=== PATIENT | female | born 1935 | race Hispanic/Latino ===

== ENCOUNTER 2017-09-04 19:25 | Emergency (ER) | payer MEDICARE ==
[2017-09-04 19:25] VITALS: BMI 19.8
== END 2017-09-04 20:44 | disposition left against medical advice (07) ==
LOC: ED 19:25
DX: Z02.89 Encounter for other administrative examinations (principal); R10.9 Unspecified abdominal pain

== ENCOUNTER 2017-09-09 13:15 | Inpatient (IN) | payer MEDICARE ==
[2017-09-09 15:17] LABS: BASO # 0.04 K/mm3 (0.0-2.0); BASO % 0.5 % (0.0-3.0); EOS # 0.1 (0.0-0.7); EOS % 0.8 % (1.5-5.0); GRAN # 6.33 (1.4-6.5); GRAN % 79.1 % (50.0-68.0); HEMOGLOBIN 14.1 g/dL (12.0-16.0); LYMPH # 1.1 (1.2-3.4); LYMPH % 13.8 % (22.0-35.0); MEAN CELL VOLUME 90.1 fl (80.0-105.0); MEAN CORPUSCULAR HEMOGLOBIN 30.3 pg (25.0-35.0); MEAN CORPUSCULAR HGB CONC 33.6 g/dl (31.0-37.0); MONO # 0.5 (0.1-0.6); MONO % 5.8 % (1.0-6.0); RBC 4.66 10^6/uL (3.5-6.1); RED CELL DISTRIBUTION WIDTH 13.3 % (11.5-14.5)
[2017-09-09 15:20] LABS: ALB/GLOB RATIO 1.4 (1.1-1.8); ALBUMIN 4.1 g/dL (3.0-4.8); ALT/SGPT 27 U/L (7-56); AST/SGOT 46 U/L (14-36); BLOOD UREA NITROGEN 25 mg/dL (7-21); CALCIUM 10.4 mg/dL (8.4-10.5); GFR AFRICAN-AMERICAN > 60; GFR NON-AFRICAN AMERICAN 60; MAGNESIUM 1.8 mg/dL (1.7-2.2)
[2017-09-09 15:31] LABS: TROPONIN I < 0.01 ng/mL
[2017-09-09 15:35] LABS: INR 1.07 (0.93-1.08); PARTIAL THROMBOPLASTIN TIME 30.3 Seconds (25.1-36.5); PROTHROMBIN TIME 12.2 SECONDS (9.4-12.5)
--- NOTE | 2017-09-09 15:41 | CT ---
PROCEDURE: CT HEAD WITHOUT CONTRAST. HISTORY: s/p trauma/dizziness COMPARISON: None available. TECHNIQUE: Axial computed tomography images were obtained through the head/brain without intravenous contrast. Radiation dose: Total exam DLP = 835 mGy-cm. This CT exam was performed using one or more of the following dose reduction techniques: Automated exposure control, adjustment of the mA and/or kV according to patient size, and/or use of iterative reconstruction technique. FINDINGS: HEMORRHAGE: No intracranial hemorrhage. BRAIN: No mass effect or edema. No atrophy or chronic microvascular ischemic changes. VENTRICLES: Unremarkable. No hydrocephalus. CALVARIUM: Unremarkable. PARANASAL SINUSES: Unremarkable as visualized. No significant inflammatory changes. MASTOID AIR CELLS: Unremarkable as visualized. No inflammatory changes. OTHER FINDINGS: None. IMPRESSION: No acute findings
[2017-09-09 15:47] VITALS: BMI 19.0
[2017-09-09 16:10] LABS: PH,URINE 6.5 (4.7-8.0); URINE BILIRUBIN NEGATIVE (NEGATIVE); URINE BLOOD TRACE-INTACT (NEGATIVE); URINE GLUCOSE (UA) NEGATIVE (NEGATIVE); URINE LEUKOCYTE ESTERASE SMALL Leu/uL (NEGATIVE); URINE NITRATE POSITIVE (NEGATIVE); URINE PROTEIN NEGATIVE mg/dL (<30 mg/dL); URINE UROBILINOGEN 0.2 E.U./dL (<1 E.U./dL)
--- NOTE | 2017-09-09 16:16 | ED PDOC ---
Arrival/HPI - General Chief Complaint: Trauma Time Seen by Provider: 09/09/17 14:23 Historian: Patient - History of Present Illness Narrative History of Present Illness (Text): 09/09/17 16:13 82yo female who present with complaint of dizziness and head laceration s/p the the fall. The daughter by the bedside states patient has not been feeling fine for a week. States she was nauseous, had abdominal pain with poor appetite. She states that the symptoms resolved and then she suddenly became dizzy today and fell sustaining a head laceration. States she wasn't sure if she had LOC. She otherwise denies any current somatic complaint. Denies focal weakness, dizziness , visual changes, abdominal pain, nausea, vomiting, back pain, any other complaint. Past Medical History - Provider Review Nursing Documentation Reviewed: Yes - Infectious Disease Hx of Infectious Diseases: None - Tetanus Immunization Tetanus Immunization: Unknown - Cardiac Hx Cardiac Disorders: Yes Hx Hypertension: Yes - Pulmonary Hx Respiratory Disorders: No - Neurological Hx Neurological Disorder: No - HEENT Hx HEENT Disorder: Yes Hx Cataracts: Yes Hx Deafness: Yes - Renal Hx Renal Disorder: No - Endocrine/Metabolic Hx Endocrine Disorders: Yes - Hematological/Oncological Hx Blood Disorders: No - Integumentary Hx Dermatological Disorder: No - Musculoskeletal/Rheumatological Hx Falls: No - Gastrointestinal Hx Gastrointestinal Disorders: No - Genitourinary/Gynecological Hx Genitourinary Disorders: No - Psychiatric Hx Psychophysiologic Disorder: No Hx Substance Use: No - Surgical History Hx Cataract Extraction: Yes Other/Comment: stents in legs - Anesthesia Hx Anesthesia: Yes Hx Anesthesia Reactions: No - Suicidal Assessment Feels Threatened In Home Enviroment: No Family/Social History - Physician Review Nursing Documentation Reviewed: Yes Family/Social History: Unknown Family HX Smoking Status: Former Smoker Hx Alcohol Use: No Hx Substance Use: No Hx Substance Use Treatment: No Allergies/Home Meds Allergies/Adverse Reactions: Allergies Penicillins Allergy (Mild, Verified 09/09/17 13:24) ANAPHYLAXIS Home Medications: Home Meds Medication Instructions Recorded Confirmed Alendronate [Fosamax] 10 mg PO QWK 09/09/17 09/09/17 Alprazolam [Xanax] 0.5 mg PO DAILY 09/09/17 09/09/17 Lisinopril [Zestril] 30 mg PO DAILY 09/09/17 09/09/17 Lovastatin [Lovastatin] 10 mg PO DAILY 09/09/17 09/09/17 Naproxen [EC-Naprosyn] 500 mg PO DAILY 09/09/17 09/09/17 Review of Systems - Physician Review All systems were reviewed & negative as marked: Yes - Review of Systems Constitutional: Normal Eyes: Normal ENT: Normal Respiratory: Normal Cardiovascular: Normal Gastrointestinal: Normal Genitourinary Female: Normal Musculoskeletal: Normal Skin: Laceration Neurological: Dizziness. absent: Headache, Focal Weakness, Gait Changes, Speech Changes, Facial Droop Endocrine: Normal Hemo/Lymphatic: Normal Psychiatric: Normal Physical Exam Vital Signs Reviewed: Yes Vital Signs Temp Pulse Resp BP Pulse Ox 09/09/17 15:45 97.9 F 88 18 156/83 H 98 09/09/17 13:27 98.6 F 114 H 16 132/66 99 Temperature: Afebrile Blood Pressure: Normal Pulse: Tachycardic Respiratory Rate: Normal Appearance: Positive for: Well-Appearing, Non-Toxic, Comfortable Pain Distress: None Mental Status: Positive for: Alert and Oriented X 3 - Systems Exam Head: Present: Atraumatic, Normocephalic Pupils: Present: PERRL Extroacular Muscles: Present: EOMI Conjunctiva: Present: Normal Mouth: Present: Moist Mucous Membranes Neck: Present: Normal Range of Motion Respiratory/Chest: Present: Clear to Auscultation, Good Air Exchange. No: Respiratory Distress, Accessory Muscle Use Cardiovascular: Present: Regular Rate and Rhythm, Normal S1, S2. No: Murmurs Abdomen: Present: Normal Bowel Sounds. No: Tenderness, Distention, Peritoneal Signs Back: Present: Normal Inspection Upper Extremity: Present: Normal Inspection. No: Cyanosis, Edema Lower Extremity: Present: Normal Inspection. No: Edema Neurological: Present: GCS=15, CN II-XII Intact, Speech Normal, Motor Func Grossly Intact, Normal Sensory Function, Normal Cerebellar Funct, Norm Deep Tendon Reflexes, Memory Normal, Other (No focal neurological deficit) Skin: Present: Warm, Dry, Normal Color, Laceration (2.ocm linear laceration to the occipital scalp). No: Rashes Psychiatric: Present: Alert, Oriented x 3, Normal Insight, Normal Concentration Medical Decision Making ED Course and Treatment: 09/10/17 01:59 82yo female present with complaint of dizziness and scalp laceration. She was neurologically intact in ED. AAO x3. She denied pain or any other somatic complaint in ED. Scalp laceration was irrigated with NS and approximated with 4staples. Lab was unremarkable. PT had UTI and was started on Levaquin Head CT was negative PT however was admitted secondary to complaint of dizziness, her near syncopal episode for further evaluation of possible cardiogenic or neurogenic cause. EKG NSR with Incomplete RBBB @94bpm Case was DW Dr. Gastelum and he admitted pt. - Lab Interpretations Lab Results: 09/09/17 14:24 09/09/17 14:24 Lab Results 09/09/17 14:24: Sodium 139, Potassium 4.3, Chloride 102, Carbon Dioxide 27, Anion Gap 15, BUN 25 H, Creatinine 0.9, Est GFR ( Amer) > 60, Est GFR ( Non-Af Amer) 60, Random Glucose 123 H, Calcium 10.4, Magnesium 1.8, Total Bilirubin 0.6, AST 46 H, ALT 27, Alkaline Phosphatase 59, Lactate Dehydrogenase 450, Total Creatine Kinase 82, Troponin I < 0.01, Total Protein 7.1, Albumin 4.1 , Globulin 3.0, Albumin/Globulin Ratio 1.4 09/09/17 14:24: Urine Color Yellow, Urine Appearance Sl cloudy, Urine pH 6.5, Ur Specific [place] 1.010, Urine Protein Negative, Urine Glucose (UA) Negative, Urine Ketones Negative, Urine Blood Trace-intact H, Urine Nitrate Positive H, Urine Bilirubin Negative, Urine Urobilinogen 0.2, Ur Leukocyte Esterase Small H , Urine RBC 1 - 3, Urine WBC 10 - 15, Ur Epithelial Cells 4 - 5, Urine Bacteria Large 09/09/17 14:24: PT 12.2, INR 1.07, APTT 30.3 09/09/17 14:24: WBC 8.0, RBC 4.66, Hgb 14.1, Hct 42.0, MCV 90.1, MCH 30.3, MCHC 33.6, RDW 13.3, Plt Count 234, MPV 11.0, Gran % 79.1 H, Lymph % (Auto) 13.8 L, [place] % (Auto) 5.8, Eos % (Auto) 0.8 L, Baso % (Auto) 0.5, Gran # 6.33, Lymph # 1.1 L, [place] # 0.5, Eos # 0.1, Baso # 0.04 - RAD Interpretation Radiology Orders: 09/09/17 14:24 HEAD W/O CONTRAST [CT] Stat - Medication Orders Current Medication Orders: Atorvastatin Calcium (Lipitor) 10 mg PO HS MIGNON Lisinopril (Zestril) 30 mg PO DAILY MIGNON Discontinued Medications Acetaminophen (Tylenol 325mg Tab) 650 mg PO STAT STA Stop: 09/09/17 22:31 Last Admin: 09/09/17 22:37 Dose: 650 mg [facility] Pain/Vitals Document 09/09/17 22:37 MV (Rec: 09/09/17 22:37 MV [id number]) Pain Reassessment Is This A Pain ReAssessment? No Sleep Is patient sleeping during reassessment? No Presence of Pain Presence of Pain Yes Pain Scale Used Pain Scale Used Numeric Location Pain Location Body Record Press Tender Description Throbbing Intensity 8 Pain Behavior Facial Grimacing Alleviating Factors Medication Re-Assess: [facility] Pain/Vitals Document 09/09/17 23:37 MV (Rec: 09/10/17 01:31 MV [id number]) Pain Reassessment Is This A Pain ReAssessment? Yes Sleep Is patient sleeping during reassessment? Yes Levofloxacin/Dextrose (Levaquin 500mg) 500 mg in 100 mls @ 100 mls/hr IVPB STAT STA PRN Reason: Protocol Stop: 09/09/17 17:29 Last Admin: 09/09/17 16:56 Dose: 100 mls/hr eMAR Start Stop Document 09/09/17 16:56 LA (Rec: 09/09/17 16:56 LA [id number]) Intravenous Solution Start Date 09/09/17 Start Time 16:56 End Date 09/09/17 End time 17:56 Total Infusion Time 60 Ciprofloxacin (Cipro 200mg/100ml D5w) 100 mls @ 67 mls/hr IVPB Q12 MIGNON PRN Reason: Protocol Stop: 09/09/17 23:30 Last Admin: 09/09/17 22:21 Dose: 67 mls/hr eMAR Start Stop Document 09/09/17 22:21 MV (Rec: 09/09/17 22:21 MV [id number]) Intravenous Solution Start Date 09/09/17 Start Time 22:21 End Date 09/09/17 End time 23:51 Total Infusion Time 90 Pneumococcal Polyvalent Vaccine (Pneumovax 23 Vaccine) 0.5 ml IM .ONCE ONE Stop: 09/09/17 19:57 Procedure: Wound Repair - Consent Obtained Consent obtained: Verbal - Performed by Performed by: Mid-level Provider - Indications Indication(s):: Laceration - Location Location:: Scalp Shape:: Linear Dimensions Length cm: 2.0 - Debris Debris:: None - Irrigated Irrigated with ml of normal saline: 50 - Complexity Complexity:: Intermediate (2 layer) - Wound repair method [place]:: Tissue glue (Edges approximated 4staples) - Muscle repiar layer closed with Muscle repair layer closed with:: Wound well approximated, Abx ointment applied , Tetanus ordered - Patient tolerated procedure Patient Tolerated Procedure:: Well Disposition/Present on Arrival - Present on Arrival Any Indicators Present on Arrival: No History of DVT/PE: No History of Uncontrolled Diabetes: No Urinary Catheter: No History of Decub. Ulcer: No History Surgical Site Infection Following: None - Disposition Have Diagnosis and Disposition been Completed?: Yes Diagnosis: Laceration, Near syncope, UTI (urinary tract infection) Disposition: HOSPITALIZED Disposition Time: 16:15 Patient Problems: Current Active Problems Problem Status Onset Laceration Acute Near syncope Acute UTI (urinary tract infection) Acute Condition: FAIR
[2017-09-09 16:27] LABS: URINE APPEARANCE SL CLOUDY (CLEAR); URINE COLOR YELLOW (YELLOW)
[2017-09-09] MEDS ORDERED: levoFLOXacin 500 mg in D5W 500 MG/100 ML BAG IVPB STA (16:30)
[2017-09-09 16:31] LABS: URINE BACTERIA LARGE (NEG)
[2017-09-09] MEDS ORDERED: Influenza Vaccine 60 mcg/0.5 mL SYR (4YR UP) IM ONE (19:56)
[2017-09-09] MEDS ORDERED: Pneumococcal 23-Valent Vaccine IM ONE (19:56)
[2017-09-09] MEDS ORDERED: Ciprofloxacin 200mg/100ml D5W 100 ML IVPB SCH (22:00)
--- NOTE | 2017-09-09 22:30 | CP.PCM.PN ---
Subjective - Date & Time of Evaluation Date of Evaluation: 09/09/17 Time of Evaluation: 22:30 - Subjective Subjective: Patient was seen at bedside. Complains of mild headache in frontal region. No nausea, dizziness, weakness, paraesthesia. Medical record was reviewed. This 82 year old white woman was admitted with chills , mild headache. Has PMH of HTN,dyslipidemia. Objective - Vital Signs/Intake and Output Vital Signs (last 24 hours): Temp Pulse Resp BP Pulse Ox 97.8 F 81 18 137/60 99 09/09/17 19:47 09/09/17 19:47 09/09/17 19:47 09/09/17 19:47 09/09/17 17:43 - Medications Medications: Current Medications Atorvastatin Calcium (Lipitor) 10 mg PO HS MIGNON Ciprofloxacin (Cipro 200mg/100ml D5w) 100 mls @ 67 mls/hr IVPB Q12 MIGNON PRN Reason: Protocol Stop: 09/09/17 23:30 Last Admin: 09/09/17 22:21 Dose: 67 mls/hr Lisinopril (Zestril) 30 mg PO DAILY MIGNON - Labs Labs: PT 12.2 SECONDS (9.4-12.5) 09/09/17 14:24 INR 1.07 (0.93-1.08) 09/09/17 14:24 APTT 30.3 Seconds (25.1-36.5) 09/09/17 14:24 Most Recent Lab Values WBC 8.0 10^3/ul (4.5-11.0) 09/09/17 14:24 RBC 4.66 10^6/uL (3.5-6.1) 09/09/17 14:24 Hgb 14.1 g/dL (12.0-16.0) 09/09/17 14:24 Hct 42.0 % (36.0-48.0) 09/09/17 14:24 MCV 90.1 fl (80.0-105.0) 09/09/17 14:24 MCH 30.3 pg (25.0-35.0) 09/09/17 14:24 MCHC 33.6 g/dl (31.0-37.0) 09/09/17 14:24 RDW 13.3 % (11.5-14.5) 09/09/17 14:24 Plt Count 234 10^3/uL (120.0-450.0) 09/09/17 14:24 MPV 11.0 fl (7.0-11.0) 09/09/17 14:24 Gran % 79.1 % (50.0-68.0) H 09/09/17 14:24 Lymph % (Auto) 13.8 % (22.0-35.0) L 09/09/17 14:24 [place] % (Auto) 5.8 % (1.0-6.0) 09/09/17 14:24 Eos % (Auto) 0.8 % (1.5-5.0) L 09/09/17 14:24 Baso % (Auto) 0.5 % (0.0-3.0) 09/09/17 14:24 Gran # 6.33 (1.4-6.5) 09/09/17 14:24 Lymph # 1.1 (1.2-3.4) L 09/09/17 14:24 [place] # 0.5 (0.1-0.6) 09/09/17 14:24 Eos # 0.1 (0.0-0.7) 09/09/17 14:24 Baso # 0.04 K/mm3 (0.0-2.0) 09/09/17 14:24 PT 12.2 SECONDS (9.4-12.5) 09/09/17 14:24 INR 1.07 (0.93-1.08) 09/09/17 14:24 APTT 30.3 Seconds (25.1-36.5) 09/09/17 14:24 Sodium 139 mmol/L (132-148) 09/09/17 14:24 Potassium 4.3 mmol/L (3.6-5.0) 09/09/17 14:24 Chloride 102 mmol/L (98-107) 09/09/17 14:24 Carbon Dioxide 27 mmol/L (21-33) 09/09/17 14:24 Anion Gap 15 (10-20) 09/09/17 14:24 BUN 25 mg/dL (7-21) H 09/09/17 14:24 Creatinine 0.9 mg/dl (0.7-1.2) 09/09/17 14:24 Est GFR ( Amer) > 60 09/09/17 14:24 Est GFR (Non-Af Amer) 60 09/09/17 14:24 Random Glucose 123 mg/dL (70-110) H 09/09/17 14:24 Calcium 10.4 mg/dL (8.4-10.5) 09/09/17 14:24 Magnesium 1.8 mg/dL (1.7-2.2) 09/09/17 14:24 Total Bilirubin 0.6 mg/dL (0.2-1.3) 09/09/17 14:24 AST 46 U/L (14-36) H 09/09/17 14:24 ALT 27 U/L (7-56) 09/09/17 14:24 Alkaline Phosphatase 59 U/L (38-126) 09/09/17 14:24 Lactate Dehydrogenase 450 U/L (333-699) 09/09/17 14:24 Total Creatine Kinase 82 U/L (35-230) 09/09/17 14:24 Troponin I < 0.01 ng/mL 09/09/17 14:24 Total Protein 7.1 g/dL (5.8-8.3) 09/09/17 14:24 Albumin 4.1 g/dL (3.0-4.8) 09/09/17 14:24 Globulin 3.0 gm/dL 09/09/17 14:24 Albumin/Globulin Ratio 1.4 (1.1-1.8) 09/09/17 14:24 Urine Color Yellow (YELLOW) 09/09/17 14:24 Urine Appearance Sl cloudy (CLEAR) 09/09/17 14:24 Urine pH 6.5 (4.7-8.0) 09/09/17 14:24 Ur Specific [place] 1.010 (1.005-1.035) 09/09/17 14:24 Urine Protein Negative mg/dL (<30 mg/dL) 09/09/17 14:24 Urine Glucose (UA) Negative mg/dL (NEGATIVE) 09/09/17 14:24 Urine Ketones Negative mg/dL (NEGATIVE) 09/09/17 14:24 Urine Blood Trace-intact (NEGATIVE) H 09/09/17 14:24 Urine Nitrate Positive (NEGATIVE) H 09/09/17 14:24 Urine Bilirubin Negative (NEGATIVE) 09/09/17 14:24 Urine Urobilinogen 0.2 E.U./dL (<1 E.U./dL) 09/09/17 14:24 Ur Leukocyte Esterase Small [place]/uL (NEGATIVE) H 09/09/17 14:24 Urine RBC 1 - 3 /hpf (0-2) 09/09/17 14:24 Urine WBC 10 - 15 /hpf (0-6) 09/09/17 14:24 Ur Epithelial Cells 4 - 5 /hpf (0-5) 09/09/17 14:24 Urine Bacteria Large (NEG) 09/09/17 14:24 - Constitutional Appears: Well, No Acute Distress - Head Exam Head Exam: ATRAUMATIC, NORMAL INSPECTION, NORMOCEPHALIC Additional comments: There is a bandage on scalp. - Eye Exam Eye Exam: Normal appearance - ENT Exam ENT Exam: Normal External Ear Exam - Neck Exam Neck Exam: Normal Inspection - Respiratory Exam Respiratory Exam: NORMAL BREATHING PATTERN - Cardiovascular Exam Cardiovascular Exam: absent: JVD - GI/Abdominal Exam GI & Abdominal Exam: absent: Distended - Rectal Exam Rectal Exam: Deferred - Exam Additional comments: Deferred. - Extremities Exam Extremities Exam: Normal Inspection - Back Exam Back Exam: NORMAL INSPECTION - Neurological Exam Neurological Exam: Alert, Awake, Oriented x3 - Psychiatric Exam Psychiatric exam: Normal Affect, Normal Mood - Skin Skin Exam: Normal Color Assessment and Plan - Assessment and Plan (Free Text) Assessment: Headache. HTN. Dyslipidemia. Plan: Tylenol 650 mg PO x 1. Continue present management.
[2017-09-10] MEDS ORDERED: TDAP Vaccine 0.5 mL Syr IM ONE (01:58)
[2017-09-10] MEDS ORDERED: Ciprofloxacin 200mg/100ml D5W 100 ML IVPB SCH (10:00)
--- NOTE | 2017-09-10 11:36 | HP ---
HISTORY OF PRESENT ILLNESS: The patient is an 82-year-old white female with history of mild hypertension, mild hyperlipidemia. The patient had been in her house, had been feeling nauseous during the day, loss of appetite, had bend over to pick something up. When she stood up, the patient became lightheaded and dizzy, fell back. Possible syncope, striking her head on the table causing excessive bleeding from her scalp. The patient came to the emergency room because the bleeding was not stopped. She has no memory of whether she had a syncopal episode or not. She denies any history of seizure disorder. She denies any loss of feeling or strength in the upper and lower extremities. She denies any loss of vision or of impediment to speech. She was evaluated in the emergency room. She had stitches placed in her scalp. She was found to be still lightheadedness and dizzy and nauseous. Also, was found to have a urinary tract infection on laboratory data and was admitted to the hospital. PHYSICAL EXAMINATION: GENERAL: Shows a well-developed, but thin white female, in no apparent distress. HEENT: Essentially within normal limits. HEART: Reveals sinus rhythm. No S3 or murmurs. CHEST: Clear to auscultation and percussion. Carotids are without bruits. ABDOMEN: Benign. EXTREMITIES: No cyanosis, clubbing or edema. There is no CVA tenderness. There is no tenderness over the suprapubic area. The patient does have a laceration of the occipital scalp, which has been closed with sutures and the wounds are clean and dry. NEUROLOGIC: Grossly intact. There is no focal lateralizing defects. Cranial nerves II through XII are intact. The patient's speech is fluent. She is awake and oriented to time, person and place. IMPRESSION: An 82-year-old white female presenting with a syncopal episode, laceration of the scalp, urinary tract infection and nausea and vomiting. Ulysses Gastelum MD
[2017-09-10] MEDS: Tmp-Smz 800 mg-160 mg DS Tab PO SCH ×2 (11:48→18:51)
--- NOTE | 2017-09-10 20:57 | CARD ---
APPROVED REPORT EKG Measurement Heart [id number] ID [id number] <Conclusion> Normal sinus rhythm Possible Left atrial enlargement Incomplete right bundle branch block Nonspecific T wave abnormality Prolonged QT Abnormal ECG
[2017-09-11] MEDS: Tmp-Smz 800 mg-160 mg DS Tab PO SCH ×2 (09:12→18:13)
[2017-09-11] MEDS ORDERED: Alum-Mag Hydrox-Simethicone Susp (30 mL) PO ONE (09:43)
--- NOTE | 2017-09-11 13:05 | US ---
PROCEDURE: Bilateral carotid artery duplex ultrasound HISTORY: Carotid stenosis syncope PHYSICIAN(S): Benigno Thornton MD. TECHNIQUE: Duplex sonography and color-flow Doppler were used to evaluate the carotid bifurcations and limited segments of the vertebral arteries bilaterally. FINDINGS: There is moderate irregular heterogeneous echogenic plaque noted at the carotid bifurcations bilaterally. The peak systolic velocity in the proximal right internal carotid artery is 225 cm/sec. This corresponds to a 60-79 percent proximal right ICA stenosis. Normal systolic velocities are noted in the proximal right external carotid artery. There is antegrade flow in the right vertebral artery. The peak systolic velocity in the proximal left internal carotid artery is 127 cm/sec. This corresponds to a 40-59 % proximal left ICA stenosis. Normal systolic velocities are noted in the proximal left external carotid artery. There is antegrade flow in the dominant left vertebral artery. IMPRESSION: 1. 60-79 percent proximal right ICA stenosis. 2. 40-59 percent proximal left ICA stenosis. 3. Antegrade flow in both vertebral arteries.
--- NOTE | 2017-09-11 13:10 | PN ---
DATE: 09/11/2017 SUBJECTIVE: An 82-year-old white female admitted to the hospital after a syncopal episode, hitting back of her head, lacerating her head, having to be stapled. The patient continues to have nausea, abdominal pain, lightheadedness, dizziness, and difficulty with bouts. PHYSICAL EXAMINATION: Otherwise unremarkable. Workup for syncope. The patient will get physical therapy and possible TCU evaluation and also GI evaluation. Ulysses Gastelum MD
--- NOTE | 2017-09-11 22:32 | CP.PCM.PN ---
Subjective - Date & Time of Evaluation Date of Evaluation: 09/11/17 Time of Evaluation: 22:31 - Subjective Subjective: draft gas pain maalox did not work this am request med rx, simethicone Objective - Vital Signs/Intake and Output Vital Signs (last 24 hours): Temp Pulse Resp BP Pulse Ox 97.6 F 86 20 166/75 H 95 09/11/17 16:00 09/11/17 18:00 09/11/17 16:00 09/11/17 16:00 09/11/17 16:00 - Medications Medications: Current Medications Acetaminophen (Tylenol 325mg Tab) 650 mg PO Q6H PRN PRN Reason: Headache Last Admin: 09/10/17 18:51 Dose: 650 mg Atorvastatin Calcium (Lipitor) 10 mg PO HS MIGNON Last Admin: 09/11/17 21:39 Dose: 10 mg Lisinopril (Zestril) 30 mg PO DAILY MIGNON Last Admin: 09/11/17 09:13 Dose: 30 mg Ondansetron HCl (Zofran Tab) 4 mg PO Q8H PRN PRN Reason: Nausea/Vomiting Pantoprazole Sodium (Protonix Ec Tab) 40 mg PO 0600 MIGNON Trimethoprim/Sulfamethoxazole (Bactrim Ds Tab) 1 tab PO BID MIGNON PRN Reason: Protocol Last Admin: 09/11/17 18:13 Dose: 1 tab - Labs Labs: PT 12.2 SECONDS (9.4-12.5) 09/09/17 14:24 INR 1.07 (0.93-1.08) 09/09/17 14:24 APTT 30.3 Seconds (25.1-36.5) 09/09/17 14:24
[2017-09-11] MEDS ORDERED: Simethicone 80 mg Chewtab PO STA (22:33)
--- NOTE | 2017-09-11 22:38 | CON ---
DATE: 09/11/2017 REQUESTING PHYSICIAN: Dr. Gastelum. REASON FOR CONSULT: I have been asked to see this 82-year-old female who was experiencing dizziness for several days, fell at home and sustained a scalp laceration, requiring suturing in the emergency room. I have been asked to see this patient for nausea and vague abdominal discomfort. These symptoms improved when she felt dizzy and fell at home. She denies any weight loss, rectal bleeding, melena, hematemesis, fevers, or chills. PAST MEDICAL HISTORY: Notable for hypertension, peripheral vascular disease. PAST SURGICAL HISTORY: Notable for cataract surgery. SOCIAL HISTORY: She denies alcohol use. She quit cigarette smoking many years ago. MEDICATIONS AT HOME: Include alendronate, alprazolam, lisinopril, lovastatin, and naproxen. PHYSICAL EXAMINATION: GENERAL: Elderly female, lying in bed, in no acute distress. VITAL SIGNS: Reveal temperature of 98, blood pressure 156/77, heart rate of 81. HEENT: Reveals a laceration in her left posterior scalp in the occipital region with multiple trevor. It appears there appears to be 3. Conjunctivae pink. Sclerae white. NECL: Supple. CHEST: Reveals lungs to be clear. HEART: Reveals regular rate and rhythm. ABDOMEN: Soft, nontender. EXTREMITIES: Show no edema. LABORATORY DATA: Reveals white blood cell count of 8, hemoglobin 14, platelet count 234,000. Chemistries reveal BUN 25, creatinine 0.9. IMPRESSION: An 82-year-old female with status post fall at home, sustaining a left posterior scalp laceration. The patient has been having symptoms of nausea, mild abdominal discomfort with some reflux, and loss of appetite for several days prior to the fall. The patient may have some component of dehydration leading to her fall. The patient has never had an endoscopy or colonoscopy. RECOMMENDATIONS: 1. Continue Protonix 40 mg once a day. 2. Encourage oral intake and fluids. 3. I will range the patient to have an endoscopy as an outpatient. Gustavo Khan MD
[2017-09-12] MEDS: Pantoprazole 40 mg EC Tab PO SCH (06:22)
[2017-09-12] MEDS: Tmp-Smz 800 mg-160 mg DS Tab PO SCH ×2 (09:03→17:51)
--- NOTE | 2017-09-12 11:22 | CARD ---
APPROVED REPORT EXAM: Two-dimensional and M-mode echocardiogram with Doppler and color Doppler. Other Information Quality : FairRhythm : INDICATION Syncope 2D DIMENSIONS Left Atrium (2D)3.6 (1.6-4.0cm)IVSd0.8 (0.7-1.1cm) LVDd3.9 (3.9-5.9cm)PWd0.9 (0.7-1.1cm) LVDs2.7 (2.5-4.0cm)FS (%) 32.0 % LVEF (%)60.0 (>50%) M-Mode DIMENSIONS Aortic Root2.90 (2.2-3.7cm)Aortic Cusp Exc.1.50 (1.5-2.0cm) Aortic Valve AoV Peak Pflscsdy654.0cm/s Mitral Valve MV E Ijqdivit63.8cm/sMV A Qotbasuf41.2cm/sE/A ratio0.8 TDI Lateral E' Peak V10.90cm/sMedial E' Peak V7.51cm/sE/Lateral E'4.9 E/Medial E'7.2 Pulmonary Valve PV Peak Ewzoxohx00.6cm/sPV Peak Grad.2mmHg Tricuspid Valve TR Peak [id number]/sRAP [id number] Peak Gr.31mmHg [id number] LEFT VENTRICLE The left ventricle is normal size. There is normal left ventricular wall thickness. The left ventricular function is normal. The left ventricular ejection fraction is within the normal range. There is normal LV segmental wall motion. RIGHT VENTRICLE The right ventricle is normal size. ATRIA The left atrium size is normal. The right atrium size is normal. The interatrial septum is intact with no evidence for an atrial septal defect. AORTIC VALVE The aortic valve is mildly calcified. MITRAL VALVE The mitral valve is normal in structure. Mitral regurgitation is mild. TRICUSPID VALVE The tricuspid valve is normal in structure. There is mild tricuspid regurgitation. PULMONIC VALVE The pulmonic valve is not well visualized. GREAT VESSELS The aortic root is normal in size. PERICARDIAL EFFUSION There is no pericardial effusion. <Conclusion> The left ventricle is normal size. There is normal left ventricular wall thickness. The left ventricular function is normal. The aortic valve is mildly calcified. Aortic sclerosis. Mitral regurgitation is mild. There is mild tricuspid regurgitation.
--- NOTE | 2017-09-12 19:19 | PN ---
DATE: SUBJECTIVE: An 82-year-old white female with history of mild hypertension who had a syncopal episode falling back striking the back of her head with lacerations requiring stapling of the back of her occipital scalp. Patient also had several days of severe nausea and vomiting, which has resolved. Today, she is tolerating her diet better. She is having workup of her syncope and confusion. Her wounds are clean and dry. PHYSICAL EXAMINATION: CHEST: Clear to auscultation and percussion. HEART: S1, S2, regular sinus rhythm. ABDOMEN: Benign. PLAN: Awaiting GI evaluation and continue workup for her syncope. Awaiting a Holter monitor. Ulysses Gastelum MD
--- NOTE | 2017-09-12 21:35 | PN ---
DATE: 09/12/2017 SUBJECTIVE: The patient had an episode of gassy abdominal pain. She was given simethicone with prompt relief. She denies any abdominal pain currently. She denies any nausea, vomiting. She denies any dizziness. She is tolerating solid foods. PHYSICAL EXAMINATION VITAL SIGNS: Reveal temperature of 97.7, blood pressure 150/78, heart rate of 84. HEENT: Reveals a scalp laceration on her left occiput. There is no bleeding in this area. Sclerae white. Conjunctivae pink. NECK: Supple. CHEST: Lungs are clear. HEART: Exam reveals a regular rate and rhythm. ABDOMEN: Soft, nontender. EXTREMITY: Show no edema. LABORATORY DATA: No new laboratory data are available. IMPRESSION: 1. Status post fall with left occipital scalp laceration. 2. Abdominal pain associated with nausea which has improved. The patient is tolerating a diet. RECOMMENDATIONS: 1. Continue Protonix. 2. Outpatient endoscopy. 3. The patient is being evaluated for TCU for subacute rehabilitation. Gustavo Khan MD
[2017-09-13] MEDS: Pantoprazole 40 mg EC Tab PO SCH (06:01)
[2017-09-13] MEDS ORDERED: Iodixanol 320 MG/ML 100 ML BOTTLE IV ONE (07:51)
--- NOTE | 2017-09-13 08:36 | CARD ---
APPROVED REPORT Reason for Test: SYNCOPE Hookup date: 2017-09-11 Scan date: 2017-09-12 Recording time: 23 HR 59 MIN Heart Rate Data Total Beats: [id number] Min HR: 69 BPM at 4:53AM Avg HR: 86 BPM Max HR: 129 BPM at 11:25AM Ventricular Ectopy Total VE Beats: 108 (0.1%) Single/Interp PVC: 107/0 Single/Late VE's: 1/0 Supraventricular Ectopy Total VE Beats: 1042 (0.8%) Atrial Pairs: 1 Events Longest R-R: 1.1 sec at 4:50 AM Single PAC's: 1040 Conclusion SINUS RHYTHM / SINUS TACHYCARDIA MINIMUM HR 69 BPM MAXIMUM HR 129 BPM VERY RARE APC'S, ISOLATED PAIRED ISOLATED VPC'S THERE WERE NO DIARY ENTRIES.
[2017-09-13 09:10] VITALS: BP 114/64; RESP 18; TEMP 97.9; O2SAT 96
--- NOTE | 2017-09-13 09:16 | CT ---
PROCEDURE: CT Angiography of the neck with contrast HISTORY: doppler/syncope COMPARISON: None available. TECHNIQUE: Contiguous axial images of the neck were obtained from the level of the skull-base to the superior mediastinum in the arteriographic phase of enhancement. Coronal and sagittal reformats or also generated. IV contrast dose: 100 cc of Visipaque 320 Radiation Dose - DLP: 283 mGy-cm This CT exam was performed using one or more of the following dose reduction techniques: Automated exposure control, adjustment of the mA and/or kV according to patient size, and/or use of iterative reconstruction technique. FINDINGS: RIGHT CAROTID ARTERIES: Common Carotid Artery: Normal. Carotid Bifurcation: Calcified plaque is seen in the carotid bifurcation. There is a moderate degree of stenosis that is difficult to quantify due to the calcified plaque. On ultrasound the stenosis was measured at 60 to 70 9 percent. Internal Carotid Artery:Normal. External Carotid Artery (proximal branches): Normal. LEFT CAROTID ARTERIES: Common Carotid Artery: Normal. Carotid Bifurcation: Calcified plaque is also seen in the left carotid bifurcation with a more mild stenosis. On ultrasound the stenosis was measured at 40 to 59 percent Internal Carotid Artery:Normal. External Carotid Artery (proximal branches): Normal. VERTEBRAL ARTERIES: Right Vertebral Artery: Normal. Left Vertebral Artery: Normal. OTHER FINDINGS: None. IMPRESSION: Calcified plaque in both carotid bifurcations with moderate stenosis on the right and mild on the left.
[2017-09-13] MEDS: Tmp-Smz 800 mg-160 mg DS Tab PO SCH (10:12)
--- NOTE | 2017-09-13 11:12 | PN ---
DATE: SUBJECTIVE: This 82-year-old white female admitted to the hospital with syncopal episode and laceration of the scalp. The patient was found on carotid Doppler to have critical stenosis and coronary artery disease. She is now having a CTA of the carotid today. Rest of the laboratory data were unremarkable. PHYSICAL EXAMINATION: VITAL SIGNS: Stable. The patient's wound is clean and dry. Physical examination is unchanged. ABDOMEN: Soft. Nausea and vomiting has subsided. Ulysses Gastelum MD
[2017-09-13 12:31] VITALS: PULSE 82
--- NOTE | 2017-09-13 13:36 | PN ---
DATE: 09/13/2017 SUBJECTIVE: The patient is sitting up in a chair. She denies any further abdominal pain. The patient is constipated. She has not had a bowel movement in 4 days. She denies any nausea, vomiting. She denies any headaches, blurring of vision. She does admit to unsteady gait. PHYSICAL EXAMINATION: VITAL SIGNS: Reveal temperature of 97.9, blood pressure 114/64, heart rate of 76. HEENT: Reveal sclerae to be white. Conjunctivae pink. NECK: Supple. CHEST: Reveal lungs to be clear. HEART: Reveals regular rate and rhythm. ABDOMEN: Soft, nontender. EXTREMITIES: Show no edema. DIAGNOSTIC DATA: CT angiography reveals bilateral stenosis at the bifurcation of the carotid artery with moderate stenosis on the right and mild stenosis on the left. IMPRESSION: 1. Abdominal pain. 2. Moderate right carotid artery stenosis at the bifurcation. 3. Constipation. RECOMMENDATIONS: 1. Will start the patient on MiraLax 17 g three times a day. 2. I will start the patient on a baby aspirin. Gustavo Khan MD
[2017-09-13] MEDS ORDERED: POLYETHYLENE GLYCOL 3350 17 GM/Dose PACKET PO SCH (14:00)
== END 2017-09-13 17:10 | disposition home or self-care (01) | DRG 580 ==
LOC: ED 13:15 → ERH 16:21 → 3RNO 17:52 → OBSVTOIN 09-11 12:42
PROVIDERS: ADMIT Internal Medicine; ATTEND Internal Medicine
PROC: 0KQ03ZZ Repair Head Muscle, Percutaneous Approach (ICD-10-PCS; principal; 2017-09-09)
DX: S01.01XA Laceration without foreign body of scalp, initial encounter (principal); N39.0 Urinary tract infection, site not specified; I65.21 Occlusion and stenosis of right carotid artery; E86.0 Dehydration; I10 Essential (primary) hypertension; K59.00 Constipation, unspecified; R11.2 Nausea with vomiting, unspecified; E78.5 Hyperlipidemia, unspecified; Y93.89 Activity, other specified; W18.39XA Other fall on same level, initial encounter; Y92.099 Unspecified place in other non-institutional residence as the place of occurrence of the external cause; Z88.0 Allergy status to penicillin

== ENCOUNTER 2018-02-23 12:53 | Inpatient (IN) | payer MEDICARE ==
[2018-02-23] MEDS ORDERED: Morphine 4 mg/ml ISec IVP STA (13:24)
[2018-02-23] MEDS ORDERED: Sodium Chloride 0.9% 1,000 ML IV STA (13:24)
[2018-02-23] MEDS ORDERED: TDAP Vaccine 0.5 mL Syr IM ONE (13:29)
[2018-02-23] MEDS ORDERED: Sodium Chloride 0.9% 500 ML IV STA ×2 (13:31→16:44)
--- NOTE | 2018-02-23 13:32 | ED PDOC ---
Arrival/HPI - General Chief Complaint: Weakness/Neurological Deficit Time Seen by Provider: 02/23/18 13:23 Historian: Patient, Family (daughter at bedside) - History of Present Illness Narrative History of Present Illness (Text): 02/23/18 13:29 pt p/w + fall x 2 unwitnessed ~ 3 days ago; pt lives primarily by herself with her daughter living upstairs, pt's daughter found pt laying on the floor of her bathroom with copious diarrhea surrounding the patient 3 days ago; Pt did not know what had happened, pt likely passed out, pt states the diarrhea was profuse and lasted ~ 1-2 days; pt did not want to go to the hospital at that time as stated by daughter, pt was cleaned and helped to her bed and was then later on the same day found to be on the floor at the end of the bed, again unwitnessed; pt's daughter thought patient had fallen off again; pt did not remember the event; pt continued to refused medical care/evaluation; through out this time, daughter noted pt to have persistent weakness, appetite decr/ changes, increasing fatigue and lethargy, pt is sleeping often and pt appears to be more bed-bound; daughter decided to bring pt to the Emergency department today for further eval due to AMS/fatigue/lethargy; pt states left facial pain/ left headache/left neck pain, + left elbow pain, pt also noted b/l groin pain; pt denied fever/chills/sweats, no cp/sob/palpitations, no abd pain, no n/v, no numbness/tingling, no urinary changes, no gross bleeding; daughter denied any slurr speech, facial changes; pt is here for further eval; pt's without other complaints. PCP: DR Gastelum pt lives alone on the bottom floor, daughter lives upstairs pt is right hand dominate unknown tetanus date Time/Duration: < week (3 days ago) Symptom Onset: Gradual Symptom Course: Worsening Quality: Stabbing, Cramping Severity Level: Severe Activities at Onset: Rest Context: Home Past Medical History - Provider Review Nursing Documentation Reviewed: Yes - Travel History Have you recently traveled outside [place] w/in the past 3 mons?: No - Past History Past History: Non-Contributing - Infectious Disease Hx of Infectious Diseases: None - Tetanus Immunization Tetanus Immunization: Unknown - Reproductive Menopause: Yes Currently : No - Cardiac Hx Cardiac Disorders: Yes Hx Hypertension: Yes - Pulmonary Hx Respiratory Disorders: No - Neurological Hx Neurological Disorder: No - HEENT Hx HEENT Disorder: Yes Hx Cataracts: Yes Hx Deafness: Yes - Renal Hx Renal Disorder: No - Endocrine/Metabolic Hx Endocrine Disorders: Yes - Hematological/Oncological Hx Blood Disorders: No - Integumentary Hx Dermatological Disorder: No - Musculoskeletal/Rheumatological Hx Falls: No - Gastrointestinal Hx Gastrointestinal Disorders: No - Genitourinary/Gynecological Hx Genitourinary Disorders: No - Psychiatric Hx Psychophysiologic Disorder: No Hx Substance Use: No - Surgical History Hx Cataract Extraction: Yes Other/Comment: stents in legs - Anesthesia Hx Anesthesia: Yes Hx Anesthesia Reactions: No - Suicidal Assessment Feels Threatened In Home Enviroment: No Family/Social History - Physician Review Nursing Documentation Reviewed: Yes Family/Social History: No Known Family HX Smoking Status: Former Smoker Hx Alcohol Use: No Hx Substance Use: No Hx Substance Use Treatment: No Allergies/Home Meds Allergies/Adverse Reactions: Allergies Penicillins Allergy (Mild, Verified 09/09/17 13:24) ANAPHYLAXIS Home Medications: Home Meds Medication Instructions Recorded Confirmed Alendronate [Fosamax] 10 mg PO QWK 09/09/17 09/09/17 Alprazolam [Xanax] 0.5 mg PO DAILY 09/09/17 09/09/17 Lisinopril [Zestril] 30 mg PO DAILY 09/09/17 09/09/17 Lovastatin 10 mg PO DAILY 09/09/17 09/09/17 Naproxen [EC-Naprosyn] 500 mg PO DAILY 09/09/17 09/09/17 Review of Systems - Review of Systems Constitutional: Fatigue Eyes: Normal ENT: Normal Respiratory: Normal Cardiovascular: Normal Gastrointestinal: Diarrhea, Nausea. absent: Abdominal Pain, Vomiting Genitourinary Female: Normal Musculoskeletal: Other (hip pain; neck pain, face pain) Skin: Other (ecchymosis) Neurological: Headache, Other (weakness/fatigue). absent: Dizziness Endocrine: Normal Hemo/Lymphatic: Normal Psychiatric: Normal Physical Exam - Physical Exam Narrative Physical Exam (Text): 02/23/18 13:32 General: alert/awake, GCS = 15, oriented x 2 (not to date/time), resting in bed , uncomfortable, cooperative, interactive; NAD; slow to respond Head: NC, faint ecchymosis noted to left temporal region, NON-tender, no gross deformities, no depressions/open wounds noted EYE: PERRLA, EOMI, sclera anicteric, no nystagmus, no photophobia; visual field intact b/l Facial: left periorbital faint ecchymosis, mild left zygomatic region ecchymosis , NO focal tenderness noted on exam, no fluctuance/induration/open sores noted on exam Oral: uvula/tongue are midline, no exudate/lesions, no drooling/stridor, no dysphonia; poor dentitions; mild dry oral mucosa NECK: intact ROM, no midline tenderness, no nuchal rigidity, no meningeal signs ; no step off; mild left mid-lower paracervical tenderness, no gross deformities Chest: CTA b/l, no w/r/r; no tachypenia, no accessory muscle use noted Chest Wall: no focal tenderness, no gross deformities, no crepitus, no lesions/ rashes noted Cardiac: +S1, +S2, no m/r/r, no tachycardia Abdominal: +BS, soft/nd/nt, well nourished patient; no masses/rebound/guarding/ rigidity; no steele's sign, no mcburney's point tenderness Extremities: decr ROM to right shoulder (chronic, due to pain); decr ROM to left arm (weakness) and decr ROM to b/l lower ext, strength 4+/5 grossly intact in all limbs, neurovasc intact b/l; NOT ambulatory; reflex +1/2; no gross pitting edema/swelling noted b/l lower ext BACK: no step off, no midline tenderness, NO crepitus, no gross deformities noted; Intact ROM SKIN: cap refill ~ 1 sec, no ulcerations, no petechiae, no rashes; no gross pallor NEURO: CNII-XII WNL, no facial asymmetries, no slurr speech, oriented x 2 (not to date/time) Psych: normal insight, flat affect; follows command Vital Signs Reviewed: Yes Vital Signs Temp Pulse Resp BP Pulse Ox 02/23/18 17:17 98 H 16 129/57 L 96 02/23/18 15:00 88 16 107/58 L 97 02/23/18 13:00 97.6 F 89 17 113/53 L 98 Temperature: Afebrile Blood Pressure: Hypotensive Pulse: Regular Respiratory Rate: Normal Appearance: Positive for: Well-Appearing, Non-Toxic, Uncomfortable. No: Comfortable, Ill-Appearing Pain Distress: None Mental Status: Positive for: other (alert/awake, oriented x 2 (not to date/time) ) - Systems Exam Head: Present: Normocephalic, Ecchymosis Pupils: Present: PERRL Medical Decision Making ED Course and Treatment: 02/23/18 13:25 Impression: fall, AMS, fatigue/slowing; left face/neck pain i have consider all the differential diagnosis regarding pt's chief medical complaints/clinical findings, including but are not limited to: fall, AMS, fatigue/weakness, facial trauma/injury A/P: fall, AMS, fatigue, left face/neck pain - labs - iv - xray - ct - supportive care - observe/reevaluation 02/23/18 15:20 pt is currently comfortable pt is not in any distress pt is awaiting CT/xray results, lab results daughter has left pt to do errands 02/23/18 16:[address] Gastelum, pt's PCP, made aware of pt's medical complaints, Emergency department mgt/txt/dx, agrees with admission; will continue to monitor patient in the hospital 1645 pt/family are made aware of pt's medical results agrees with admission pt is appearing more comfortable, and more responsive Re-evaluation Time: 15:21 - Critical Care Critical Care Minutes: 30 minutes Critical Care Time: Excluding Proc Time Narrative Critical Care (Text): 02/23/18 16:38 critical care time: 30min, excluding procedure time, excluding time teaching residents/students/mid-level providers; including initial eval/diagnosis, diagnostic interpretation, re-eval, consultations, final disposition - Lab Interpretations Lab Results: 02/23/18 14:00 02/23/18 14:00 Lab Results 02/23/18 14:30: Urine Color Yellow, Urine Appearance Clear, Urine pH 6.0, Ur Specific [place] 1.025, Urine Protein 100 H, Urine Glucose (UA) Negative, Urine Ketones Negative, Urine Blood Moderate H, Urine Nitrate Negative, Urine Bilirubin Negative, Urine Urobilinogen 0.2, Ur Leukocyte Esterase Moderate H, Urine RBC 20 - 25, Urine WBC 25 - 30, Ur Epithelial Cells 4 - 5, Amorphous Sediment Few, Urine Bacteria Large, Urine Other Uyeast 02/23/18 14:00: Sodium 133, Potassium 4.8, Chloride 98, Carbon Dioxide 19 L, Anion Gap 21 H, BUN 94 H, Creatinine 2.8 H, Est GFR ( Amer) 20, Est GFR ( Non-Af Amer) 16, Random Glucose 84, Calcium 9.1, Total Bilirubin 1.5 H, AST 76 H D, ALT 21, Alkaline Phosphatase 104, Total Creatine Kinase 837 H, CK-MB (CK-2 ) 27.8 H, CK-MB (CK-2) % 3.3 H, Troponin I 0.02 D, Total Protein 6.5, Albumin 3.5, Globulin 3.0, Albumin/Globulin Ratio 1.2 02/23/18 14:00: PT 12.1, INR 1.06, APTT 26.7 02/23/18 14:00: WBC 9.9 D, RBC 3.74, Hgb 10.7 L D, Hct 31.2 L, MCV 83.4 D, MCH 28.6, MCHC 34.3, RDW 15.5 H, Plt Count 273, MPV 10.0, Gran % 84.8 H, Lymph % (Auto) 8.2 L, [place] % (Auto) 6.3 H, Eos % (Auto) 0.4 L, Baso % (Auto) 0.3, Gran # 8.42 H, Lymph # (Auto) 0.8 L, [place] # (Auto) 0.6, Eos # (Auto) 0.0, Baso # (Auto) 0.03 I have reviewed the lab results: Yes Interpretation: Abnormal lab values (elevated BUN/creat, elevated CK, ABNL UA) - RAD Interpretation Narrative RAD Interpretations (Text): 02/23/18 15:21 CT HEAD WITHOUT CONTRAST. HISTORY: Status post fall twice 2 days ago, now pain/headche COMPARISON: Comparison made with CT scan brain 09/09/2017. FINDINGS: HEMORRHAGE: No acute parenchymal, subarachnoid or extra-axial hemorrhage. BRAIN: Mild chronic periventricular white matter ischemic changes again noted. Additionally, there may also be a few tiny chronic appearing bilateral basal nuclei lacunar type infarcts. No evidence of large acute infarct. Mild generalized volume loss. Mild vascular calcifications both carotid siphons and vertebral arteries. VENTRICLES: No obstructive hydrocephalus. CALVARIUM: Visualized calvarium appears intact however note that the superior most aspect of the parietal calvarium has been excluded from the film. Clinical correlation recommended to determine whether additional imaging necessary. PARANASAL SINUSES: Unremarkable as visualized. No significant inflammatory changes. MASTOID AIR CELLS: Unremarkable as visualized. No inflammatory changes. OTHER FINDINGS: Changes of bilateral cataract surgery again noted. IMPRESSION: No acute intracranial hemorrhage. Mild chronic white matter ischemic changes. Mild generalized volume loss. Note that the superior most aspect of the parietal calvarium at the vertex has been excluded from this study. The these images at the vertex could be repeated if clinically indicated. No fracture is seen throughout the remaining calvarium. Findings discussed with Dr. Diaz at approximately 3:15 p.m. with written down and read back verification. 02/23/18 15:55 CT Maxillofacial: Creator : Elmer Faust MD FINDINGS: NASAL BONES: Nasal bones appear intact. . There is a left-sided nasal septal bone spur. ORBITS: Bony orbits appear intact. . Bilateral ocular prostheses. PARANASAL SINUSES/ MASTOIDS: Minor focal mucosal thickening right and left chambers of the sphenoid sinus. Additionally, there appear to be aerosolized diffuse mucosal inflammatory changes left chamber sphenoid sinus. . Minimal mucosal thickening also noted in the left maxillary antrum. . . MAXILLA: No obvious maxillary fracture seen. MANDIBLE/ TEMPOROMANDIBULAR JOINTS: Mandible appears intact. Mandibular condyles appropriately located. SKULL BASE: Unremarkable. TEMPORAL BONES: Middle ears and mastoid grossly unremarkable. OTHER FINDINGS: There may be some mild left premaxillary soft tissue swelling extends over the zygoma and zygomatic arch. IMPRESSION: No evidence of acute maxillofacial skeletal fracture. There does appear to be some minimal left facial soft tissue swelling. 02/23/18 16:05 Humerus x-ray: Creator : Elmer Faust MD FINDINGS: BONES: No evidence of acute displaced fracture nor dislocation. . Significant degenerative osteoarthritis right glenohumeral joint. Minor degenerative osteoarthritis right acromioclavicular joint. SOFT TISSUES: Normal. OTHER FINDINGS: None. IMPRESSION: No evidence of acute displaced fracture nor dislocation. Significant degenerative osteoarthritis right glenohumeral joint with minor degenerative osteoarthritis right acromioclavicular joint. CT Cervical Spine without contrast FINDINGS: VERTEBRAE: No acute compression fractures no retropulsed fragments. Vertebral bodies exhibit normal stature. Vertebral bodies and facets normally aligned. Note made of what appears to represent fusion changes of the right and near complete fusion of the left posterior elements of C3 and C4 vertebral body segments. DISCS/SPINAL CANAL/NEURAL FORAMINA: Multilevel degenerative spondylosis of the cervical spine. At the C2-C3 level, there is minor posterior disc space narrowing. Small osteophytic ridge disc complex on contiguous with slightly hypertrophic uncovertebral joints. Left facet joint is quite hypertrophic. Central canal exit foramina appear adequate. At the C3-C4 level, there is disc space narrowing with intradiscal calcification. Small central disc ridge complex minimally indents the ventral surface of the thecal sac. The overall central canal appears adequate. Facets are overgrown not withstanding the aforementioned effusion. Right exit foramen marginal to minimally narrowed. Left exit foramen is marginal to adequate. At the C4-C5 level, there is disc space narrowing with a subchondral sclerosis and cystic endplate changes. Small asymmetric ridge disc complex larger on the right than left and contiguous with hypertrophic uncovertebral joints right greater than left. Facets are hypertrophic. The changes result in mild canal narrowing with bilateral foraminal stenosis right greater than left. At the C5- C6 level, there is disc space narrowing with subchondral eburnation and cystic changes. Small broad-based ridge disc complex also contiguous with hypertrophic uncovertebral joints. Facets are hypertrophic. Central canal is mildly narrowed with mild flattening of the ventral surface spinal cord. The. Exit foramina stenotic. Disc space narrowing with subchondral cystic changes and small ridge disc complex also contiguous with hypertrophic uncovertebral joints. The changes result in mild canal narrowing and suspected minor flattening the ventral surface cord. Exit foramina stenotic bilaterally. PARASPINAL SOFT TISSUES: Unremarkable. OTHER FINDINGS: Note made of centrilobular emphysematous changes both lung apices. Biapical pleural thickening. IMPRESSION: No acute fractures. Multilevel degenerative spondylosis as detailed above. prelim: LEFT Elbow: NAD, no fx/dislocation noted b/l hip/pelvis xray: DJD/osteopenic, NO acute fx/dislocation noted 02/23/18 17:10 Left elbow x-ray: Creator : Elmer Faust MD FINDINGS: BONES: No evidence of acute displaced fracture nor dislocation. The osseous structures appear intact. JOINTS: Normal. No osteoarthritis. SOFT TISSUES: Normal. JOINT EFFUSION: None. OTHER FINDINGS: None IMPRESSION: No evidence acute displaced fracture 02/23/18 17:15 Hip/Pelvis x-ray: Creator : Elmer Faust MD FINDINGS: No evidence of acute displaced fracture nor dislocation. The osseous structures appear intact. Significant degenerative osteoarthritis left hip. Mild degenerative changes right hip. Minor sclerosis both SI joints. Note made of endovascular stents within the right and left iliac arteries. IMPRESSION: No acute fractures. Moderate to significant degenerative osteoarthritis left hip. . Mild degenerative osteoarthritis right hip Radiology Orders: 02/23/18 13:24 HEAD W/O CONTRAST [CT] Stat 02/23/18 13:25 CERVICAL SPINE W/O CONTRAST [CT] Stat 02/23/18 13:26 Hip Bilateral [HIP MIN 5V W/ PELVIS CALDERON] [RAD] Stat 02/23/18 13:27 ELBOW LEFT 3 VIEWS ROUTINE [RAD] Stat HUMERUS RIGHT [RAD] Stat 02/23/18 13:28 MAXILLOFACIAL W/O CONTRAST [CT] Stat It Admin: Radiologist - EKG Interpretation EKG Interpretation (Text): 02/23/18 15:22 NSR at 95 bpm, normal axis, no ectopy, inverted T in leads V1-2, no st changes, RBBB, ABNL EKG; unchanged compare with old ekg 08/2017 Interpreted by ED Physician: Yes Type: 12 lead EKG Comparison: Similar to previous EKG - Medication Orders Current Medication Orders: Sodium Chloride (Sodium Chloride 0.9%) 1,000 mls @ 100 mls/hr IV .Q10H STA Stop: 02/23/18 23:23 Last Admin: 02/23/18 15:57 Dose: 100 mls/hr eMAR Start Stop Document 02/23/18 15:57 JOSE (Rec: 02/23/18 15:58 [facility] [id number][facility] Intravenous Solution Start Date 02/23/18 Start Time 15:58 Discontinued Medications Aspirin (Aspirin) 325 mg PO STAT STA Stop: 02/23/18 16:44 Last Admin: 02/23/18 16:56 Dose: 325 mg Sodium Chloride (Sodium Chloride 0.9%) 500 mls @ 999 mls/hr IV .Q31M STA Stop: 02/23/18 14:01 Last Admin: 02/23/18 14:00 Dose: 999 mls/hr eMAR Start Stop Document 02/23/18 14:00 JOSE (Rec: 02/23/18 14:01 [facility] [id number]) Intravenous Solution Start Date 02/23/18 Start Time 14:00 End Date 02/23/18 End time 14:30 Total Infusion Time 30 Levofloxacin/Dextrose (Levaquin 500mg) 500 mg in 100 mls @ 100 mls/hr IVPB STAT STA PRN Reason: Protocol Stop: 02/23/18 16:15 Last Admin: 02/23/18 15:58 Dose: 100 mls/hr eMAR Start Stop Document 02/23/18 15:58 JOSE (Rec: 02/23/18 15:59 [facility] [id number]) Intravenous Solution Start Date 02/23/18 Start Time 15:59 End Date 02/23/18 End time 16:59 Total Infusion Time 60 Sodium Chloride (Sodium Chloride 0.9%) 500 mls @ 999 mls/hr IV .Q31M STA Stop: 02/23/18 17:14 Last Admin: 02/23/18 16:57 Dose: 999 mls/hr eMAR Start Stop Document 02/23/18 16:57 JOSE (Rec: 02/23/18 16:57 [id number] Intravenous Solution Start Date 02/23/18 Start Time 16:57 End Date 02/23/18 End time 17:30 Total Infusion Time 33 Morphine Sulfate (Morphine) 4 mg IVP STAT STA Stop: 02/23/18 13:25 Last Admin: 02/23/18 14:01 Dose: 4 mg MAR Pain Assessment Document 02/23/18 14:01 JOSE (Rec: 02/23/18 14:01 [facility] [id number]) Pain Reassessment Is this a pain reassessment? Yes Presence of Pain Presence of Pain Yes Pain Scale Used Pain Scale Used Numeric Location Pain Location Body Wares Sorter Description Description Constant Intensity of Pain at present 4 IVP Administration Document 02/23/18 14:01 JOSE (Rec: 02/23/18 14:01 [facility] [id number]) Charges for Administration # of IVP Administrations 1 Re-Assess: MAR Pain Assessment Document 02/23/18 15:01 MMA (Rec: 02/23/18 18:12 MMA [id number]) Pain Reassessment Is this a pain reassessment? Yes Sleep Is patient sleeping during reassessment? No Presence of Pain Presence of Pain Yes Pain Scale Used Pain Scale Used Numeric Location Left, Right or Bilateral Right Upper or Lower Upper Pain Location Body Site Abdomen Description Description Constant Intensity of Pain at present 8 Tetanus/Reduced Diphtheria/Acell Pertussis (Boostrix Vaccine Inj) 0.5 ml IM .ONCE ONE Stop: 02/23/18 13:30 Last Admin: 02/23/18 14:01 Dose: 0.5 ml Immunization Registry Document 02/23/18 14:01 JOSE (Rec: 02/23/18 14:01 [facility] [id number]) Immunization Registry Consent Date 09/09/17 Disposition/Present on Arrival - Present on Arrival Any Indicators Present on Arrival: No History of DVT/PE: No History of Uncontrolled Diabetes: No Urinary Catheter: No History of Decub. Ulcer: No History Surgical Site Infection Following: None - Disposition Have Diagnosis and Disposition been Completed?: Yes Diagnosis: Syncope and collapse, Fall, Headache, Facial contusion, Closed head injury, Musculoskeletal pain, Diarrhea, Dehydration, Altered mental status, unspecified , Acute renal insufficiency, UTI (urinary tract infection) Disposition: HOSPITALIZED Disposition Time: 16:30 Patient Plan: Admission, Telemetry Patient Problems: Current Active Problems Problem Status Onset Syncope and collapse Acute Fall Acute Headache Acute Facial contusion Acute Closed head injury Acute Musculoskeletal pain Acute Diarrhea Acute Dehydration Acute Altered mental status, unspecified Acute Acute renal insufficiency Acute Condition: STABLE
[2018-02-23 14:26] LABS: BASO # 0.03 K/mm3 (0.0-2.0); BASO % 0.3 % (0.0-3.0); EOS % 0.4 % (1.5-5.0); GRAN # 8.42 (1.4-6.5); GRAN % 84.8 % (50.0-68.0); HEMOGLOBIN 10.7 g/dL (12.0-16.0); LYMPH # 0.8 (1.2-3.4); LYMPH % 8.2 % (22.0-35.0); MEAN CELL VOLUME 83.4 fl (80.0-105.0); MEAN CORPUSCULAR HEMOGLOBIN 28.6 pg (25.0-35.0); MEAN CORPUSCULAR HGB CONC 34.3 g/dl (31.0-37.0); MONO # 0.6 (0.1-0.6); MONO % 6.3 % (1.0-6.0); RBC 3.74 10^6/uL (3.5-6.1); RED CELL DISTRIBUTION WIDTH 15.5 % (11.5-14.5); WHITE BLOOD COUNT 9.9 10^3/ul (4.5-11.0)
[2018-02-23 14:36] LABS: INR 1.06 (0.93-1.08); PARTIAL THROMBOPLASTIN TIME 26.7 Seconds (25.1-36.5); PROTHROMBIN TIME 12.1 SECONDS (9.4-12.5)
[2018-02-23 15:07] LABS: URINE BILIRUBIN NEGATIVE (NEGATIVE); URINE BLOOD MODERATE (NEGATIVE); URINE GLUCOSE (UA) NEGATIVE (NEGATIVE); URINE LEUKOCYTE ESTERASE MODERATE Leu/uL (NEGATIVE); URINE PROTEIN 100 mg/dL (<30 mg/dL); URINE UROBILINOGEN 0.2 E.U./dL (<1 E.U./dL)
[2018-02-23 15:08] LABS: URINE APPEARANCE CLEAR (CLEAR); URINE COLOR YELLOW (YELLOW)
[2018-02-23] MEDS ORDERED: levoFLOXacin 500 mg in D5W 500 MG/100 ML BAG IVPB STA (15:16)
--- NOTE | 2018-02-23 15:18 | CT ---
PROCEDURE: CT HEAD WITHOUT CONTRAST. HISTORY: Status post fall twice 2 days ago, now pain/headche COMPARISON: Comparison made with CT scan brain 09/09/2017. TECHNIQUE: Axial computed tomography images were obtained through the head/brain without intravenous contrast. Radiation dose: Total exam DLP = 782.47 mGy-cm. This CT exam was performed using one or more of the following dose reduction techniques: Automated exposure control, adjustment of the mA and/or kV according to patient size, and/or use of iterative reconstruction technique. . FINDINGS: HEMORRHAGE: No acute parenchymal, subarachnoid or extra-axial hemorrhage. BRAIN: Mild chronic periventricular white matter ischemic changes again noted. Additionally, there may also be a few tiny chronic appearing bilateral basal nuclei lacunar type infarcts. No evidence of large acute infarct. . Mild generalized volume loss. Mild vascular calcifications both carotid siphons and vertebral arteries. VENTRICLES: No obstructive hydrocephalus. CALVARIUM: Visualized calvarium appears intact however note that the superior most aspect of the parietal calvarium has been excluded from the film. Clinical correlation recommended to determine whether additional imaging necessary. PARANASAL SINUSES: Unremarkable as visualized. No significant inflammatory changes. MASTOID AIR CELLS: Unremarkable as visualized. No inflammatory changes. OTHER FINDINGS: Changes of bilateral cataract surgery again noted. IMPRESSION: No acute intracranial hemorrhage. Mild chronic white matter ischemic changes. . Mild generalized volume loss. Note that the superior most aspect of the parietal calvarium at the vertex has been excluded from this study. The these images at the vertex could be repeated if clinically indicated. No fracture is seen throughout the remaining calvarium. Findings discussed with Dr. Diaz at approximately 3:15 p.m. with written down and read back verification.
[2018-02-23 15:29] LABS: URINE RBC 20 - 25 /hpf (0-2); URINE WBC 25 - 30 /hpf (0-6)
[2018-02-23 15:30] LABS: URINE AMORPHOUS SEDIMENT FEW; URINE BACTERIA LARGE (NEG)
[2018-02-23 15:44] LABS: ALB/GLOB RATIO 1.2 (1.1-1.8); ALBUMIN 3.5 g/dL (3.0-4.8); CALCIUM 9.1 mg/dL (8.4-10.5)
[2018-02-23 15:45] LABS: TROPONIN I 0.02 ng/mL
[2018-02-23 15:46] LABS: CK MB% 3.3 % (2.5-3.0); CK-MB 27.8 ng/mL (0.0-3.6)
--- NOTE | 2018-02-23 15:52 | CT ---
PROCEDURE: CT MAXILLOFACIAL BONES WITHOUT CONTRAST HISTORY: Left facial pain following trauma COMPARISON: Comparison made with concurrent CT scan brain. TECHNIQUE: Contiguous axial CT images of the maxillofacial bones were obtained. Coronal and sagittal reformats were generated. Radiation dose: Total exam DLP = mGy-cm. This CT exam was performed using one or more of the following dose reduction techniques: Automated exposure control, adjustment of the mA and/or kV according to patient size, and/or use of iterative reconstruction technique. FINDINGS: NASAL BONES: Nasal bones appear intact. . There is a left-sided nasal septal bone spur. ORBITS: Bony orbits appear intact. . Bilateral ocular prostheses. PARANASAL SINUSES/ MASTOIDS: Minor focal mucosal thickening right and left chambers of the sphenoid sinus. Additionally, there appear to be aerosolized diffuse mucosal inflammatory changes left chamber sphenoid sinus. . Minimal mucosal thickening also noted in the left maxillary antrum. . . MAXILLA: No obvious maxillary fracture seen. MANDIBLE/ TEMPOROMANDIBULAR JOINTS: Mandible appears intact. Mandibular condyles appropriately located. SKULL BASE: Unremarkable. TEMPORAL BONES: Middle ears and mastoid grossly unremarkable. OTHER FINDINGS: There may be some mild left premaxillary soft tissue swelling extends over the zygoma and zygomatic arch. IMPRESSION: No evidence of acute maxillofacial skeletal fracture. There does appear to be some minimal left facial soft tissue swelling.
--- NOTE | 2018-02-23 16:04 | RAD ---
PROCEDURE: Radiographs of the right humerus. HISTORY: right arm pain COMPARISON: None. FINDINGS: BONES: No evidence of acute displaced fracture nor dislocation. . Significant degenerative osteoarthritis right glenohumeral joint. Minor degenerative osteoarthritis right acromioclavicular joint. SOFT TISSUES: Normal. OTHER FINDINGS: None. IMPRESSION: No evidence of acute displaced fracture nor dislocation. Significant degenerative osteoarthritis right glenohumeral joint with minor degenerative osteoarthritis right acromioclavicular joint.
--- NOTE | 2018-02-23 16:32 | CT ---
PROCEDURE: CT Cervical Spine without contrast HISTORY: Status post fall left neck pain COMPARISON: No prior study available comparison TECHNIQUE: Axial computed tomography images were obtained of the cervical spine without the use of intravenous contrast. Coronal and sagittal reformatted images were created and reviewed. Radiation dose: Total exam DLP = 264.41 mGy-cm. This CT exam was performed using one or more of the following dose reduction techniques: Automated exposure control, adjustment of the mA and/or kV according to patient size, and/or use of iterative reconstruction technique. FINDINGS: VERTEBRAE: No acute compression fractures no retropulsed fragments. Vertebral bodies exhibit normal stature. Vertebral bodies and facets normally aligned. Note made of what appears to represent fusion changes of the right and near complete fusion of the left posterior elements of C3 and C4 vertebral body segments. DISCS/SPINAL CANAL/NEURAL FORAMINA: Multilevel degenerative spondylosis of the cervical spine. At the C2-C3 level, there is minor posterior disc space narrowing. Small osteophytic ridge disc complex on contiguous with slightly hypertrophic uncovertebral joints. Left facet joint is quite hypertrophic. Central canal exit foramina appear adequate. At the C3-C4 level, there is disc space narrowing with intradiscal calcification. Small central disc ridge complex minimally indents the ventral surface of the thecal sac. The overall central canal appears adequate. Facets are overgrown not withstanding the aforementioned effusion. Right exit foramen marginal to minimally narrowed. Left exit foramen is marginal to adequate. At the C4-C5 level, there is disc space narrowing with a subchondral sclerosis and cystic endplate changes. Small asymmetric ridge disc complex larger on the right than left and contiguous with hypertrophic uncovertebral joints right greater than left. Facets are hypertrophic. The changes result in mild canal narrowing with bilateral foraminal stenosis right greater than left. At the C5-C6 level, there is disc space narrowing with subchondral eburnation and cystic changes. Small broad-based ridge disc complex also contiguous with hypertrophic uncovertebral joints. Facets are hypertrophic. Central canal is mildly narrowed with mild flattening of the ventral surface spinal cord. The. Exit foramina stenotic. Disc space narrowing with subchondral cystic changes and small ridge disc complex also contiguous with hypertrophic uncovertebral joints. The changes result in mild canal narrowing and suspected minor flattening the ventral surface cord. Exit foramina stenotic bilaterally. PARASPINAL SOFT TISSUES: Unremarkable. OTHER FINDINGS: Note made of centrilobular emphysematous changes both lung apices. Biapical pleural thickening. IMPRESSION: No acute fractures. Multilevel degenerative spondylosis as detailed above.
--- NOTE | 2018-02-23 16:55 | RAD ---
PROCEDURE: Pelvis and both hips. HISTORY: Status post fall with bilateral hip pain. Rule out fracture. COMPARISON: Comparison made with prior radiographs of the pelvis and left hip dated 03/03/2017 TECHNIQUE: AP view of the pelvis and AP/ frogleg lateral views of the right and left hips performed FINDINGS: No evidence of acute displaced fracture nor dislocation. The osseous structures appear intact. Significant degenerative osteoarthritis left hip. Mild degenerative changes right hip. Minor sclerosis both SI joints. Note made of endovascular stents within the right and left iliac arteries. IMPRESSION: No acute fractures. Moderate to significant degenerative osteoarthritis left hip. . Mild degenerative osteoarthritis right hip
--- NOTE | 2018-02-23 17:11 | RAD ---
PROCEDURE: Left elbow dated 02/23/2018. HISTORY: COMPARISON: No prior. FINDINGS: BONES: No evidence of acute displaced fracture nor dislocation. The osseous structures appear intact. JOINTS: Normal. No osteoarthritis. SOFT TISSUES: Normal. JOINT EFFUSION: None. OTHER FINDINGS: None IMPRESSION: No evidence acute displaced fracture
--- NOTE | 2018-02-23 18:53 | CARD ---
APPROVED REPORT EKG Measurement Heart [id number] <Conclusion> Normal sinus rhythm Right bundle branch block Abnormal ECG
[2018-02-23] MEDS ORDERED: Oxycodone/Acetaminophen 5/325 mg Tab PO STA (19:08)
[2018-02-23 20:59] VITALS: BMI 20.1
[2018-02-23] MEDS ORDERED: Pneumococcal 23-Valent Vaccine IM ONE (20:59)
[2018-02-24 09:31] LABS: ALBUMIN 2.9 g/dL (3.0-4.8); CALCIUM 8.2 mg/dL (8.4-10.5)
[2018-02-24 09:38] LABS: CK MB% 2.4 % (2.5-3.0); CK-MB 17.2 ng/mL (0.0-3.6)
--- NOTE | 2018-02-24 10:19 | HP ---
HISTORY OF PRESENT ILLNESS: An 82-year-old white female status post multiple falls at home, was found lying on the floor for multiple hours, came to the hospital, had x-rays done which were negative. The patient was found to be in acute renal failure with rhabdomyolysis with elevated CPK, BUN and creatinine of 94 and 2.8, potassium of 4.8. Hemoglobin 10.7. She is afebrile. Vital signs are stable. Physical examination shows a well-developed but thin white female, awake and alert but upset about multiple falls, not being able to stop herself from falling. The patient has a large ecchymosis on the left side of her face. She also has a large ecchymosis on the right upper extremity. She has difficulty moving her right upper extremity, but her strength is normal but she has severe pain. There are no focal lateralizing deficits. She has strength in both lower extremities and upper extremities. There is no facial asymmetry. Babinski's are downgoing bilaterally. Chest is clear to auscultation and percussion. Heart examination, regular sinus rhythm. Carotids are without bruits. IMPRESSION: 1. Acute renal failure. 2. Acute rhabdomyolysis. 3. Multiple falls. 4. Head trauma. 5. Right upper extremity trauma. 6. Unexplained falls without syncope. Ulysses Gastelum MD
[2018-02-24] MEDS: levoFLOXacin 500 mg in D5W 500 MG/100 ML BAG IVPB SCH (10:37)
[2018-02-24] MEDS: Sodium Chloride 0.9% 100 ML IV SCH (10:40)
--- NOTE | 2018-02-24 11:45 | US ---
PROCEDURE: Ultrasound of the Kidneys HISTORY: Acute renal failure. COMPARISON: 01/15/2014 renal ultrasound. TECHNIQUE: Sonogram of the kidneys. FINDINGS: RIGHT KIDNEY: Measures: 5.1 x 11.4 cm. Normal in size, contour and echogenicity. No stone, solid mass lesion or hydronephrosis visualized. LEFT KIDNEY: Measures: 4.7 x 10.6 cm. Normal in size, contour and echogenicity. No stone, solid mass lesion or hydronephrosis visualized. Simple cyst lower pole 2.4 x 2.6 cm. OTHER FINDINGS: None. IMPRESSION: No significant or acute findings to account for/ related to the clinical presentation. No significant interval change compared to the prior examination(s).
[2018-02-24] MEDS: Oxycodone/Acetaminophen 5/325 mg Tab PO PRN ×2 (15:21→23:41)
--- NOTE | 2018-02-24 19:39 | CON ---
DATE: 02/24/2018 REASON FOR CONSULTATION: Acute kidney injury, dehydration, and hyponatremia. HISTORY OF PRESENT ILLNESS: An 82-year-old lady previously unknown to me, was admitted yesterday after a fall at home. The patient is lethargic. She is a poor historian. At this time, she reports that she fell at home. She also admits to having diarrhea for three days prior to presentation. She complains of some pain. She denies any chest tightness. As per the PMD's history, the patient was found at home, lying on the floor. She was on the floor for multiple hours. At the time of presentation, she was found to be confused, lethargic. Initial evaluation in the emergency room was she was supposed to have acute rhabdomyolysis, elevated CPK, acute kidney injury, BUN of 94 and a creatinine of 2.8. Currently, she is sitting in bed. She appears comfortable. She does not appear to be in any kind of distress. She has ecchymosis around her left eye. PAST MEDICAL AND SURGICAL HISTORY: Hypertension, heart disease, history of cataracts, history of deafness, hypothyroidism. FAMILY HISTORY: Noncontributory. SOCIAL HISTORY: Lives alone, but daughter lives upstairs. No history of smoking, alcohol use, no IV drug abuse. ALLERGIES: PENICILLIN. MEDICATIONS AT HOME: List reviewed. REVIEW OF SYSTEMS: Incomplete because the patient is unable to cooperate fully with systems review. PHYSICAL EXAMINATION GENERAL: Elderly lady lying in bed. VITAL SIGNS: Blood pressure 128/68, heart rate 84, respiratory rate 20, temperature 98.3. HEENT: Normocephalic, atraumatic, positive pallor. NECK: Supple, no JVD. LUNGS: Bilateral equal air entry, bilateral equal expansion, no rales, no rhonchi. CARDIAC: S1 and S2, regular rate and rhythm, no murmur, no rub. ABDOMEN: Soft, nondistended, nontender, bowel sounds present. EXTREMITIES: No lower extremity edema. INTAKE AND OUTPUT: Not charted. LABORATORY DATA: WBC 9.9, hemoglobin 10.7, hematocrit 31, platelets 273. Sodium 136, potassium 4.2, chloride 106, CO2 of 18, BUN 74, creatinine 1.7, glucose 81, calcium 8.2, total bilirubin 2.1, AST 90, ALT 41, albumin 2.9, corrected calcium is 8.9. Urinalysis; yellow, clear, pH 6, specific gravity 1.025, protein 100, glucose negative, moderate blood, moderate leukocyte esterase, rbc's 20-25, wbc's 20-25. CPK is 727, it was 837 yesterday. Urine culture, gram-negative elzbieta. CURRENT MEDICATIONS: Levaquin 500, oxycodone, normal saline at 125. ASSESSMENT: 1. Acute kidney injury, baseline creatinine of 0.9 in August of this year. 2. Acute rhabdomyolysis. 3. Status post multiple falls at home. 4. History of hypertension. 5. Mild hypocalcemia. 6. Hyperbilirubinemia. 7. Anemia. PLAN: 1. Continue IV fluids, continue normal saline. 2. Monitor urine output. 3. Monitor CPK. 4. Monitor H and H. 5. Check iron stores. 6. Continue antibiotics for UTI. 7. Avoid nephrotoxins. Thank you for the courtesy of this consultation. We will follow this patient with you. Rachelle Gutiérrez MD
--- NOTE | 2018-02-25 09:01 | PN ---
DATE: 02/25/2017 SUBJECTIVE: An 82-year-old white female, status post syncopal episode, rhabdomyolysis, acute renal failure. The patient is recovering. BUN and creatinine are dropping. She still has severe pain in the right upper extremity and the left face, temporomaxillary area. The patient is awake, alert and oriented x3. She physical therapy and occupational therapy. Plan is continue to hydrate and follow her kidney function. Kidney and renal ultrasound was negative. Plan is to ambulate, evaluate for syncope and continue to follow the kidney function. Ulysses Gastelum MD
[2018-02-25] MEDS: Sodium Chloride 0.9% 100 ML IV SCH ×2 (09:55→10:48)
[2018-02-25] MEDS: levoFLOXacin 500 mg in D5W 500 MG/100 ML BAG IVPB SCH (09:59)
[2018-02-25] MEDS: Sodium Chloride 0.9% 1,000 ML IV SCH ×2 (14:29→22:33)
[2018-02-25] MEDS: Oxycodone/Acetaminophen 5/325 mg Tab PO PRN ×2 (16:48→22:32)
[2018-02-26 03:10] VITALS: RESP 20
[2018-02-26] MEDS: Sodium Chloride 0.9% 1,000 ML IV SCH ×3 (08:00→13:53)
[2018-02-26 08:11] VITALS: O2SAT 93
[2018-02-26] MEDS ORDERED: levoFLOXacin 500 mg in D5W 500 MG/100 ML BAG IVPB STA (08:55)
--- NOTE | 2018-02-26 12:21 | PN ---
DATE: 02/26/2018 An 82-year-old white female, status post multiple falls, rhabdomyolysis, acute renal failure. Patient's BUN and creatinine down to 74 and 1.7. She is being hydrated. She is still extremely weak and fatigued. She has had an ecchymosis on the left face and right upper extremity. She will start on physical therapy and occupational therapy. Plan is to continue hydration and follow up of her renal function. Abdomen is soft. Chest is clear to auscultation and percussion. We are awaiting a Holter monitor back because of the recent fall. Ulysses Gastelum MD
[2018-02-26 12:22] LABS: BASO # 0.01 K/mm3 (0.0-2.0); BASO % 0.1 % (0.0-3.0); EOS # 0.2 (0.0-0.7); GRAN # 6.39 (1.4-6.5); GRAN % 73.4 % (50.0-68.0); HEMOGLOBIN 9.5 g/dL (12.0-16.0); LYMPH # 1.2 (1.2-3.4); LYMPH % 13.5 % (22.0-35.0); MEAN CELL VOLUME 82.2 fl (80.0-105.0); MEAN CORPUSCULAR HEMOGLOBIN 27.8 pg (25.0-35.0); MEAN CORPUSCULAR HGB CONC 33.8 g/dl (31.0-37.0); MEAN PLATELET VOLUME 9.3 fl (7.0-11.0); RBC 3.42 10^6/uL (3.5-6.1); RED CELL DISTRIBUTION WIDTH 15.9 % (11.5-14.5); WHITE BLOOD COUNT 8.7 10^3/ul (4.5-11.0)
[2018-02-26 12:36] LABS: BLOOD UREA NITROGEN 22 mg/dL (7-21); CALCIUM 7.8 mg/dL (8.4-10.5); GFR AFRICAN-AMERICAN > 60; GFR NON-AFRICAN AMERICAN > 60
[2018-02-26] MEDS ORDERED: POLYETHYLENE GLYCOL 3350 17 GM/Dose PACKET PO SCH (14:45)
[2018-02-26] MEDS ORDERED: Magnesium Sulfate 1 gm in D5W 1 GM/100 ML BAG IVPB ONE (15:09)
[2018-02-26 16:52] LABS: IRON 22 ug/dL (45-180)
[2018-02-26 17:01] LABS: % IRON SATURATION 10 % (20-55); TOTAL IRON BINDING CAPACITY 219 ug/dL (265-497)
[2018-02-26 17:33] VITALS: BP 153/71; PULSE 89; TEMP 98.3
[2018-02-26] MEDS: Oxycodone/Acetaminophen 5/325 mg Tab PO PRN (17:51)
[2018-02-26] MEDS ORDERED: Potassium & Sodium Phosphate PO SCH (18:00)
--- NOTE | 2018-02-26 19:19 | PN ---
DATE: 02/26/2018 SUBJECTIVE: The patient is seen lying in bed. The patient is awake. She is alert. She is comfortable. She is oriented to time and place and person. She denies any chest tightness, shortness of breath. She complains of being constipated. PHYSICAL EXAMINATION GENERAL: Elderly lady lying in bed. VITAL SIGNS: Blood pressure 150/76, heart rate 89, respiratory rate 20, temperature 97.7. HEENT: Normocephalic, atraumatic, positive pallor. NECK: Supple, no JVD. LUNGS: Bilateral equal air entry, no rales, no rhonchi. CARDIAC: S1 and S2. Regular rate and rhythm. No murmur, no rub. ABDOMEN: Distended, soft, nontender, bowel sounds present. EXTREMITIES: No lower extremity edema. INTAKE AND OUTPUT: 3850/850. LABORATORY DATA: WBC 8.7, hemoglobin 9.5, hematocrit 28, platelets 300. Sodium 138, potassium 3.7, chloride 111, CO2 of 19, BUN 22, creatinine 0.8, glucose 109, calcium 7.8, phosphorus 1.9, magnesium 1.5, total bilirubin 2.1, CPK 727 on 02/24. Urinalysis; pH was 6, specific gravity 1.025 on 02/23. CURRENT MEDICATIONS: Levaquin 250 IV piggyback daily, MiraLax, Percocet and normal saline at 125. ASSESSMENT: 1. Acute kidney injury, resolved, largely prerenal azotemia. 2. Status post fall/syncope. 3. Escherichia coli urinary tract infection. 4. Hypophosphatemia. 5. Hypomagnesemia. 6. Elevated bilirubin. 7. Acute rhabdomyolysis, resolving. PLAN: 1. Check CPK. 2. Replace phosphorus. 3. Discontinue IV fluids. 4. Replace magnesium IV. 5. MiraLax 17 g today and daily p.r.n. for constipation. 6. Physical therapy. 7. Check iron stores. 8. Check stool occults. Rachelle Gutiérrez MD
[2018-02-27] MEDS ORDERED: levoFLOXacin 250 mg in D5W 250 MG/50 ML BAG IVPB SCH (10:00)
--- NOTE | 2018-02-28 08:44 | DS ---
Patient was discharged on 02/26/2018 to TCU at [facility]. Patient was admitted as 82-year-old .white female after an episode of falling, lying on the floor for multiple hours, found to have rhabdomyolysis and acute renal failure, contusion of the left face, and contusion of the right upper extremity. Patient did well and was seen in consultation by Dr. Gutiérrez, was also seen in consultation by Neurology because of the falling. Patient had no further syncope. She started physical therapy occupational therapy with hydration and kidney function started to resolve and returned to normal. FINAL DISCHARGE DIAGNOSES: Syncopal episode, rhabdomyolysis, acute renal failure and coronary artery disease. Ulysses Gastelum MD
== END 2018-02-26 18:42 | DRG 683 ==
LOC: ED 12:53 → ERH 16:31 → 2RNO 18:11
PROVIDERS: ADMIT Internal Medicine; ATTEND Internal Medicine
DX: N17.9 Acute kidney failure, unspecified (principal); M62.82 Rhabdomyolysis; E87.1 Hypo-osmolality and hyponatremia; N39.0 Urinary tract infection, site not specified; R17 Unspecified jaundice; I25.10 Atherosclerotic heart disease of native coronary artery without angina pectoris; S40.021A Contusion of right upper arm, initial encounter; S00.83XA Contusion of other part of head, initial encounter; S00.12XA Contusion of left eyelid and periocular area, initial encounter; E86.0 Dehydration; E03.9 Hypothyroidism, unspecified; E83.42 Hypomagnesemia; I10 Essential (primary) hypertension; M16.11 Unilateral primary osteoarthritis, right hip; M19.011 Primary osteoarthritis, right shoulder; M16.12 Unilateral primary osteoarthritis, left hip; B96.20 Unspecified Escherichia coli [E. coli] as the cause of diseases classified elsewhere; R55 Syncope and collapse; D64.9 Anemia, unspecified; E83.39 Other disorders of phosphorus metabolism; E83.51 Hypocalcemia; H91.90 Unspecified hearing loss, unspecified ear; K59.00 Constipation, unspecified; W19.XXXA Unspecified fall, initial encounter; M47.9 Spondylosis, unspecified; Y92.009 Unspecified place in unspecified non-institutional (private) residence as the place of occurrence of the external cause; Z79.83 Long term (current) use of bisphosphonates

== ENCOUNTER 2018-02-26 18:46 | Inpatient (IN) | payer OTHER, MEDICARE ==
[2018-02-26 18:51] VITALS: BMI 26.3
[2018-02-26] MEDS ORDERED: Oxycodone/Acetaminophen 5/325 mg Tab PO PRN (18:51)
[2018-02-27] MEDS ORDERED: levoFLOXacin 250 mg in D5W 250 MG/50 ML BAG IVPB SCH (06:00)
[2018-02-27 09:29] LABS: BASO # 0.02 K/mm3 (0.0-2.0); BASO % 0.2 % (0.0-3.0); EOS # 0.2 (0.0-0.7); EOS % 1.7 % (1.5-5.0); GRAN # 7.43 (1.4-6.5); GRAN % 74.6 % (50.0-68.0); HEMOGLOBIN 10.3 g/dL (12.0-16.0); LYMPH # 1.4 (1.2-3.4); LYMPH % 13.6 % (22.0-35.0); MEAN CELL VOLUME 81.7 fl (80.0-105.0); MEAN CORPUSCULAR HEMOGLOBIN 27.8 pg (25.0-35.0); MEAN PLATELET VOLUME 9.4 fl (7.0-11.0); MONO % 9.9 % (1.0-6.0); RBC 3.71 10^6/uL (3.5-6.1)
[2018-02-27 09:49] LABS: ALB/GLOB RATIO 0.9 (1.1-1.8); ALBUMIN 2.6 g/dL (3.0-4.8); ALT/SGPT 36 U/L (7-56); AST/SGOT 69 U/L (14-36); BLOOD UREA NITROGEN 16 mg/dL (7-21); GFR AFRICAN-AMERICAN > 60; GFR NON-AFRICAN AMERICAN > 60
[2018-02-27] MEDS: Potassium & Sodium Phosphate PO SCH ×2 (10:07→18:44)
[2018-02-27] MEDS: POLYETHYLENE GLYCOL 3350 17 GM/Dose PACKET PO SCH (10:07)
[2018-02-27] MEDS ORDERED: Potassium Chloride 20 mEq/15 ml LIQ UD PO SCH (18:00)
[2018-02-27] MEDS: Magnesium Oxide 400 mg Tab UD PO SCH (18:48)
--- NOTE | 2018-02-27 19:09 | PN ---
DATE: 02/27/2018 SUBJECTIVE: Patient was transferred to the TCU. She appears to be comfortable sitting in bed. She has had no further falling episodes. MEDICATIONS: Medication list reviewed. Patient is on MiraLax, Neutra-Phos, and Percocet p.r.n. OBJECTIVE: VITAL SIGNS: Blood pressure presently 148/74, temperature 98, respiratory rate 20 with a pulse of 86. HEENT: Exam shows her to be normocephalic, atraumatic. Conjunctivae are pink. Sclerae are muddy. NECK: Supple. No neck vein distention. CHEST: Clear to auscultation and percussion. No rales, rhonchi, or wheezing. CARDIOVASCULAR: Shows regular rate and rhythm without audible murmurs, rubs, or gallops. ABDOMEN: Soft. Bowel sounds normal. No rebound, guarding, or masses. EXTREMITIES: Show no lower extremity cyanosis, clubbing, or edema. LABORATORY DATA AND IMAGING STUDIES: CBC: White blood cell count today 10, hemoglobin 10.3 with a platelet count of 369,000. Chemistries: Sodium 139, potassium is low today at 3.2, chloride is 107, BUN is 16 with a creatinine of 0.7 down from a high of 94 BUN with a creatinine of 2.8. Calcium level is 8 with an albumin level of 2.6, corrects to normal. Last phosphorus level was low at 1.9. Magnesium level was low 1.5. Iron saturations are 10%. Liver enzymes are mildly elevated with a bilirubin of 2.4. Urine showed 2+ protein. Positive red blood cells, positive white blood cells, positive bacteria. Microbiology: Urine cultures were positive for E. coli. ASSESSMENT: Acute renal failure, resolved. Patient's BUN and creatinine are back to baseline levels. E. coli urinary tract infection. Patient was treated with a short course of Levaquin. Mild hypokalemia, hypomagnesemia, and hypophosphatemia. Patient will continue receiving supplements to correct her electrolyte-related issues. Status post multiple falls with an episode of mild acute rhabdomyolysis. This has resolved. Anemia with low iron saturations. Patient will be started on oral iron and IV Venofer therapy. Mild elevation of her liver enzymes with an elevated bilirubin level. Perhaps, GI evaluation and further workup as per Dr. Gastelum. PLAN: 1. Supplement potassium, magnesium, and phosphorus. 2. Oral iron and IV Venofer therapy for her low iron saturation and anemia. 3. Check stool guaiacs. This was ordered on acute care, but not done. 4. Continue to monitor labs until her electrolytes correct. 5. Continue rehabilitation in the TCU. Gilberto Xavier MD
[2018-02-28 06:55] LABS: HEMOGLOBIN 9.1 g/dL (12.0-16.0); MEAN CELL VOLUME 81.7 fl (80.0-105.0); MEAN CORPUSCULAR HEMOGLOBIN 28.2 pg (25.0-35.0); MEAN CORPUSCULAR HGB CONC 34.5 g/dl (31.0-37.0); RBC 3.23 10^6/uL (3.5-6.1); RED CELL DISTRIBUTION WIDTH 16.3 % (11.5-14.5); WHITE BLOOD COUNT 8.2 10^3/ul (4.5-11.0)
[2018-02-28 07:12] LABS: ALB/GLOB RATIO 0.8 (1.1-1.8); ALBUMIN 2.2 g/dL (3.0-4.8); ALT/SGPT 33 U/L (7-56); AST/SGOT 61 U/L (14-36); BLOOD UREA NITROGEN 13 mg/dL (7-21); CALCIUM 7.5 mg/dL (8.4-10.5); GFR AFRICAN-AMERICAN > 60; GFR NON-AFRICAN AMERICAN > 60
[2018-02-28] MEDS ORDERED: Potassium Chloride 20 mEq ER Tab PO ONE (10:00)
--- NOTE | 2018-02-28 11:13 | CP.PCM.HP ---
<Suresh Mosquera - Last Filed: 02/28/18 11:14> History of Present Illness - History of Present Illness History of Present Illness: Medicine note for Dr. Solomon (covering for Dr. Gastelum) - Laith Mosquera PGY3 HPI: Patient is a 82yo female with history of hypertension and dyslipidemia that originally presented to [facility] with report of fall at home. She was noted to have acute kidney injury secondary to rhabdomyolysis. She was treated with IVF hydration and subsequently transferred to the transitional care unit for physical therapy. H&P from original admission was reviewed as well as hospital course. Imaging and labs reviewed. She denied chest pain, palpitations, SOB, abdominal pain, nausea, vomiting, fever, chills. 12point ROS as per above otherwise negative PMH: as stated above Allergies: Penicillin Social Hx: denies tobacco, alcohol and illicit drugs; former smoker Family Hx; Noncontributory Present on Admission - Present on Admission Any Indicators Present on Admission: No Past Patient History - Infectious Disease Hx of Infectious Diseases: None - Tetanus Immunizations Tetanus Immunization: Unknown - Past Social History Smoking Status: Former Smoker - CARDIAC Hx Hypertension: Yes - PULMONARY Hx Respiratory Disorders: No - NEUROLOGICAL Hx Neurological Disorder: Yes Hx Dizziness: Yes - HEENT Hx HEENT Problems: Yes Hx Cataracts: Yes Hx Deafness: Yes (uses b/l hearing aids which are home) Hx Glaucoma: Yes Other/Comment: pt had sx for cataracts and glaucoma and does not need eyeglasses or eye drops as per daughter bhakti - RENAL Hx Chronic Kidney Disease: No - ENDOCRINE/METABOLIC Hx Endocrine Disorders: Yes - HEMATOLOGICAL/ONCOLOGICAL Hx Blood Disorders: No - INTEGUMENTARY Hx Dermatological Problems: Yes Other/Comment: laceration, facial contusion bruising noted left side of face, bruising - MUSCULOSKELETAL/RHEUMATOLOGICAL Hx Falls: Yes - GASTROINTESTINAL Hx Gastrointestinal Disorders: Yes - GENITOURINARY/GYNECOLOGICAL Hx Genitourinary Disorders: No Hx Reproductive Disorders: No - PSYCHIATRIC Hx Substance Use: No - SURGICAL HISTORY Hx Surgeries: Yes Other/Comment: stents in legs - ANESTHESIA Hx Anesthesia: Yes Hx Anesthesia Reactions: No Meds Allergies/Adverse Reactions: Allergies Allergy/AdvReac Type Severity Reaction Status Date / Time Penicillins Allergy Mild ANAPHYLAXIS Verified 02/26/18 21:12 Physical Exam - Constitutional Appears: No Acute Distress - Head Exam Head Exam: ATRAUMATIC, NORMOCEPHALIC - Eye Exam Eye Exam: EOMI Pupil Exam: PERRL - ENT Exam ENT Exam: Mucous Membranes Moist - Neck Exam Neck exam: Positive for: Normal Inspection - Respiratory Exam Respiratory Exam: Clear to Auscultation Bilateral. absent: Rales, Rhonchi, Wheezes - Cardiovascular Exam Cardiovascular Exam: RRR, +S1, +S2. absent: Gallop, JVD, Rubs - GI/Abdominal Exam GI & Abdominal Exam: Normal Bowel Sounds, Soft. absent: Distended, Firm, Guarding, Rebound, Tenderness - Extremities Exam Extremities exam: Positive for: normal inspection. Negative for: pedal edema - Neurological Exam Neurological exam: Alert, CN II-XII Intact, Oriented x3 - Psychiatric Exam Psychiatric exam: Normal Affect, Normal Mood - Skin Skin Exam: Dry, Intact, Normal Color, Warm Results - Vital Signs Recent Vital Signs: Last Vital Signs Temp 98.1 F 02/28/18 06:00 Pulse 83 02/28/18 06:00 Resp 18 02/28/18 06:00 BP 141/62 02/28/18 06:00 Pulse Ox 97 02/28/18 06:00 - Labs Result Diagrams: 02/28/18 06:00 02/28/18 06:00 Labs: Laboratory Results - last 24 hr 02/28/18 02/28/18 06:00 06:00 WBC 8.2 RBC 3.23 L Hgb 9.1 L Hct 26.4 L MCV 81.7 MCH 28.2 MCHC 34.5 RDW 16.3 H Plt Count 347 MPV 9.0 Sodium 136 Potassium 3.3 L Chloride 104 Carbon Dioxide 24 Anion Gap 10 BUN 13 Creatinine 0.7 Est GFR ( Amer) > 60 Est GFR (Non-Af Amer) > 60 Random Glucose 94 Calcium 7.5 L Phosphorus 2.4 L Magnesium 1.4 L Total Bilirubin 1.4 H AST 61 H ALT 33 Alkaline Phosphatase 142 H Total Protein 4.8 L Albumin 2.2 L Globulin 2.6 Albumin/Globulin Ratio 0.8 L Assessment & Plan - Assessment and Plan (Free Text) Plan: 82yo female with history of hypertension and dyslipidemia presents s/p fall at home complicated by acute kidney injury secondary to rhabdo. Presently in the TCU undergoing physical therapy for deconditioning. 1. Deconditioning 2. Hx of Acute kidney injury secondary to rhabdo, resolved 3. Hypertension 4. Dyslipidemia 6. Hypomagnesemia 7. Hypophosphatemia 8. Hypokalemia 9. Iron deficiency anemia -She is presently undergoing physical therapy in the TCU for deconditioning -Her ALEENA secondary to rhabo is presently resolved -Patient is on neutra-phos, potassium chloride and magnesium oxide for correction of electrolyte abnormalities -She is on venofer for anemia per nephrology recommendations -She is on lisinopril for hypertension -She is tolerated her diet without issue -Will continue to monitor her progress in the TCU Patient seen and case discussed/reviewed with attending, Dr. Solomon <Ian Solomon S - Last Filed: 02/28/18 12:07> Results - Vital Signs Recent Vital Signs: Last Vital Signs Temp 98.1 F 02/28/18 06:00 Pulse 83 02/28/18 06:00 Resp 18 02/28/18 06:00 BP 141/62 02/28/18 06:00 Pulse Ox 97 02/28/18 06:00 - Labs Result Diagrams: 02/28/18 06:00 02/28/18 06:00 Labs: Laboratory Results - last 24 hr 02/28/18 02/28/18 06:00 06:00 WBC 8.2 RBC 3.23 L Hgb 9.1 L Hct 26.4 L MCV 81.7 MCH 28.2 MCHC 34.5 RDW 16.3 H Plt Count 347 MPV 9.0 Sodium 136 Potassium 3.3 L Chloride 104 Carbon Dioxide 24 Anion Gap 10 BUN 13 Creatinine 0.7 Est GFR ( Amer) > 60 Est GFR (Non-Af Amer) > 60 Random Glucose 94 Calcium 7.5 L Phosphorus 2.4 L Magnesium 1.4 L Total Bilirubin 1.4 H AST 61 H ALT 33 Alkaline Phosphatase 142 H Total Protein 4.8 L Albumin 2.2 L Globulin 2.6 Albumin/Globulin Ratio 0.8 L Assessment & Plan - Assessment and Plan (Free Text) Plan: Pt seen and examined by me. The labs and medications have been reviewed. I reviewed the note of the medical educator and I agree with it.Pt for rehab.On electrolyte replacement. Continue with PT. On veofer for iron def anemia.
[2018-02-28] MEDS: Potassium Chloride 20 mEq ER Tab PO SCH ×2 (11:41→17:55)
[2018-02-28] MEDS: Magnesium Oxide 400 mg Tab UD PO SCH ×2 (11:41→17:55)
[2018-02-28] MEDS: Potassium & Sodium Phosphate PO SCH ×2 (11:42→17:56)
[2018-02-28] MEDS: POLYETHYLENE GLYCOL 3350 17 GM/Dose PACKET PO SCH (11:42)
--- NOTE | 2018-03-01 00:12 | PN ---
DATE: 02/28/2018 SUBJECTIVE: The patient is seen sitting in chair. She is awake. She is alert. Daughter is at bedside. She denies any pain. She denies any shortness of breath. She reports she had a large bowel movement today. PHYSICAL EXAMINATION: GENERAL: Elderly lady, sitting in bed. VITAL SIGNS: Blood pressure 155/73, heart rate 86, respiratory rate 18, temperature 98.7. HEENT: Normocephalic, atraumatic. NECK: Supple, no JVD. LUNGS: Bilateral equal air entry, bilateral equal expansion. CARDIAC: S1 and S2, regular rate and rhythm, no murmur, no rub. ABDOMEN: Soft, nondistended, nontender, bowel sounds present. EXTREMITIES: No lower extremity edema. INTAKE AND OUTPUT: Not charted. LABORATORY DATA: WBC 8.2, hemoglobin 9.1, hematocrit 26, platelets 347. Sodium 136, potassium 3.3, chloride 104, CO2 of 24, BUN 13, creatinine 0.7, glucose 94, calcium 7.5, phosphorus 2.4, magnesium 1.4, albumin 2.2, corrected calcium is 8.8. CURRENT MEDICATIONS: Iron sucrose 200 mg daily x5, potassium chloride 20 mEq b.i.d., mag oxide 400, MiraLax 17 g, potassium phosphate b.i.d., oxycodone, lisinopril 30. ASSESSMENT: 1. Acute kidney injury, resolved, largely prerenal azotemia. 2. Escherichia coli urinary tract infection. 3. Diarrhea, resolved. 4. Hypokalemia. 5. Hypomagnesemia. 6. Hypophosphatemia. 7. Multiple falls at home, acute rhabdomyolysis, resolved. 8. Anemia with low iron stores. 9. Elevated liver function tests. PLAN: 1. Continue potassium supplementation, continue magnesium and phosphorus supplementation. 2. Continue oral and IV iron. 3. Follow up stool occults. 4. Push p.o. intake. 5. Continue antibiotics for UTI. Rachelle Gutiérrez MD
[2018-03-01 07:06] LABS: HEMOGLOBIN 8.6 g/dL (12.0-16.0); MEAN CELL VOLUME 82.6 fl (80.0-105.0); MEAN CORPUSCULAR HEMOGLOBIN 27.7 pg (25.0-35.0); MEAN CORPUSCULAR HGB CONC 33.6 g/dl (31.0-37.0); MEAN PLATELET VOLUME 8.9 fl (7.0-11.0); RBC 3.1 10^6/uL (3.5-6.1); RED CELL DISTRIBUTION WIDTH 16.8 % (11.5-14.5); WHITE BLOOD COUNT 7.8 10^3/ul (4.5-11.0)
[2018-03-01 07:20] LABS: ALB/GLOB RATIO 0.8 (1.1-1.8); ALBUMIN 2.2 g/dL (3.0-4.8); ALT/SGPT 41 U/L (7-56); AST/SGOT 58 U/L (14-36); BLOOD UREA NITROGEN 15 mg/dL (7-21); CALCIUM 7.5 mg/dL (8.4-10.5); GFR AFRICAN-AMERICAN > 60; GFR NON-AFRICAN AMERICAN > 60
--- NOTE | 2018-03-01 08:41 | PN ---
DATE: 02/27/2018 SUBJECTIVE: An 82-year-old white female status post rhabdomyolysis. The patient had fallen at home and was admitted to the hospital with acute renal failure. She was rehydrated. Her BUN and creatinine have now returned to normal at 16 and 0.7. Her renal ultrasound was negative. The patient is doing physical therapy, outpatient therapy. She had a contusion of the left face and the right upper extremity after her fall and her rhabdo has resolved. She is afebrile. Vital signs are stable. The patient is able to do balance training and physical therapy to avoid further falls in the future. Ulysses Gastelum MD
[2018-03-01] MEDS: Potassium Chloride 20 mEq ER Tab PO SCH ×2 (09:37→17:35)
[2018-03-01] MEDS: Magnesium Oxide 400 mg Tab UD PO SCH ×2 (09:37→17:35)
[2018-03-01] MEDS: POLYETHYLENE GLYCOL 3350 17 GM/Dose PACKET PO SCH (09:37)
[2018-03-01] MEDS: Potassium & Sodium Phosphate PO SCH ×2 (09:37→17:35)
--- NOTE | 2018-03-01 19:10 | PN ---
DATE: 03/01/2018 SUBJECTIVE: Patient is seen sitting in chair. She is awake, she is alert, she is comfortable. She denies any pain. She denies any shortness of breath. PHYSICAL EXAMINATION: GENERAL: Elderly lady sitting in chair. VITAL SIGNS: Blood pressure 154/74, heart rate 91, respiratory rate 18, temperature 98. HEENT: Normocephalic, atraumatic. NECK: Supple, no JVD. LUNGS: Bilateral equal entry, bilateral equal expansion. EXTREMITIES: No lower no lower extremity edema. LABORATORY DATA: Hemoglobin 8.6, hematocrit 25.6. Sodium 138, potassium 3.7, chloride 107, CO2 of 25, BUN 15, creatinine 0.6, glucose 86, calcium 7.5, phosphorus 2.5, magnesium 1.4. AST 58, ALT 41, albumin 2.2. Corrected calcium is 8.8. CURRENT MEDICATIONS: Venofer 200 mg IV piggyback x5 doses, K-Dur 20 mEq b.i.d., mag oxide 400 b.i.d., MiraLax, Neutra-Phos one packet b.i.d., oxycodone, lisinopril 30. ASSESSMENT: 1. Acute kidney injury, prerenal azotemia, resolved. 2. Status post syncope. 3. Diarrhea, resolved. 4. Hypokalemia. 5. Hypomagnesemia. 6. Hypophosphatemia. 7. Severe anemia, worsening hemoglobin and hematocrit. PLAN: 1. Continue potassium supplementation. 2. Continue magnesium supplementation. 3. Continue phosphate supplementation. 4. Continue IV Venofer. 5. Check stool occults. 6. Continue to monitor H&H closely. 7. Continue Zestril for hypertension. Rachelle Gutiérrez MD
[2018-03-02] MEDS: Simethicone 80 mg Chewtab PO PRN ×2 (02:32→21:28)
[2018-03-02 07:13] LABS: HEMOGLOBIN 8.9 g/dL (12.0-16.0); MEAN CELL VOLUME 84.1 fl (80.0-105.0); MEAN CORPUSCULAR HEMOGLOBIN 27.8 pg (25.0-35.0); MEAN CORPUSCULAR HGB CONC 33.1 g/dl (31.0-37.0); MEAN PLATELET VOLUME 8.5 fl (7.0-11.0); RBC 3.2 10^6/uL (3.5-6.1); RED CELL DISTRIBUTION WIDTH 17.1 % (11.5-14.5); WHITE BLOOD COUNT 7.4 10^3/ul (4.5-11.0)
[2018-03-02 07:29] LABS: ALB/GLOB RATIO 0.9 (1.1-1.8); ALBUMIN 2.4 g/dL (3.0-4.8); ALT/SGPT 36 U/L (7-56); AST/SGOT 61 U/L (14-36); BLOOD UREA NITROGEN 10 mg/dL (7-21); CALCIUM 7.9 mg/dL (8.4-10.5); GFR AFRICAN-AMERICAN > 60; GFR NON-AFRICAN AMERICAN > 60
[2018-03-02] MEDS: Potassium Chloride 20 mEq ER Tab PO SCH ×2 (10:06→17:32)
[2018-03-02] MEDS: Magnesium Oxide 400 mg Tab UD PO SCH ×2 (10:06→17:32)
[2018-03-02] MEDS: Potassium & Sodium Phosphate PO SCH ×2 (10:07→17:32)
--- NOTE | 2018-03-02 10:16 | CP.PCM.PN ---
<Suersh Mosquera - Last Filed: 03/02/18 10:13> Subjective - Date & Time of Evaluation Date of Evaluation: 03/02/18 Time of Evaluation: 10:13 - Subjective Subjective: Medicine progress note - Laith Mosquera PGY3 Patient seen and examined at bedside this morning. No acute overnight events or new complaints reported. Her miralax has been held due to prior complaints of diarrhea and stool cdiff is pending. She denies chest pain, palpitations, SOB. Objective - Vital Signs/Intake and Output Vital Signs (last 24 hours): Temp Pulse Resp BP Pulse Ox 98.1 F 82 16 130/57 L 95 03/02/18 06:00 03/02/18 06:00 03/02/18 06:00 03/02/18 06:00 03/02/18 06:00 - Medications Medications: Current Medications Alprazolam (Xanax) 0.5 mg PO HS PRN; Protocol PRN Reason: Insomnia Last Admin: 03/01/18 22:17 Dose: 0.5 mg Iron Sucrose 200 mg/ Sodium (Chloride) 110 mls @ 110 mls/hr IVPB QOTHERDAY [facility] Stop: 03/06/18 10:59 Last Admin: 02/28/18 11:44 Dose: 110 mls/hr Lisinopril (Zestril) 30 mg PO DAILY [facility] Last Admin: 03/01/18 09:38 Dose: 30 mg Magnesium Oxide (Mag-Ox) 400 mg PO BID [facility] Last Admin: 03/01/18 17:35 Dose: 400 mg Polyethylene Glycol (Miralax) 17 gm PO DAILY [facility] PRN Reason: Protocol Last Admin: 03/01/18 09:37 Dose: Not Given Potassium Chloride (K-Dur 20 Meq Er Tab) 20 meq PO BID [facility] Stop: 03/04/18 23:59 Last Admin: 03/01/18 17:35 Dose: 20 meq Potassium Phos/Sodium Phos (Neutra-Phos) 1 pkt PO BID [facility] PRN Reason: Protocol Last Admin: 03/01/18 17:35 Dose: 1 pkt - Labs Labs: 03/02/18 07:00 03/02/18 07:00 - Constitutional Appears: No Acute Distress - Head Exam Head Exam: ATRAUMATIC, NORMOCEPHALIC - Eye Exam Eye Exam: EOMI Pupil Exam: PERRL - ENT Exam ENT Exam: Mucous Membranes Moist - Neck Exam Neck Exam: Normal Inspection - Respiratory Exam Respiratory Exam: Clear to Ausculation Bilateral. absent: Rales, Rhonchi, Wheezes - Cardiovascular Exam Cardiovascular Exam: +S1, +S2. absent: Gallop, JVD, Rubs - GI/Abdominal Exam GI & Abdominal Exam: Soft. absent: Distended, Firm, Guarding, Rigid, Tenderness , Rebound - Extremities Exam Extremities Exam: Normal Inspection. absent: Pedal Edema - Neurological Exam Neurological Exam: Alert, Awake, CN II-XII Intact, Oriented x3 - Psychiatric Exam Psychiatric exam: Normal Affect, Normal Mood - Skin Skin Exam: Dry, Intact, Normal Color, Warm Assessment and Plan - Assessment and Plan (Free Text) Plan: 82yo female with history of hypertension and dyslipidemia presents s/p fall at home complicated by acute kidney injury secondary to rhabdo. Presently in the TCU undergoing physical therapy for deconditioning. 1. Deconditioning 2. Hx of Acute kidney injury secondary to rhabdo, resolved 3. Hypertension 4. Dyslipidemia 6. Hypomagnesemia 7. Hypophosphatemia 8. Hypokalemia 9. Iron deficiency anemia -She is presently undergoing physical therapy in the TCU for deconditioning -Her miralax has been held due to complaints of diarrhea and cdiff study is pending -Her ALEENA secondary to rhabo is presently resolved -Patient is on neutra-phos, potassium chloride and magnesium oxide for correction of electrolyte abnormalities -She is on venofer for anemia per nephrology recommendations -She is on lisinopril for hypertension -She is tolerated her diet without issue -Will continue to monitor her progress in the TCU Patient seen and case discussed/reviewed with attending, Dr. Solomon <Ian Solomon S - Last Filed: 03/03/18 10:45> Objective - Vital Signs/Intake and Output Vital Signs (last 24 hours): Temp Pulse Resp BP Pulse Ox 97.6 F 80 20 118/58 L 96 03/03/18 10:00 03/03/18 10:10 03/03/18 10:00 03/03/18 10:10 03/03/18 10:00 - Medications Medications: Current Medications Acetaminophen (Tylenol 325mg Tab) 650 mg PO Q4H PRN PRN Reason: Pain, moderate (4-7) Last Admin: 03/02/18 11:20 Dose: 650 mg Alprazolam (Xanax) 0.5 mg PO HS PRN; Protocol PRN Reason: Insomnia Last Admin: 03/02/18 21:28 Dose: 0.5 mg Iron Sucrose 200 mg/ Sodium (Chloride) 110 mls @ 110 mls/hr IVPB QOTHERDAY [facility] Stop: 03/06/18 10:59 Last Admin: 03/02/18 10:07 Dose: 110 mls/hr Lisinopril (Zestril) 30 mg PO DAILY [facility] Last Admin: 03/03/18 10:10 Dose: 30 mg Magnesium Oxide (Mag-Ox) 400 mg PO BID [facility] Last Admin: 03/03/18 10:11 Dose: 400 mg Polyethylene Glycol (Miralax) 17 gm PO DAILY [facility] PRN Reason: Protocol Last Admin: 03/01/18 09:37 Dose: Not Given Potassium Chloride (K-Dur 20 Meq Er Tab) 20 meq PO BID [facility] Stop: 03/04/18 23:59 Last Admin: 03/03/18 10:11 Dose: 20 meq Potassium Phos/Sodium Phos (Neutra-Phos) 1 pkt PO BID [facility] PRN Reason: Protocol Last Admin: 03/03/18 10:11 Dose: 1 pkt Simethicone (Mylicon Chew Tab) 80 mg PO [facility] PRN PRN Reason: GI distress Last Admin: 03/03/18 10:11 Dose: 80 mg - Labs Labs: 03/02/18 07:00 03/02/18 07:00 Assessment and Plan - Assessment and Plan (Free Text) Plan: Pt seen and examined yesterday. This is a late entry from that visit. I have reviewed the note of the medical technologist microbiology and agree with it. I have discussed the assessment and plan with the resident. I have reviewed the patient's labs and medications. She is improving with PT. She is eating. No pain.
--- NOTE | 2018-03-02 23:45 | PN ---
DATE: 03/02/2018 SUBJECTIVE: The patient is seen, sitting in chair. She is awake. She is alert. She is complaining of abdominal pain. She is complaining of diarrhea. PHYSICAL EXAMINATION: GENERAL: Elderly lady, sitting in chair. VITAL SIGNS: Blood pressure 150/62, heart rate 84, respiratory rate 18, temperature 97.9. HEENT: Normocephalic, atraumatic. NECK: Supple, no JVD. LUNGS: Bilateral equal air entry, no rales, no rhonchi. CARDIAC: S1 and S2, regular rate and rhythm, no murmur, no rub. ABDOMEN: Soft, distended, positive diffuse tenderness, bowel sounds present. EXTREMITIES: No lower extremity edema. INTAKE AND OUTPUT: Not charted. LABORATORY DATA: WBC 7.9, hemoglobin 8.9, hematocrit 27, platelets 338. Sodium 140, potassium 4.4, chloride 107, CO2 of 27, BUN 10, creatinine 0.6, glucose 82, calcium 7.9, phosphorus 2.9, magnesium 1.6, albumin 2.4, corrected calcium is 8.9. Stool occults negative. C. diff toxin negative, antigen negative. ASSESSMENT: 1. Acute kidney injury, resolved. 2. Hypokalemia, resolved. 3. Diarrhea. 4. Status post fall. 5. Status post syncope. PLAN: 1. ? Empiric antibiotics for diarrhea. 2. Continue current fluid management. 3. Continue potassium replacement, phosphorus replacement, magnesium replacement. Rachelle Gutiérrez MD
[2018-03-03] MEDS: Simethicone 80 mg Chewtab PO PRN ×3 (06:13→18:50)
[2018-03-03] MEDS: Magnesium Oxide 400 mg Tab UD PO SCH (10:11)
[2018-03-03] MEDS: Potassium & Sodium Phosphate PO SCH ×2 (10:11→17:37)
[2018-03-03] MEDS: Potassium Chloride 20 mEq ER Tab PO SCH ×2 (10:11→17:36)
--- NOTE | 2018-03-03 11:34 | PN ---
DATE: 03/03/2018 SUBJECTIVE: The patient is currently seen sitting in a chair in the TCU. She has had an uneventful TCU course. She is receiving IV iron infusions. She is doing therapy and rehabilitation in the TCU. She has had no further falling or syncopal episodes in the TCU. MEDICATIONS: Medication list reviewed. The patient is currently on IV Venofer, potassium tablets, mag oxide, Mylicon, Neutra-Phos, Tylenol p.r.n., Xanax and lisinopril. OBJECTIVE: VITAL SIGNS: Blood pressure ranging from 130-150 systolic, diastolics ranging from 57-66. Heart rate is 84, temperature 97.9, respiratory rate is 18. HEENT: Shows her to be normocephalic, atraumatic. Conjunctivae are pale. Sclerae are nonicteric. NECK: Supple. No neck vein distention. CHEST: Clear to auscultation and percussion. No rales, rhonchi or wheezing. CARDIOVASCULAR: Shows a regular rate and rhythm without audible murmurs, rubs or gallops. ABDOMEN: Soft. Bowel sounds normal. No rebound, guarding or masses. EXTREMITIES: Show no lower extremity cyanosis, clubbing or edema. LABORATORY DATA AND IMAGING: CBC from yesterday showed a 7.4 white blood cell count, hemoglobin 8.9 with a platelet count of 338,000. Chemistries are all normal. BUN is 10 with a creatinine of 0.6. Calcium is 7.9 with an albumin of 2.4, corrects to normal. Phosphorus 2.9, normal on supplements. Magnesium level 1.6, improving with supplements. Microbiology: Stool for C. diff was negative. ASSESSMENT: 1. Acute renal failure, resolved. The patient's BUN and creatinine are normal and back to baseline levels. 2. History of Escherichia coli urinary tract infection, treated with a short course of antibiotic therapy. 3. History of mild hypokalemia, hypomagnesemia, hypophosphatemia. All of her electrolytes are improved on supplements. 4. Status post multiple falls with an episode of acute rhabdomyolysis. This has resolved. 5. Anemia with low iron saturations. The patient will continue on IV iron infusion therapy during the hospitalization. 6. Mild elevation of her liver enzymes. These are improving. PLAN: 1. Continue supplements as noted above. 2. Continue blood pressure medication for hypertension. 3. Continue the full 1 g course of IV Venofer. 4. Stool guaiacs were done and are negative. No further GI workup likely at this point in time. 5. Continue rehabilitation in the TCU. 6. The patient is completely stable from a renal standpoint. Gilberto Xavier MD
--- NOTE | 2018-03-03 15:48 | RAD ---
HISTORY: Abdominal pain. COMPARISON: No prior. FINDINGS: BOWEL: . Constipation without fecal impaction or obstruction. BONES: Severe degenerative changes both hips OTHER FINDINGS: Aorto bi-iliac stent identified. IMPRESSION: No acute findings related to/accounting for the clinical presentation.
[2018-03-03] MEDS: Vancomycin 25 MG/ML PO SCH ×2 (17:36→21:10)
[2018-03-04] MEDS: Potassium Chloride 20 mEq ER Tab PO SCH ×2 (09:47→17:23)
[2018-03-04] MEDS: Potassium & Sodium Phosphate PO SCH ×2 (09:48→17:23)
[2018-03-04] MEDS: Simethicone 80 mg Chewtab PO PRN (09:49)
[2018-03-04] MEDS: Vancomycin 25 MG/ML PO SCH ×3 (09:57→17:32)
--- NOTE | 2018-03-04 19:21 | PN ---
DATE: 03/03/2018 HISTORY OF PRESENT ILLNESS: Ms. Coelho is an 82-year-old female transferred from the regular floor when she was admitted with acute renal failure due to rhabdo. She had a fall at home. She is complaining of diarrhea and abdominal pain. Abdominal pain is crampy in nature. No nausea. No vomiting. She took a course of antibiotics. After that, she developed diarrhea. C. diff sent on 03/02/2018, was negative, both antigen and toxin. She had positive UTI in January with E. coli. PAST MEDICAL HISTORY: Hypertension, hyperlipidemia, acute kidney injury, rhabdomyolysis. SOCIAL HISTORY: Former smoker. FAMILY HISTORY: Noncontributory. REVIEW OF SYSTEMS: As per HPI. Rest of 12-point review of systems reviewed negative. PHYSICAL EXAMINATION: GENERAL: Comfortable, in mild distress due to abdominal pain, cramping, holding the abdomen. VITAL SIGNS: Heart rate is 98 per minute, pulse 100 per minute, respiratory rate is 18 per minute, blood pressure 140/60. HEENT: Pallor positive. NECK: No lymphadenopathy. CHEST: Air entry present and equal bilaterally. No added sound. CARDIOVASCULAR: S1, S2 normal. No murmur. No gallop. ABDOMEN: Mildly tender. No hepatosplenomegaly. EXTREMITIES: No edema. ASSESSMENT: 1. Acute renal failure, recovered. 2. Deconditioning. 3. Iron-deficiency anemia. 4. Status post treated urinary tract infection. 5. Abdominal pain, diarrhea. PLAN: We will do the flat plate abdomen for evaluation. We will start empiric vancomycin 125 mg p.o. four times a day. She had recent course of antibiotics. C-diff negative once. hold the MiraLax, discontinue magnesium because of ongoing diarrhea. Currently, getting IV iron for iron-deficiency anemia. Kimberley Ren MD MTDD
[2018-03-05 06:53] LABS: HEMOGLOBIN 9.1 g/dL (12.0-16.0); MEAN CELL VOLUME 86.4 fl (80.0-105.0); MEAN CORPUSCULAR HEMOGLOBIN 27.6 pg (25.0-35.0); MEAN CORPUSCULAR HGB CONC 31.9 g/dl (31.0-37.0); MEAN PLATELET VOLUME 8.7 fl (7.0-11.0); RBC 3.3 10^6/uL (3.5-6.1); RED CELL DISTRIBUTION WIDTH 17.4 % (11.5-14.5); WHITE BLOOD COUNT 5.6 10^3/ul (4.5-11.0)
[2018-03-05 07:03] LABS: ALBUMIN 2.7 g/dL (3.0-4.8); ALT/SGPT 40 U/L (7-56); AST/SGOT 54 U/L (14-36); BLOOD UREA NITROGEN 12 mg/dL (7-21); CALCIUM 8.5 mg/dL (8.4-10.5); GFR AFRICAN-AMERICAN > 60; GFR NON-AFRICAN AMERICAN > 60
--- NOTE | 2018-03-05 10:02 | PN ---
DATE: 03/05/2018 SUBJECTIVE: An 82-year-old white female in TCU, status post syncopal episode, rhabdomyolysis. Kidney function has now returned to normal. The patient is complaining of some loose bowel movements. Her hemoglobin is up to 9.1. She is on iron therapy. C. diff was negative. PHYSICAL EXAMINATION: VITAL SIGNS: Stable. Afebrile. ABDOMEN: Soft. CHEST: Clear to auscultation and percussion. EXTREMITIES: Without cyanosis, clubbing or edema. ASSESSMENT AND PLAN: The patient will continue physical therapy and occupational therapy and gait training and balance training. She will be discharged home in the morning. Ulysses Gastelum MD
[2018-03-05] MEDS: Potassium & Sodium Phosphate PO SCH ×2 (10:55→18:05)
[2018-03-05] MEDS: Simethicone 80 mg Chewtab PO PRN ×2 (11:53→18:26)
--- NOTE | 2018-03-05 13:58 | PN ---
DATE: 03/05/2018 SUBJECTIVE: The patient is seen sitting in chair. She is awake. She is alert. She is comfortable. She denies any chest pain. She denies any palpitations. PHYSICAL EXAMINATION: GENERAL: Elderly lady, sitting in chair. VITAL SIGNS: Blood pressure 138/69, heart rate 72, respiratory rate 20, temperature 97.8. HEENT: Normocephalic, atraumatic, positive pallor. NECK: Supple, no JVD. LUNGS: Bilateral equal air entry, bilateral equal expansion. CARDIAC: S1 and S2, regular rate and rhythm, no murmur, no rub. ABDOMEN: Soft, nondistended, nontender, bowel sounds present. EXTREMITIES: No lower extremity edema. INTAKE AND OUTPUT: Not charted. LABORATORY DATA: Hemoglobin 9.1. Sodium 137, potassium 4.3, chloride 103, CO2 of 28, BUN 12, creatinine 0.6, glucose 89, calcium 8.5, phosphorus 3.1 magnesium 1.9, AST 54, ALT 40, albumin 2.7, corrected calcium is 9.4. MEDICATIONS: 1. Venofer 200 mg IV piggyback daily, last dose today. 2. MiraLax. 3. Mylicon. 4. Neutra-Phos. 5. Tylenol. 6. Xanax. 7. Zestril. ASSESSMENT: 1. Acute kidney injury, resolved, largely prerenal azotemia. 2. Hypokalemia, resolved. 3. Hypophosphatemia, resolved. 4. Hypomagnesemia, resolved. 5. Anemia with low iron stores. PLAN: 1. Continue current management. 2. Avoid nephrotoxins. 3. Discharge planning. Rachelle Gutiérrez MD
[2018-03-05 16:35] VITALS: RESP 18
--- NOTE | 2018-03-06 09:38 | PN ---
DATE: 03/06/2018 SUBJECTIVE: An 82-year-old white female, status post diarrhea, status post falls with rhabdomyolysis and renal failure. The patient is markedly improved. She is doing well. Her hemoglobin is up to 9.1. PHYSICAL EXAMINATION: VITAL SIGNS: Temperature is 99.1. The patient is stable. Blood pressure 123/55. ASSESSMENT AND PLAN: The patient has no diarrhea today. She is improving from her bruises on her left temporal and right upper extremity. She is doing well with physical therapy and occupational therapy. The plan is for most likely be discharged in the morning. Ulysses Gastelum MD
[2018-03-06] MEDS: Potassium & Sodium Phosphate PO SCH ×2 (10:02→17:32)
--- NOTE | 2018-03-06 15:05 | PN ---
DATE: 03/06/2018 SUBJECTIVE: The patient is currently seen sitting comfortably in her chair in the TCU. She has not had any further episodes of syncope or falling. She is continuing therapy and rehabilitation in the TCU. She expects to be discharged tomorrow. MEDICATIONS: Medication list reviewed. The patient is currently on MiraLax, on hold; Mylicon; Neutra-Phos; Tylenol; Xanax and Zestril. OBJECTIVE: VITAL SIGNS: Blood pressure 112/63 today. Temperature 99.1, respiratory rate 18 with a pulse of 72. HEENT: Exam shows her to be normocephalic, atraumatic. Conjunctivae remain pale. Sclerae are nonicteric. NECK: Supple. No neck vein distention. CHEST: Clear to auscultation and percussion with no rales, rhonchi or wheezing. CARDIOVASCULAR: Shows a regular rate and rhythm without audible murmurs, rubs or gallops. ABDOMEN: Soft. Bowel sounds normal. No rebound, guarding or masses. EXTREMITIES: Show no lower extremity cyanosis, clubbing or edema. LABORATORY DATA AND IMAGING: CBC done yesterday: White blood cell count 5.6, hemoglobin with a platelet count of 444,000. Chemistry showed normal electrolytes. BUN 12 with a creatinine of 0.6. Calcium, phosphorus, magnesium levels are all normal. ASSESSMENT: 1. Acute renal failure, resolved. The patient's BUN and creatinine are back to normal and baseline levels. 2. History of Escherichia coli urinary tract infection, treated with antibiotic therapy, resolved. 3. Mild hypokalemia, hypomagnesemia, hypophosphatemia. All electrolytes have improved with supplements. Everything was normal on 03/05/2018. 4. Status post multiple falls with an episode of mild, but acute rhabdomyolysis. This has resolved. 5. History of anemia with low iron saturations. The patient had continued to receive IV Venofer the hospital. She should be taking oral iron supplements upon discharge home. 6. Minimal elevation of her liver enzymes, these were improving. PLAN: 1. Continue medications as noted above. 2. Continue present blood pressure medication with close monitoring of blood pressure. 3. Complete a full course of IV Venofer, 1 g in total. 4. Continue rehabilitation with likely discharge for tomorrow. 5. The patient is stable from a renal standpoint. Gilberto Xavier MD
[2018-03-06] MEDS: Simethicone 80 mg Chewtab PO PRN (19:43)
[2018-03-07 06:47] VITALS: BP 111/48; PULSE 78; TEMP 98.8; O2SAT 93
--- NOTE | 2018-03-07 08:47 | DS ---
HISTORY OF PRESENT ILLNESS: An 82-year-old female who is transferred to [facility] to [facility] to do rehabilitation. The patient is status post multiple falls with rhabdomyolysis, acute renal failure, contusion of the left face and right upper extremity. The patient has done well in physical therapy and occupational therapy with . She has recovered from her acute renal failure, from rhabdomyolysis. She still has some low-grade anemia. She was treated with Venofer by Dr. Ren in the hospital. She completed her course of therapy. The patient will be discharged home in improved condition to be followed as an outpatient. FINAL DISCHARGE DIAGNOSES: On this patient will be deconditioning, multiple falls, acute renal failure, anemia of chronic disease, facial and upper extremity trauma and mild hypertension. Ulysses Gastelum MD
[2018-03-07] MEDS: Potassium & Sodium Phosphate PO SCH (09:40)
[2018-03-07] MEDS: Simethicone 80 mg Chewtab PO PRN (10:40)
--- NOTE | 2018-03-07 15:40 | PN ---
DATE: 03/07/2018 SUBJECTIVE: The patient is seen sitting in chair. She is awake. She is alert. She is comfortable. She denies any pain. She denies any shortness of breath. PHYSICAL EXAMINATION: GENERAL: Elderly lady, sitting in chair. VITAL SIGNS: Blood pressure 111/48, heart rate 78, respiratory rate 18, temperature 98.8. HEENT: Normocephalic, atraumatic. NECK: Supple, no JVD. LUNGS: Bilateral equal air entry, bilateral equal expansion. EXTREMITIES: No lower extremity edema. LABORATORY DATA: No new labs. MEDICATIONS: MiraLax, Neutra-Phos, Tylenol, Xanax, Zestril. ASSESSMENT AND PLAN: 1. Resolved acute kidney injury. 2. Resolved hypokalemia. 3. Resolved hypophosphatemia. 4. Status post fall. 5. Status post diarrhea. 6. Hypertension, well controlled. 7. No objection to discharge. Rachelle Gutiérrez MD
== END 2018-03-07 14:02 | disposition home or self-care (01) | DRG 558 ==
LOC: TRCU 18:46
PROVIDERS: ADMIT Internal Medicine; ATTEND Internal Medicine
PROC: F07Z9FZ Gait Training/Functional Ambulation Treatment using Assistive, Adaptive, Supportive or Protective Equipment (ICD-10-PCS; principal; 2018-02-28)
PROC: F07Z8FZ Transfer Training Treatment using Assistive, Adaptive, Supportive or Protective Equipment (ICD-10-PCS; 2018-02-28)
PROC: F07L6YZ Therapeutic Exercise Treatment of Musculoskeletal System - Lower Back / Lower Extremity using Other Equipment (ICD-10-PCS; 2018-02-28)
PROC: F08Z2FZ Grooming/Personal Hygiene Treatment using Assistive, Adaptive, Supportive or Protective Equipment (ICD-10-PCS; 2018-02-28)
PROC: F08Z1FZ Dressing Techniques Treatment using Assistive, Adaptive, Supportive or Protective Equipment (ICD-10-PCS; 2018-02-28)
DX: M62.82 Rhabdomyolysis (principal); N39.0 Urinary tract infection, site not specified; R29.6 Repeated falls; I10 Essential (primary) hypertension; D63.8 Anemia in other chronic diseases classified elsewhere; D50.9 Iron deficiency anemia, unspecified; E78.5 Hyperlipidemia, unspecified; H40.9 Unspecified glaucoma; B96.20 Unspecified Escherichia coli [E. coli] as the cause of diseases classified elsewhere; E83.42 Hypomagnesemia; E83.39 Other disorders of phosphorus metabolism; E87.6 Hypokalemia; R19.7 Diarrhea, unspecified; S00.83XD Contusion of other part of head, subsequent encounter; W19.XXXD Unspecified fall, subsequent encounter; Z88.0 Allergy status to penicillin; Z87.891 Personal history of nicotine dependence

== ENCOUNTER 2018-03-26 13:21 | Inpatient (IN) | payer MEDICARE ==
[2018-03-26 13:40] VITALS: BMI 18.0
[2018-03-26] MEDS ORDERED: Iohexol 240 (50 ml) ONE (14:05)
--- NOTE | 2018-03-26 14:07 | ED PDOC ---
Arrival/HPI - General Chief Complaint: Abdominal Pain Time Seen by Provider: 03/26/18 13:29 Historian: Patient - History of Present Illness Narrative History of Present Illness (Text): 03/26/18 14:05 Bibiana Coelho is an 82 year old female, with no significant past medical history, who presents to the emergency department complaining of intermittent non-bloody diarrhea and abdominal pain for the past 5 weeks, with waxing and waning "gas pockets" on right side. Patient notes episodes of diarrhea occur every 12 hours. Patient notes associated symptoms of dizziness, weakness and fatigue. Patient states she took Gasx and anti-diarrheal medication over the counter, with mild relief. Patient denies any fevers, chills, loss of consciousness, chest pain, shortness of breath, nausea, vomiting, back pain, neck pain, urinary symptoms, headache, or any other complaint. PMD: Dr. Gastelum Time/Duration: < week (onset 5 weeks ago) Symptom Onset: Sudden Symptom Course: Unchanged Quality: Gas Like (on right side) Activities at Onset: Light Past Medical History - Provider Review Nursing Documentation Reviewed: Yes - Past History Past History: Non-Contributing - Infectious Disease Hx of Infectious Diseases: None - Tetanus Immunization Tetanus Immunization: Unknown - Cardiac Hx Hypertension: Yes - Pulmonary Hx Respiratory Disorders: No - Neurological Hx Neurological Disorder: Yes Hx Dizziness: Yes - HEENT Hx HEENT Disorder: Yes Hx Cataracts: Yes Hx Deafness: Yes (uses b/l hearing aids which are home) Hx Glaucoma: Yes Other/Comment: pt had sx for cataracts and glaucoma and does not need eyeglasses or eye drops as per daughter bhakti - Renal Hx Renal Disorder: No - Endocrine/Metabolic Hx Endocrine Disorders: Yes - Hematological/Oncological Hx Blood Disorders: No - Integumentary Hx Dermatological Disorder: Yes Other/Comment: laceration, facial contusion bruising noted left side of face, bruising - Musculoskeletal/Rheumatological Hx Falls: Yes - Gastrointestinal Hx Gastrointestinal Disorders: Yes - Genitourinary/Gynecological Hx Genitourinary Disorders: No Hx Reproductive Disorders: No - Psychiatric Hx Psychophysiologic Disorder: No Hx Substance Use: No - Surgical History Other/Comment: stents in legs - Anesthesia Hx Anesthesia: Yes Hx Anesthesia Reactions: No - Suicidal Assessment Feels Threatened In Home Enviroment: No Family/Social History - Physician Review Nursing Documentation Reviewed: Yes Family/Social History: No Known Family HX Smoking Status: Former Smoker Hx Alcohol Use: No Hx Substance Use: No Hx Substance Use Treatment: No Allergies/Home Meds Allergies/Adverse Reactions: Allergies Penicillins Allergy (Mild, Verified 02/26/18 21:12) ANAPHYLAXIS Home Medications: Home Meds Medication Instructions Recorded Confirmed Alprazolam [Xanax] 0.5 mg PO DAILY 09/09/17 02/26/18 Review of Systems - Physician Review All systems were reviewed & negative as marked: Yes - Review of Systems Constitutional: Fatigue, Other (weakness). absent: Normal, Fevers Eyes: Normal. absent: Vision Changes ENT: Normal Respiratory: Normal. absent: SOB, Cough Cardiovascular: Normal. absent: Chest Pain, Palpitations Gastrointestinal: Abdominal Pain, Diarrhea. absent: Normal, Vomiting Genitourinary Female: Normal. absent: Dysuria, Urine Output Changes Musculoskeletal: Normal Skin: Normal. absent: Rash Neurological: Dizziness. absent: Normal, Headache Endocrine: Normal. absent: Diaphoresis Hemo/Lymphatic: Normal Psychiatric: Normal Physical Exam Vital Signs Reviewed: Yes Vital Signs Temp Pulse Resp BP Pulse Ox 03/26/18 13:39 98.5 F 97 H 18 106/53 L 100 Temperature: Afebrile Blood Pressure: Other (Diastolic 53) Pulse: Tachycardic Respiratory Rate: Normal Appearance: Positive for: Well-Appearing, Non-Toxic Pain Distress: Mild Mental Status: Positive for: Alert and Oriented X 3 - Systems Exam Head: Present: Atraumatic, Normocephalic Pupils: Present: PERRL Extroacular Muscles: Present: EOMI Conjunctiva: Present: Normal Mouth: Present: Moist Mucous Membranes Neck: Present: Normal Range of Motion Respiratory/Chest: Present: Clear to Auscultation, Good Air Exchange. No: Respiratory Distress, Accessory Muscle Use, Tender to Palpation Abdomen: Present: Normal Bowel Sounds. No: Tenderness, Distention, Peritoneal Signs, Rebound, Guarding Upper Extremity: Present: Normal Inspection. No: Cyanosis, Edema Lower Extremity: Present: Normal Inspection. No: Edema Neurological: Present: GCS=15, CN II-XII Intact, Speech Normal Skin: Present: Warm, Dry, Normal Color. No: Rashes Psychiatric: Present: Alert, Oriented x 3, Normal Insight, Normal Concentration Medical Decision Making ED Course and Treatment: 03/26/18 14:04 Impression: 82 year old female who presents to the emergency department for abdominal pain and diarrhea for 5 weeks. Plan: -- Labs -- CT scan of abdomen/pelvis -- EKG -- X-Ray of chest -- Blood culture -- Stool Culture -- CDIFF toxin and antigen stat -- Urine culture -- Reassess and disposition Prior Visits: Notes and results from previous visits were reviewed. Patient was last seen in the emergency department on Progress Notes: 03/26/2018 14:06 EKG: Ordered, reviewed, and independently interpreted the EKG. Rate : 93 BPM Rhythm : Sinus rhythm with premature atrial complexes. Interpretation : Right bundle branch block. Comparison : No previous EKG for comparison. - Lab Interpretations Lab Results: 03/26/18 14:50 03/26/18 14:50 Lab Results 03/26/18 17:40: Urine Color Yellow, Urine Appearance Clear, Urine pH 6.0, Ur Specific [place] 1.015, Urine Protein Negative, Urine Glucose (UA) Negative, Urine Ketones Negative, Urine Blood Trace-intact H, Urine Nitrate Positive H, Urine Bilirubin Negative, Urine Urobilinogen 0.2, Ur Leukocyte Esterase Trace H , Urine RBC 10 - 15, Urine WBC 5 - 10, Ur Epithelial Cells 10 - 12 03/26/18 16:00: Iron 26 L, TIBC 245 L, % Saturation 11 L 03/26/18 14:50: Sodium 137, Chloride 102, Potassium 4.6, Carbon Dioxide 23, Anion Gap 16, BUN 22 H, Creatinine 0.8, Est GFR ( Amer) > 60, Est GFR ( Non-Af Amer) > 60, Random Glucose 98, Calcium 9.5, Phosphorus 3.9, Magnesium 1.7 , Total Bilirubin 0.5, AST 31, ALT 25, Alkaline Phosphatase 68, Lactate Dehydrogenase 396, Total Creatine Kinase 28 L, Troponin I < 0.01 D, Total Protein 6.6, Albumin 3.5, Globulin 3.1, Albumin/Globulin Ratio 1.1, Lipase 43 03/26/18 14:50: pO2 33, VBG pH 7.30 L, VBG pCO2 50.0, VBG HCO3 24.6, VBG Total CO2 26.1, VBG O2 Sat (Calc) 63.3, VBG Base Excess -2.4 L, VBG Potassium 5.4 H, Sodium 134.0, Chloride 105.0, Glucose 99, Lactate 0.9, FiO2 21.0, Venous Blood Potassium 5.4 H 03/26/18 14:50: PT 12.4, INR 1.09 03/26/18 14:50: WBC 8.5 D, RBC 2.91 L, Hgb 10.8 L, Hct 28.0 L, MCV 96.2 D, MCH 37.1 H, MCHC 38.6 H, RDW 19.4 H, Plt Count 394, MPV 9.0, Gran % 61.2, Lymph % (Auto) 27.6, Placer % (Auto) 9.9 H, Eos % (Auto) 1.1 L, Baso % (Auto) 0.2, Gran # 5.18, Lymph # (Auto) 2.3, Placer # (Auto) 0.8 H, Eos # (Auto) 0.1, Baso # (Auto ) 0.02 - RAD Interpretation Radiology Orders: 03/26/18 13:56 CHEST PORTABLE [RAD] Stat 03/26/18 14:00 ABD PELVIS PO & IV CONTRAST [CT] Stat - EKG Interpretation Interpreted by ED Physician: Yes Type: 12 lead EKG - Medication Orders Current Medication Orders: Metronidazole (Flagyl) 500 mg in 100 mls @ 100 mls/hr IVPB STAT STA PRN Reason: Protocol Stop: 03/26/18 19:34 Discontinued Medications Levofloxacin/Dextrose (Levaquin 750mg) 750 mg IVPB STAT STA PRN Reason: Protocol Stop: 03/26/18 18:36 - Scribe Statement The provider has reviewed the documentation as recorded by the Allan Asencio All medical record entries made by the Allan were at my direction and personally dictated by me. I have reviewed the chart and agree that the record accurately reflects my personal performance of the history, physical exam, medical decision making, and the department course for this patient. I have also personally directed, reviewed, and agree with the discharge instructions and disposition. Disposition/Present on Arrival - Present on Arrival Any Indicators Present on Arrival: No History of DVT/PE: No History of Uncontrolled Diabetes: No Urinary Catheter: No History of Decub. Ulcer: No History Surgical Site Infection Following: None - Disposition Have Diagnosis and Disposition been Completed?: Yes Diagnosis: UTI (urinary tract infection), Dehydration, Diarrhea, Colitis Disposition: HOSPITALIZED Disposition Time: 18:39 Patient Plan: Admission Condition: FAIR Forms: [employer] (Khmer)
--- NOTE | 2018-03-26 14:52 | RAD ---
Date of service: 03/26/2018 HISTORY: abdominal pain COMPARISON: Chest radiograph dated 01/14/2014. FINDINGS: LUNGS: Biapical pleural-parenchymal scarring. No focal consolidation. PLEURA: No significant pleural effusion identified, no pneumothorax apparent. CARDIOVASCULAR: Atherosclerotic aortic calcifications. Cardiomediastinal silhouette unchanged. OSSEOUS STRUCTURES: Unchanged. VISUALIZED UPPER ABDOMEN: Normal. OTHER FINDINGS: None. IMPRESSION: Hyperinflated lungs. Chronic changes. No focal consolidation or pleural effusion.
[2018-03-26 15:09] LABS: VENOUS BLOOD GAS BASE EXCESS -2.4 mmol/L (0.0-2.0); VENOUS BLOOD GAS PO2 33 mm/Hg (30-55)
[2018-03-26 15:13] LABS: BASO # 0.02 K/mm3 (0.0-2.0); BASO % 0.2 % (0.0-3.0); EOS # 0.1 (0.0-0.7); EOS % 1.1 % (1.5-5.0); GRAN # 5.18 (1.4-6.5); GRAN % 61.2 % (50.0-68.0); HEMOGLOBIN 10.8 g/dL (12.0-16.0); LYMPH # 2.3 (1.2-3.4); LYMPH % 27.6 % (22.0-35.0); MEAN CELL VOLUME 96.2 fl (80.0-105.0); MEAN CORPUSCULAR HEMOGLOBIN 37.1 pg (25.0-35.0); MEAN CORPUSCULAR HGB CONC 38.6 g/dl (31.0-37.0); MONO # 0.8 (0.1-0.6); MONO % 9.9 % (1.0-6.0); RBC 2.91 10^6/uL (3.5-6.1); RED CELL DISTRIBUTION WIDTH 19.4 % (11.5-14.5); WHITE BLOOD COUNT 8.5 10^3/ul (4.5-11.0)
[2018-03-26 15:14] LABS: INR 1.09
[2018-03-26 15:31] LABS: TROPONIN I < 0.01 ng/mL
[2018-03-26 15:43] LABS: ALB/GLOB RATIO 1.1 (1.1-1.8); ALBUMIN 3.5 g/dL (3.0-4.8); ALT/SGPT 25 U/L (7-56); AST/SGOT 31 U/L (14-36); BLOOD UREA NITROGEN 22 mg/dL (7-21); CALCIUM 9.5 mg/dL (8.4-10.5); GFR AFRICAN-AMERICAN > 60; GFR NON-AFRICAN AMERICAN > 60; LIPASE 43 U/L (23-300)
[2018-03-26] MEDS ORDERED: Iohexol 350 MG/100 ML VIAL ONE (16:04)
[2018-03-26 16:54] LABS: IRON 26 ug/dL (45-180)
[2018-03-26 17:04] LABS: % IRON SATURATION 11 % (20-55); TOTAL IRON BINDING CAPACITY 245 ug/dL (265-497)
--- NOTE | 2018-03-26 17:27 | CARD ---
APPROVED REPORT Date of service: 03/26/2018 EKG Measurement Heart [id number] <Conclusion> Sinus rhythm with premature atrial complexes Right bundle branch block Abnormal ECG
[2018-03-26 18:12] LABS: URINE BILIRUBIN NEGATIVE (NEGATIVE); URINE BLOOD TRACE-INTACT (NEGATIVE); URINE GLUCOSE (UA) NEGATIVE (NEGATIVE); URINE LEUKOCYTE ESTERASE TRACE Leu/uL (NEGATIVE); URINE PROTEIN NEGATIVE mg/dL (<30 mg/dL); URINE UROBILINOGEN 0.2 E.U./dL (<1 E.U./dL)
[2018-03-26 18:22] LABS: URINE APPEARANCE CLEAR (CLEAR); URINE COLOR YELLOW (YELLOW)
--- NOTE | 2018-03-26 18:32 | CT ---
Date of service: 03/26/2018 PROCEDURE: CT Abdomen and Pelvis with contrast HISTORY: abdominal pain COMPARISON: None. TECHNIQUE: Contrast dose: 100 cc Omnipaque 350. Radiation dose: Total exam DLP = 366.63 mGy-cm. This CT exam was performed using one or more of the following dose reduction techniques: Automated exposure control, adjustment of the mA and/or kV according to patient size, and/or use of iterative reconstruction technique. FINDINGS: LOWER THORAX: Unremarkable. LIVER: Unremarkable. No gross lesion or ductal dilatation. GALLBLADDER AND BILE DUCTS: Unremarkable. PANCREAS: Unremarkable. No gross lesion or ductal dilatation. SPLEEN: Unremarkable. ADRENALS: Unremarkable. No mass. KIDNEYS AND URETERS: Unremarkable. No hydronephrosis. No solid mass. VASCULATURE: Unremarkable. No aortic aneurysm. BOWEL: Acute colitis. This involves a long segment of the descending colon and splenic flexure the right hemicolon is spared. In addition, there is considerable diverticular disease primarily affecting the left hemicolon. APPENDIX: Normal appendix. PERITONEUM: Unremarkable. No free fluid. No free air. LYMPH NODES: Unremarkable. No enlarged lymph nodes. BLADDER: Unremarkable. REPRODUCTIVE: Unremarkable. BONES: No acute fracture. OTHER FINDINGS: None. IMPRESSION: Severe and acute Left oracio colitis. Inflammatory changes extend from the distal transverse colon in an uninterrupted fashion to the sigmoid with sparing of the rectum.
[2018-03-26] MEDS ORDERED: levoFLOXacin 750 mg in D5W 150 ML BAG IVPB STA (18:35)
[2018-03-26] MEDS ORDERED: metroNIDAZOLE IV 500 mg/100 ml 500 MG/100 ML BAG IVPB STA (18:35)
[2018-03-26] MEDS: metroNIDAZOLE IV 500 mg/100 ml 500 MG/100 ML BAG IVPB SCH (21:59)
--- NOTE | 2018-03-27 00:22 | CP.PCM.CON ---
History of Present Illness - History of Present Illness History of Present Illness: Ms. Coelho is a 82 year old female who was seen in office today for iron deficiency anemia. She received one dose of IV iron last week. She complained for loose stools all night 5-6 times. Poor Po intake. No nausea, vomiting. She has diarrhea for past one month. Weight loss . failure to thrive. She had 2 episodes of UTI since Aug this year. Review of Systems - Constitutional Constitutional: Fatigue, Malaise, Weakness - EENT Eyes: absent: As Per HPI, Blind Spots, Blurred Vision, Change in Vision, Decreased Night Vision, Diplopia, Discharge, Dry Eye, Exophthalmos, Floaters, Irritation, Itchy Eyes, Loss of Peripheral Vision, Pain, Photophobia, Requires Corrective Lenses, Sees Flashes, Spots in Vision, Tunnel Vision, Other Visual Disturbances, Loss of Vision, Other Ears: absent: As Per HPI, Decreased Hearing, Ear Discharge, Ear Pain, Tinnitus, Abnormal Hearing, Disequilibrium, Dizziness, Other Nose/Mouth/Throat: absent: As Per HPI, Epistaxis, Nasal Congestion, Nasal Discharge, Nasal Obstruction, Nasal Trauma, Nose Pain, Post Nasal Drip, Sinus Pain, Sinus Pressure, Bleeding Gums, Change in Voice, Dental Pain, Dry Mouth, Dysphagia, Halitosis, Hoarsness, Lip Swelling, Mouth Lesions, Mouth Pain, Odynophagia, Sore Throat, Throat Swelling, Tongue Swelling, Facial Pain, Neck Pain, Neck Mass, Other - Breasts Breasts: absent: As Per HPI, Change in Shape, Mass, Pain, Nipple Discharge, Nipple Inversion, Skin Changes, Swelling, Other - Cardiovascular Cardiovascular: absent: As Per HPI, Acrocyanosis, Chest Pain, Chest Pain at Rest , Chest Pain with Activity, Claudication, Diaphoresis, Dyspnea, Dyspnea on Exertion, Edema, Irregular Heart Rhythm, Pain Radiating to Arm/Neck/Jaw, Leg Edema, Leg Ulcers, Lightheadedness, Orthopnea, Palpitations, Paroxysmal Nocturnal Dyspnea, Pedal Edema, Radiating Pain, Rapid Heart Rate, Slow Heart Rate, Syncope, Other - Respiratory Respiratory: absent: As Per HPI, Cough, Dyspnea, Hemoptysis, Dyspnea on Exertion , Wheezing, Snoring, Stridor, Pain on Inspiration, Chest Congestion, Excessive Mucous Production, Change in Mucous Color, Pain with Coughing, Other - Gastrointestinal Gastrointestinal: As Per HPI - Genitourinary Genitourinary: As Per HPI - Reproductive: Female Reproductive:Female: absent: As Per HPI, Amenorrhea, Amenorrhea/ Control, Currently Menstual, Cycle <21 Days, Cycle >35 Days, Cycle Variable, Menses 1-7 Days, Menses >/= 8 Days, Menses Variable, Cycle > 4 Weeks Between, No Menses for 6 Months, Heavy Menses, Light Menses, Normal Menses, Spotting Between Cycles , S/P Hysterectomy, Menopausal, Post Menopausal, Premenarche, Abnormal Vaginal Bleeding, Dysmenorrhea, Dyspareunia, Genital Lesions, Genital Pruritis, Pelvic Pain, Prolapse Symptoms, Sexual Dysfunction, Vaginal Discharge, Vaginal Dryness , Vaginal Odor, Vaginal Pruritis, Other - Menstruation Menstruation: absent: As Per HPI, Amenorrhea, Amenorrhea/ Control, Currently Menstual, Cycle <21 Days, Cycle >35 Days, Cycle Variable, Menses 1-7 Days, Menses >/= 8 Days, Menses Variable, Cycle > 4 Weeks Between, No Menses for 6 Months, Heavy Menses, Light Menses, Normal Menses, Spotting Between Cycles , S/P Hysterectomy, Menopausal, Post Menopausal, Premenarche, Abnormal Vaginal Bleeding, Dysmenorrhea, Other - Musculoskeletal Musculoskeletal: absent: As Per HPI, Abnormal Gait, Arthralgias, Atrophy, Back Pain, Deformity, Joint Swelling, Limited Range of Motion, Loss of Height, Muscle Cramps, Muscle Weakness, Myalgias, Neck Pain, Numbness, Radiating Pain into Limb, Stiffness, Tingling, Other - Integumentary Integumentary: absent: As Per HPI, Acne, Alopecia, Bleeding Lesions, Change in Hair, Change in Nails, Change in Pigmentation, Changing Lesions, Dry Skin, Erythema, Furuncle, Hirsutism, Lesions, New Lesions, Non-Healing Lesions, Photosensitivity, Pruritus, Rash, Skin Pain, Skin Ulcer, Sores, Striae, Swelling , Unusual Bruising, Wounds, Jaundice, Other - Neurological Neurological: absent: As Per HPI, Abnormal Gait, Abnormal Hearing, Abnormal Movements, Abnormal Speech, Behavioral Changes, Burning Sensations, Confusion, Convulsions, Disequilibrium, Dizziness, Numbness, Focal Weakness, Frequent Falls , Headaches, Lack of Coordination, Loss of Vision, Memory Loss, Paresthesias, Radicular Pain, Restless Legs, Sensory Deficit, Syncope, Tingling, Tremor, Vertigo, Weakness, Other Visual Disturbances, Other - Psychiatric Psychiatric: absent: As Per HPI, Abnormal Sleep Pattern, Anhedonia, Anxiety, Auditory Hallucinations, Behavioral Changes, Change in Appetite, Change in Libido, Confusion, Depression, Difficulty Concentrating, Hallucinations, Homicidal Ideation, Hopelessness, Irritability, Memory Loss, Mood Swings, Panic Attacks, Paranoia, Suicidal Ideation, Visual Hallucinations, Tactile Hallucinations, Other - Endocrine Endocrine: absent: As Per HPI, Change in Body Appearance, Change in Libido, Cold Intolorance, Deepening of Voice, Excessive Sweating, Fatigue, Flushing, Heat Intolorance, Increase in Ring/Shoe/Hat Size, Palpitations, Polydipsia, Polyphagia, Polyuria, Other - Hematologic/Lymphatic Hematologic: As Per HPI Past Patient History - Infectious Disease Hx of Infectious Diseases: None - Tetanus Immunizations Tetanus Immunization: Unknown - Past Social History Smoking Status: Former Smoker - CARDIAC Hx Hypertension: Yes - PULMONARY Hx Respiratory Disorders: No - NEUROLOGICAL Hx Neurological Disorder: Yes Hx Dizziness: Yes - HEENT Hx HEENT Problems: Yes Hx Cataracts: Yes Hx Deafness: Yes (uses b/l hearing aids which are home) Hx Glaucoma: Yes Other/Comment: pt had sx for cataracts and glaucoma and does not need eyeglasses or eye drops as per daughter bhakti - RENAL Hx Chronic Kidney Disease: No - ENDOCRINE/METABOLIC Hx Endocrine Disorders: Yes - HEMATOLOGICAL/ONCOLOGICAL Hx Blood Disorders: No - INTEGUMENTARY Hx Dermatological Problems: Yes Other/Comment: laceration, facial contusion bruising noted left side of face, bruising - MUSCULOSKELETAL/RHEUMATOLOGICAL Hx Falls: Yes - GASTROINTESTINAL Hx Gastrointestinal Disorders: Yes - GENITOURINARY/GYNECOLOGICAL Hx Genitourinary Disorders: No Hx Reproductive Disorders: No - PSYCHIATRIC Hx Psychophysiologic Disorder: No Hx Substance Use: No - SURGICAL HISTORY Other/Comment: stents in legs - ANESTHESIA Hx Anesthesia: Yes Hx Anesthesia Reactions: No Meds Allergies/Adverse Reactions: Allergies Allergy/AdvReac Type Severity Reaction Status Date / Time Penicillins Allergy Mild ANAPHYLAXIS Verified 02/26/18 21:12 - Medications Medications: Current Medications Metronidazole (Flagyl) 500 mg in 100 mls @ 100 mls/hr IVPB Q8 MIGNON PRN Reason: Protocol Last Admin: 03/26/18 21:59 Dose: Not Given Levofloxacin/Dextrose (Levaquin 500mg) 500 mg in 100 mls @ 100 mls/hr IVPB DAILY MIGNON PRN Reason: Protocol Physical Exam - Constitutional Appears: Cachectic, Chronically Ill - Head Exam Head Exam: ATRAUMATIC, NORMAL INSPECTION, NORMOCEPHALIC - Eye Exam Eye Exam: Normal appearance - ENT Exam ENT Exam: Mucous Membranes Moist - Neck Exam Neck exam: Positive for: Normal Inspection - Respiratory Exam Respiratory Exam: Clear to Auscultation Bilateral, NORMAL BREATHING PATTERN - Cardiovascular Exam Cardiovascular Exam: REGULAR RHYTHM, +S1, +S2 - GI/Abdominal Exam GI & Abdominal Exam: Normal Bowel Sounds, Soft - Back Exam Back exam: NORMAL INSPECTION - Neurological Exam Neurological exam: CN II-XII Intact, Normal Gait, Oriented x3 - Psychiatric Exam Psychiatric exam: Normal Affect - Skin Skin Exam: Pallor, Warm Results - Vital Signs Recent Vital Signs: Last Vital Signs Temp 98.4 F 03/26/18 22:15 Pulse 83 03/26/18 22:15 Resp 18 03/26/18 22:15 BP 132/52 L 03/26/18 22:15 Pulse Ox 96 03/26/18 22:15 - Labs Result Diagrams: 03/26/18 14:50 03/26/18 14:50 Assessment & Plan - Assessment and Plan (Free Text) Assessment: 1. Colitis : diarrhea for [address] abdomen, pelvis showed colitis left sided. weight loss, r/o malabsorption, r/o pancreatic malignancy . Tumor markers ordered with am labs- CEA, CA 19.9, CA 125. Consult GI, ID requested. 2. On levaquin, flagyl. 3. Iron deficiency anemia - may be due to occult GI bleed loss, iron absorption defect , malabsorption due to chronic diarrhea. Hb/Hct stable. 4. Renal : normal BUN, creatinine. Thank you Dr. Gastelum for allowing us to participate in her care.
[2018-03-27] MEDS: metroNIDAZOLE IV 500 mg/100 ml 500 MG/100 ML BAG IVPB SCH ×3 (05:45→21:49)
[2018-03-27] MEDS: Vancomycin 25 MG/ML PO SCH ×4 (09:58→22:30)
[2018-03-27] MEDS ORDERED: levoFLOXacin 500 mg in D5W 500 MG/100 ML BAG IVPB SCH (10:00)
--- NOTE | 2018-03-27 11:12 | CP.PCM.CON ---
History of Present Illness - History of Present Illness History of Present Illness: Nir Dietrich DO, PGY-2: GI Consult Note for Dr. Cade [age] year-old female with a past medical history of hypertension, recurrent UTIs, recent admission for a fall, UTI, rhabdomyolysis, acute kidney injury who presents to the ED for diarrhea and abdominal pain. She was actually seeeing her her Crop Consultant for an Iron infusion, but instead was referred immediately to the ED given how sick she appears. The patient reports having nonbloody diarrhea for the past seven weeks that is all kinds of different colors, and namely a watery consistency. She denies any precipitating factor aside from antibiotic use for UTIs. She reports that diarrhea occurs with or without eating and is associated with left-sided abdominal cramping and abdominal distention, despite not eating. She also reports some 20 pound weight loss in the interim which she attributes to her frequent diarrhea and loss of appetite. She denies ever having a colonoscopy. She denies any fever, chills, flank pain, but admits to weakness, fatigue, and episodic dark stools. She denies any bright red blood per rectum. In the emergency department, CT of the abdomen and pelvis showed severe an acute left hemicollitis. The inflammatory changes are extend from the distal transverse colon in an on interrupted fashion to the sigmoid colon with sparing of rectum. UA was grossly positive with the preliminary culture growing gram-negative rods with greater than 100,000 colony forming units per mL and a gram-positive cocci that was growing between 50,000 and 100,000 colony forming units per milliliter. She reports that her abdominal distension has come down since being hospitalized and that her abdominal pain is controlled with her current medication. GI was consulted for consulted for colitis in the setting of diarrhea and recurrent UTIs. PMH: hypertension PSH: Denies Allergies: Penicillin Social: Lives alone, daughter live one floor above her, former smoker; denies alcohol or illicit drug use. PMD: Dr. Gastelum Review of Systems - Review of Systems All systems: reviewed and no additional remarkable complaints except (as per HPI ) Past Patient History - Infectious Disease Hx of Infectious Diseases: None - Tetanus Immunizations Tetanus Immunization: Unknown - Past Social History Smoking Status: Former Smoker - CARDIAC Hx Hypertension: Yes - PULMONARY Hx Respiratory Disorders: No - NEUROLOGICAL Hx Neurological Disorder: Yes Hx Dizziness: Yes - HEENT Hx HEENT Problems: Yes Hx Cataracts: Yes Hx Deafness: Yes (uses b/l hearing aids which are home) Hx Glaucoma: Yes Other/Comment: pt had sx for cataracts and glaucoma and does not need eyeglasses or eye drops as per daughter bhakti - RENAL Hx Chronic Kidney Disease: No - ENDOCRINE/METABOLIC Hx Endocrine Disorders: Yes - HEMATOLOGICAL/ONCOLOGICAL Hx Blood Disorders: No - INTEGUMENTARY Hx Dermatological Problems: Yes Other/Comment: laceration, facial contusion bruising noted left side of face, bruising - MUSCULOSKELETAL/RHEUMATOLOGICAL Hx Falls: Yes - GASTROINTESTINAL Hx Gastrointestinal Disorders: Yes - GENITOURINARY/GYNECOLOGICAL Hx Genitourinary Disorders: No Hx Reproductive Disorders: No - PSYCHIATRIC Hx Substance Use: No - SURGICAL HISTORY Other/Comment: stents in legs - ANESTHESIA Hx Anesthesia: Yes Hx Anesthesia Reactions: No Meds Allergies/Adverse Reactions: Allergies Allergy/AdvReac Type Severity Reaction Status Date / Time Penicillins Allergy Mild ANAPHYLAXIS Verified 02/26/18 21:12 - Medications Medications: Current Medications Acetaminophen (Tylenol 325mg Tab) 650 mg PO Q4H PRN PRN Reason: Pain, moderate (4-7) Alprazolam (Xanax) 0.5 mg PO DAILY [facility] PRN Reason: Protocol Last Admin: 03/27/18 09:55 Dose: Not Given Metronidazole (Flagyl) 500 mg in 100 mls @ 100 mls/hr IVPB Q8 [facility] PRN Reason: Protocol Last Admin: 03/27/18 05:45 Dose: 100 mls/hr Meropenem (Merrem Iv 1 Gm Premix) 50 mls @ 100 mls/hr IVPB Q8 [facility] PRN Reason: Protocol Stop: 04/05/18 14:01 Lisinopril (Zestril) 30 mg PO DAILY [facility] Last Admin: 03/27/18 09:58 Dose: 30 mg Vancomycin HCl (Vancocin 25 Mg/Ml (Oral Use)) 250 mg PO QID [facility] PRN Reason: Protocol Stop: 04/05/18 10:01 Last Admin: 03/27/18 09:58 Dose: 250 mg Physical Exam - Constitutional Appears: Non-toxic, No Acute Distress - Head Exam Head Exam: ATRAUMATIC, NORMOCEPHALIC - Eye Exam Eye Exam: EOMI, Normal appearance - ENT Exam ENT Exam: Mucous Membranes Dry - Neck Exam Neck exam: Positive for: Normal Inspection - Respiratory Exam Respiratory Exam: Clear to Auscultation Bilateral, NORMAL BREATHING PATTERN. absent: Accessory Muscle Use - Cardiovascular Exam Cardiovascular Exam: RRR, +S1, +S2 - GI/Abdominal Exam GI & Abdominal Exam: Soft. absent: Distended, Guarding, Rebound - Exam Additional comments: wearing adult diaper - Extremities Exam Extremities exam: Positive for: normal inspection. Negative for: calf tenderness - Back Exam Back exam: absent: CVA tenderness (L), CVA tenderness (R) - Neurological Exam Neurological exam: Alert, CN II-XII Intact, Oriented x3 - Psychiatric Exam Psychiatric exam: Normal Affect, Normal Mood - Skin Skin Exam: Dry, Intact, Normal Color, Warm Results - Vital Signs Recent Vital Signs: Last Vital Signs Temp 98.4 F 03/27/18 08:10 Pulse 94 H 03/27/18 08:10 Resp 20 03/27/18 08:10 BP 116/45 L 03/27/18 08:10 Pulse Ox 98 03/27/18 08:10 - Labs Result Diagrams: 03/26/18 14:50 03/26/18 14:50 Labs: Laboratory Results - last 24 hr 03/27/18 06:30 Carcinoembryonic Ag 3.6 H - EKG Data EKG shows normal: Sinus rhythm - EKG Data When Compared to Previous EKG: No Significant Change Assessment & Plan - Assessment and Plan (Free Text) Assessment: 82 year old female with 7 weeks of diarrhea in the setting of frequent UTIs who was found to have a left sided colitis and UTI Plan: 1) - Date & Time Date: 03/27/18 Time: 11:47
[2018-03-27 13:11] LABS: FOLATE > 20.0 ng/mL
--- NOTE | 2018-03-27 13:29 | CON ---
Peterson Biggs MD DATE: 03/27/2018 LOCATION: The patient is in room 578, bed 1. Patient of Dr. Ulysses Gastelum. CHIEF COMPLAINT: Abdominal cramps and diarrhea x7 weeks duration. HISTORY OF PRESENT ILLNESS: This is an 82-year-old white female with history of hypertension, history of glaucoma, cataract, peripheral vascular disease. The patient also had a history of acute kidney failure in the past, rhabdomyolysis, high cholesterol. Had E. coli bacteremia in 2014. Also had E. coli urinary tract infection in the past who is admitted now with diarrhea x7 weeks duration. The patient states that she was on antibiotics as outpatient for urinary tract infection and she is not clear which antibiotic she was on and she denies any fevers, any chills. She has some abdominal cramps and there is no back pain and there is no dysuria or frequency. REVIEW OF SYSTEMS: A 12-point review of systems is performed. There is no headaches or blurred vision and no rash and no joint pain. No blood in her diarrhea and it is non-bloody. There is some abdominal cramps and this she described as pockets of gas and there is no nausea or vomiting. No upper GI symptoms. She is fatigued and weak and the diarrhea is not relieved by antidiarrheal medications, which she took [id number]. There is no chest pain, shortness of breath. There is no cough and no urinary symptoms. PAST MEDICAL HISTORY: Significant for hypertension, cataract, glaucoma, peripheral vascular disease, kidney failure in the past secondary to rhabdomyolysis, high cholesterol, E. coli bacteremia in 2014 and E. coli urinary tract infection. PAST SURGICAL HISTORY: Significant for cataract surgery and peripheral vascular stent. The patient states that she has had no recent travel and no one else has diarrhea at home. ALLERGIES: SHE IS ALLERGIC TO PENICILLIN, SHE DEVELOPS A RASH. MEDICATIONS AT HOME: Include Xanax, Protonix, lisinopril and aspirin. PHYSICAL EXAMINATION: GENERAL: She is in bed, nontoxic, answering questions appropriately. VITAL SIGNS: Temperature of 98.5, heart rate of 97, respiratory rate of 18, blood pressure is 106/53. HEENT: Unremarkable. NECK: Supple. LUNGS: Have decreased breath sounds. HEART: Normal S1, S2. ABDOMINAL: Soft, nontender. No rebound. No guarding. No masses. There is no CVA tenderness. SKIN: There is no rash on the skin. NEUROLOGICAL: She is awake and alert. Motor function is 5/5. Cranial nerves are intact. LABORATORY EXAMINATION: Reveals a white count of 8.5, hemoglobin of 10, platelets of 394. The patient has 61% granulocytosis, 27% lymphocytosis, 9% monocytosis. Coagulation is noted. The blood gases are reviewed. Chemistries reveals a BUN of 22, creatinine of 0.8. The carcinoembryonic antigen is 3.6, K is 28. Urinalysis reveals 5-10 wbc's, trace leukocyte esterase and positive nitrates. The patient's CAT scan of the abdomen is reviewed and showed severe left-sided hemicolitis. Chest x-ray is noted to be chronic changes. ASSESSMENT AND PLAN: An 82-year-old female with hypertension, cataract, glaucoma, peripheral vascular disease, history of acute kidney failure, history of rhabdomyolysis, history of urinary tract infections in the past, history of Escherichia coli bacteremia, high cholesterol, now presenting with diarrhea for 7 weeks. She had been on antibiotics as outpatient. 1. Severe left-sided hemicolitis, must rule out pseudomembranous colitis versus antibiotic-induced diarrhea such as Klebsiella. Must rule out Klebsiella oxytoca secondary to Augmentin use, but we are not sure, ischemic colitis, less likely, nonbloody and 0157. No fevers in this patient less likely. There is no hematologic disorder. As far as platelets are concerned, neurologic, she is intact and Staphylococcus aureus bacteremia giving you colitis without a fever and white count to be less likely. We will order Giardia, Norovirus, Shiga toxin producing Escherichia coli and stool cultures, stool for Clostridium difficile, urine culture, blood cultures and start the patient on IV Flagyl, p.o. vancomycin and IV meropenem, pending initial workup and Gastroenterology evaluation. We will follow closely with you. Peterson Biggs MD : 03/27/2018 8:32:28
[2018-03-27] MEDS: Meropenem IV 1 gm in NS 50 ML IVPB SCH ×2 (14:05→21:50)
--- NOTE | 2018-03-28 00:47 | CON ---
Copied To: Gustavo Khan MD Attending MD: Gustavo Khan MD DATE: 03/27/2018 REQUESTING PHYSICIAN: Ulysses Gastelum MD REASON FOR CONSULTATION: I have been asked to see this 82-year-old female who comes to the emergency room with several weeks of diarrhea, left upper quadrant abdominal cramps and intermittent dizziness. The patient has been treated for urinary tract infection as well as pyelonephritis with antibiotics over the last 6 months. Her last antibiotic use was approximately 6 weeks ago for a kidney infection. She denies any rectal bleeding, melena, nausea, vomiting, fevers or chills. She denies any dysuria, urgency or hematuria. CT scan of the abdomen and pelvis reveals colitis involving the distal transverse colon down to the sigmoid colon. There is no pericolonic inflammatory change. The patient is also know to have history of renal insufficiency. PAST MEDICAL HISTORY: Notable for hypertension, peripheral vascular disease. Fall with scalp laceration, urinary tract infection, pyelonephritis, hypertension, dizziness, glaucoma. PAST SURGICAL HISTORY: Notable for cataract surgery. She also has stents in her legs. SOCIAL HISTORY: She is a former cigarette smoker having quit years ago. She denies alcohol use. FAMILY HISTORY: Noncontributory. REVIEW OF SYSTEMS: A 14-point review of systems is notable for diarrhea, left upper quadrant abdominal cramps, weakness and dizziness. PHYSICAL EXAMINATION: GENERAL: Elderly female lying in bed, in no acute distress. She is awake and, alert. VITAL SIGNS: Reveal temperature of 98.4, blood pressure 116/45, heart rate 94. HEENT: Reveal sclerae to be white. Oral mucosa is dry. NECK: Supple. CHEST: Reveal lungs to be clear. HEART: Reveals regular rate and rhythm. ABDEOMEN: Soft, nontender. No mass. EXTREMITIES: Show no edema. LABORATORY DATA: Reveal white blood cell count of 8.5, hemoglobin of 10.8. Chemistries revealed BUN 22, creatinine 0.8. Iron saturation is 11 with a total iron of 26, total iron binding capacity of 245. CEA of 3.6. IMPRESSION: This is an 82-year-old female with diarrhea for approximately 6 weeks associated with left upper quadrant cramps and a CT scan of the abdomen and pelvis showing mural thickening of the transverse colon down to the sigmoid colon without any prior pericolonic inflammation. The patient has had antibiotics prescribed approximately 6 weeks ago for apparent pyelonephritis and also urinary tract infections in the past. The concern is that the patient is pseudomembranous colitis, clinically she is also dehydrated. RECOMMENDATIONS: 1. Continue IV fluid hydration. 2. Check stool for C. Diff toxin. Gustavo Khan MD
[2018-03-28] MEDS: metroNIDAZOLE IV 500 mg/100 ml 500 MG/100 ML BAG IVPB SCH ×3 (05:36→21:40)
[2018-03-28] MEDS: Meropenem IV 1 gm in NS 50 ML IVPB SCH ×3 (05:37→21:40)
--- NOTE | 2018-03-28 08:30 | HP ---
Copied To: Ulysses Gastelum MD Attending MD: Ulysses Gastelum MD. DATE: 03/27/2018 SUBJECTIVE: An 82-year-old white female with a 6-week history of diarrhea, history of stents in the past, recent admission for syncopal episode with rhabdomyolysis and renal failure. Patient continues to have diarrhea at home. She denies any bleeding in stool, any change in bowel habits. Denies any fever, chills, nausea, vomiting or abdominal pain. Patient has had antibiotics recently in the past, her C. diff is negative. Patient was admitted with severe diarrhea and abdominal pain. It was found on CT colitis, ischemic versus infectious colitis verus C. diff. PHYSICAL EXAMINATION: VITAL SIGNS: Patient is afebrile. Blood pressure 95/40. CHEST: Clear to auscultation and percussion. HEART: Regular sinus rhythm. ABDOMEN: Soft. There is minimal tenderness in the left lower quadrant and there is no guarding. There are no masses palpable. There is no rebound tenderness. Bowel sounds are normoactive. EXTREMITIES: Without cyanosis, clubbing or edema. NEUROLOGIC: Neurological examination is grossly intact. LABORATORY DATA: Hemoglobin is 10.8, white count is 8.5. BUN and creatinine is stable. IMPRESSION: Colitis, rule out ischemic versus infectious colitis. Ulysses Gastelum MD
--- NOTE | 2018-03-28 09:57 | PN ---
DATE: 03/28/2018 SUBJECTIVE: An 82-year-old white female admitted to the hospital with colitis, chronic diarrhea. Patient is on IV antibiotics. She was seen in consultation by Dr. Biggs and Dr. Khan. Patient is afebrile. Patient did have an episode of diarrhea after two days. We are waiting for the rest of her results. Continue with IV antibiotics. Physical therapy started. Patient was evaluated. Bowel sounds are stable. We will increase her diet and we will follow her laboratory data. Hemoglobin is 10.8. Her INR was low. B12 was over 1000. CEA is 3.6. Patient is on meropenem, vancomycin and Flagyl. Ulysses Gastelum MD
[2018-03-28] MEDS: Vancomycin 25 MG/ML PO SCH ×4 (10:25→22:50)
--- NOTE | 2018-03-28 12:09 | PN ---
Copied To: Gustavo Khan MD Attending MD: Gustavo Khan MD DATE: 03/28/2018 SUBJECTIVE: The patient remains weak. She had two watery bowel movements this morning. There is no rectal bleeding. A stool for C. diff toxin was finally sent this morning. She admits to mild lower abdominal cramps. PHYSICAL EXAMINATION: VITAL SIGNS: Reveal temperature of 97.7, blood pressure 108/50, heart rate 73. HEENT: Reveals sclerae to be white. Oral mucosa is dry. NECK: Supple. CHEST: Reveal lungs to be clear. HEART: Reveals regular rate and rhythm. ABDOMEN: Soft. Mild lower abdominal tenderness. No rebound or guarding. EXTREMITIES: Show no edema. LABORATORY DATA: Reveal hemoglobin 10.8 from 03/26/2018, white blood cell count 8.5 from 03/26/2018. No new chemistries are available. IMPRESSION: An 82-year-old female with 6 weeks of diarrhea, admitted with weakness, dehydration, abdominal cramps with a CT scan of the abdomen and pelvis showing mural thickening of the distal transverse colon down to the sigmoid colon. I suspect that the patient has pseudomembranous colitis. The patient was started on vancomycin 250 mg four times a day by Infectious Disease. RECOMMENDATIONS: 1. Await stool for C. diff. 2. We will start the patient on Lactobacillus 1 tablet p.o. t.i.d. Gustavo Khan MD
[2018-03-28 14:25] LABS: PROTHROMBIN TIME 12.4 SECONDS (9.4-12.5)
--- NOTE | 2018-03-28 15:00 | PN ---
Copied To: Peterson Biggs MD Attending MD: Peterson Biggs MD DATE: 03/28/2018 SUBJECTIVE: The patient is seen earlier this morning. No fevers, no chills. No nausea. PHYSICAL EXAMINATION: VITAL SIGNS: Temperature is 98, blood pressure is 108/50, respiratory rate of 16. HEENT: Unremarkable. NECK: Supple. LUNGS: Have decreased breath sounds. HEART: Normal S1, S2. ABDOMEN: Soft. DATA: Laboratory examination is noted. The patient's white count is 8.5. Chemistry reveals a BUN of 22, creatinine of 0.8. Microbiology reveals gram-negative elzbieta and a gram positive cocci in the urine, her blood cultures are negative. The review of orders reveals the patient is on p.o. vancomycin and IV Flagyl and urinalysis reveals 5 to [address] Gastelum's note from today is reviewed. ASSESSMENT AND PLAN: This is an 82-year-old female with hypertension, history of glaucoma and cataracts, peripheral vascular disease, history of acute kidney failure, rhabdomyolysis, high cholesterol, Escherichia coli bacteremia in 2013, Escherichia coli urinary tract infection, now admitted with severe left-sided hemicolitis, must rule out pseudomembranous colitis versus an antibiotic-induced diarrhea such as Klebsiella oxytoca, may be secondary to Augmentin versus ischemic colitis and 0157 also is in the differential, currently on IV Flagyl, p.o. vancomycin. We will make further recommendations upon availability of initial results. Peterson Biggs MD
[2018-03-28] MEDS: Lactobacillus Acidophilus 500 MU Cap PO SCH ×2 (15:51→18:32)
[2018-03-29] MEDS: metroNIDAZOLE IV 500 mg/100 ml 500 MG/100 ML BAG IVPB SCH (06:28)
[2018-03-29 07:57] VITALS: BP 119/58
[2018-03-29] MEDS: Lactobacillus Acidophilus 500 MU Cap PO SCH ×2 (10:19→14:30)
[2018-03-29] MEDS: Meropenem IV 1 gm in NS 50 ML IVPB SCH (10:19)
[2018-03-29] MEDS: Vancomycin 25 MG/ML PO SCH (10:22)
--- NOTE | 2018-03-29 12:50 | PN ---
Copied To: Gustavo Khan MD Attending MD: Gustavo Khan MD DATE: 03/29/2018 SUBJECTIVE: The patient is seen lying in bed, taking solid foods for breakfast. She denies any further diarrhea or abdominal cramps. PHYSICAL EXAMINATION: VITAL SIGNS: Reveal temperature of 98.1, blood pressure 119/58, heart rate of 86. HEENT: Reveals sclerae to be white. Conjunctivae pink. Oral mucosa is moist. NECK: Supple. CHEST: Lungs are clear. HEART: Reveals a regular rate and rhythm. ABDOMEN: Soft, nontender. No mass. EXTREMITIES: Show no edema. LABORATORY DATA: No new laboratory data are available. Her stool for C. diff toxin is negative. IMPRESSION: Probable acute self-limited colitis with CT scan of the abdomen and pelvis showing mural thickening from the distal transverse colon down to the sigmoid colon. Her diarrhea appears to have improved. Stool for C. diff is negative. RECOMMENDATIONS: 1. Continue supportive treatment. 2. The patient is stable from a GI standpoint. I have advised the patient to follow up with me in the office after discharge to arrange for an elective outpatient colonoscopy. Gustavo Khan MD
--- NOTE | 2018-03-29 13:58 | PN ---
Copied To: Ulysses Gastelum MD Attending MD: Ulysses Gastelum MD DATE: 03/29/2018 The patient is tolerating her diet well. She was admitted with colitis. She is afebrile today. Vital signs are stable. She still has some diarrhea, had no diarrhea yesterday, but did have diarrhea this morning. She is on IV antibiotics for colitis. Her stool for clostridium difficile is pending. The patient is afebrile. She did some physical therapy. She will be transferred to [facility]. Ulysses Gastelum MD
--- NOTE | 2018-03-29 14:01 | PN ---
Copied To: Peterson Biggs MD Attending MD: Peterson Biggs MD DATE: 03/29/2018 SUBJECTIVE: The patient is in bed in no acute distress, nontoxic. PHYSICAL EXAMINATION: VITAL SIGNS: Temperature is 98, blood pressure is 120/70, respiratory rate 16. HEENT: Unremarkable. NECK: Supple. LUNGS: Have decreased breath sounds. HEART: Normal S1, S2. ABDOMINAL: Soft, nontender. LABORATORY EXAMINATION: Reveals the patient's white count of 8.5 and hemoglobin of 10, platelets of 394. BUN of 22, creatinine of 0.8. The patient's urinalysis is noted and stool for rotavirus antigen is negative. Microbiology reveals the blood cultures have no growth. The urine cultures are Gram-negative elzbieta and a Gram-positive cocci. The stool C. diff antigen and toxin are both negative and lactose grain buyer is noted. The stool culture and review of orders reveals the patient to be on IV Flagyl, p.o. vancomycin and the patient is also on meropenem. ASSESSMENT AND PLAN: An 82-year-old female seen earlier today in 578, bed 1, doing much better however, and with a history of glaucoma and cataracts, peripheral vascular disease with acute kidney failure, rhabdomyolysis, high cholesterol, Escherichia coli bacteremia in 2014, Escherichia coli urinary tract infections, admitted with a severe left-sided hemicolitis with a negative Clostridium difficile antigen and toxin rules out pseudomembranous colitis. We will discontinue the IV Flagyl and discontinue the p.o. vancomycin, currently on meropenem. Awaiting for stool cultures. Peterson Biggs MD : 03/29/2018 10:20:14
[2018-03-29 14:51] VITALS: PULSE 81; RESP 18; TEMP 97.8; O2SAT 100
--- NOTE | 2018-03-30 15:13 | DS ---
Copied To: Ulysses Gastelum MD Attending MD: Ulysses Gastelum MD HISTORY OF PRESENT ILLNESS: The patient is an 82-year-old white female, admitted to the hospital with abdominal pain, was found to have colitis on CT, was seen in consultation by Dr. Khan and also by Dr. Biggs. The patient was placed on IV antibiotics. The patient improved slowly. She had chronic history of diarrhea for approximately 6 weeks. She started to tolerate her diet. She was able to be switched to a diarrhea control diet. She became afebrile and vital signs were stable. She was able to be discharged to TCU. FINAL DISCHARGE DIAGNOSES: Acute colitis, chronic diarrhea, history of rhabdomyolysis and high fall risk. Ulysses Gastelum MD
== END 2018-03-29 15:06 | DRG 386 ==
LOC: ED 13:21 → ERH 18:37 → 5RSO 21:23
PROVIDERS: ADMIT Internal Medicine; ATTEND Internal Medicine
DX: K51.50 Left sided colitis without complications (principal); R64 Cachexia; Z68.1 Body mass index [BMI] 19.9 or less, adult; D50.9 Iron deficiency anemia, unspecified; R62.7 Adult failure to thrive; E86.0 Dehydration; I73.9 Peripheral vascular disease, unspecified; I10 Essential (primary) hypertension; E78.00 Pure hypercholesterolemia, unspecified; H40.9 Unspecified glaucoma; H91.93 Unspecified hearing loss, bilateral; H26.9 Unspecified cataract; Z87.440 Personal history of urinary (tract) infections; Z87.891 Personal history of nicotine dependence

== ENCOUNTER 2018-03-29 15:13 | Inpatient (IN) | payer OTHER, MEDICARE ==
[2018-03-29] MEDS: Lactobacillus Acidophilus 500 MU Cap PO SCH (17:07)
[2018-03-29] MEDS ORDERED: Pneumococcal 23-Valent Vaccine IM ONE (17:42)
[2018-03-29] MEDS ORDERED: Meropenem IV 1 gm in NS 50 ML IVPB SCH (22:00)
[2018-03-30] MEDS: Meropenem IV 1 gm in NS 50 ML IVPB SCH ×2 (05:37→17:09)
--- NOTE | 2018-03-30 09:22 | PN ---
Copied To: Gustavo Khan MD Attending MD: Gustavo Khan MD DATE: 03/30/2018 SUBJECTIVE: The patient is sitting up in bed. She is comfortable. She is tolerating solid foods. She denies any further diarrhea or abdominal pain. She denies any nausea or vomiting. PHYSICAL EXAMINATION VITAL SIGNS: Reveal a temperature of 98.1, blood pressure 147/81, heart rate of 81. HEENT: Reveals sclerae to be white. Oral mucosa is moist. Conjunctivae pink. NECK: Supple. CHEST: Reveal lungs to be clear. HEART: Reveals a regular rate and rhythm. ABDOMEN: Soft, nontender. EXTREMITIES: Show no edema. IMPRESSION: An 82-year-old female with several weeks of diarrhea with CT scan of the abdomen and pelvis showing mural thickening of the distal transverse colon all the way down to the sigmoid colon. Her stool for Clostridium difficile toxin was negative. I suspect that this is an acute self limited colitis. Stool culture was positive for a lactose last trimmer in sub Selenite broth. Final identification is pending. RECOMMENDATIONS: 1. Continue probiotics. 2. Continue observation. 3. Continue physical therapy for deconditioning. Gustavo Khan MD
[2018-03-30] MEDS: Lactobacillus Acidophilus 500 MU Cap PO SCH ×3 (09:27→17:20)
--- NOTE | 2018-03-30 12:31 | PN ---
Copied To: Ulysses Gastelum MD Attending MD: Ulysses Gastelum MD DATE OF EXAM: HISTORY OF PRESENT ILLNESS: An 82-year-old white female admitted to TCU from [facility] with colitis. The patient is better today. She is improved, less diarrhea. PHYSICAL EXAMINATION: VITAL SIGNS: She is afebrile. Vital signs are stable. PLAN: She remains on IV antibiotics. She was seen presently by Dr. Khan. I have plans to continue IV antibiotics and slowly advance her diet. Ulysses Gastelum MD
--- NOTE | 2018-03-30 14:58 | CP.PCM.CON ---
History of Present Illness - History of Present Illness History of Present Illness: 82 year old female with PMH of HTN, dyslipidemia, history of E. coli bacteremia in 2014, glaucoma, cataracts, peripheral vascular disease came in because of loose bowel movements 5-[address] A/P revealed left sided hemicolitis. She has been on antibiotics for this and has been getting better. She is now transferred to [facility] for continued medical therapy and physical therapy. Infectious diseases consult is requested to continue her antibiotic therapy. She has no fever or chills, no nausea or vomiting, no diarrhea, no abdominal pain, no headache or dizziness, no chest pain, no SOB, no cough. Review of Systems - Review of Systems All systems: reviewed and no additional remarkable complaints except (as per HPI ) Past Patient History - Infectious Disease Hx of Infectious Diseases: None - Tetanus Immunizations Tetanus Immunization: Unknown - Past Social History Smoking Status: Former Smoker - CARDIAC Hx Hypertension: Yes - PULMONARY Hx Respiratory Disorders: No - NEUROLOGICAL Hx Neurological Disorder: Yes Hx Dizziness: Yes - HEENT Hx HEENT Problems: Yes Hx Cataracts: Yes Hx Deafness: Yes (uses b/l hearing aids which are home) Hx Glaucoma: Yes Other/Comment: pt had sx for cataracts and glaucoma and does not need eyeglasses or eye drops as per daughter bhakti - RENAL Hx Chronic Kidney Disease: No - ENDOCRINE/METABOLIC Hx Endocrine Disorders: Yes - HEMATOLOGICAL/ONCOLOGICAL Hx Blood Disorders: No - INTEGUMENTARY Hx Dermatological Problems: Yes Other/Comment: laceration, facial contusion bruising noted left side of face, bruising - MUSCULOSKELETAL/RHEUMATOLOGICAL Hx Falls: Yes (past) - GASTROINTESTINAL Hx Gastrointestinal Disorders: Yes (colitis) - GENITOURINARY/GYNECOLOGICAL Hx Genitourinary Disorders: No Hx Reproductive Disorders: No - PSYCHIATRIC Hx Psychophysiologic Disorder: No - SURGICAL HISTORY Other/Comment: stents in legs - ANESTHESIA Hx Anesthesia: Yes Hx Anesthesia Reactions: No Meds Allergies/Adverse Reactions: Allergies Allergy/AdvReac Type Severity Reaction Status Date / Time Penicillins Allergy Mild ANAPHYLAXIS Verified 03/29/18 15:58 - Medications Medications: Current Medications Acetaminophen (Tylenol 325mg Tab) 650 mg PO Q4H PRN; Protocol PRN Reason: Pain, moderate (4-7) Alprazolam (Xanax) 0.5 mg PO HS MIGNON PRN Reason: Protocol Last Admin: 03/29/18 21:40 Dose: 0.5 mg Meropenem (Merrem Iv 1 Gm Premix) 50 mls @ 100 mls/hr IVPB 0600,1800 MIGNON PRN Reason: Protocol Last Admin: 03/30/18 05:37 Dose: 100 mls/hr Lactobacillus Acidophilus (Bacid Acidophilus) 1 cap PO TID MIGNON PRN Reason: Protocol Last Admin: 03/29/18 17:07 Dose: 1 cap Lisinopril (Zestril) 30 mg PO DAILY MIGNON PRN Reason: Protocol Physical Exam - Constitutional Appears: Chronically Ill - Head Exam Head Exam: NORMAL INSPECTION - Respiratory Exam Respiratory Exam: Decreased Breath Sounds - Cardiovascular Exam Cardiovascular Exam: +S1, +S2 - GI/Abdominal Exam GI & Abdominal Exam: Soft. absent: Tenderness Results - Vital Signs Recent Vital Signs: Last Vital Signs Temp 98.6 F 03/29/18 17:31 Pulse 74 03/29/18 17:31 Resp 16 03/29/18 17:31 BP 99/45 L 03/29/18 17:31 Pulse Ox Assessment & Plan - Assessment and Plan (Free Text) Plan: Assessment Left sided hemicolitis HTN dyslipidemia history of E. coli bacteremia in 2013 glaucoma cataracts peripheral vascular disease Plan Continue Merrem and will monitor clinically
[2018-03-31] MEDS: Meropenem IV 1 gm in NS 50 ML IVPB SCH ×2 (05:39→17:48)
--- NOTE | 2018-03-31 09:31 | PN ---
Copied To: Peterson Biggs MD Attending MD: Peterson Biggs MD DATE: 03/31/2018 SUBJECTIVE: The patient is in bed in no acute distress, nontoxic. PHYSICAL EXAMINATION: VITAL SIGNS: Temperature is 98, blood pressure is 103/50, respiratory rate of 16. HEENT: Examination of HEENT is unremarkable. NECK: Supple. LUNGS: Have decreased breath sounds. HEART: Normal S1 and S2. ABDOMEN: Soft. LABORATORY DATA: Reviewed. ASSESSMENT/PLAN: This is an 82-year-old female in room 319 and who is admitted with left-sided hemicolitis and hypertension, dyslipidemia, history of Escherichia colitis bacteremia, glaucoma, cataracts, peripheral vascular disease on meropenem. The patient is improving. We discussed with gastrointestinal and today is day #5 of meropenem. The patient did have Citrobacter and Streptococcus in the urine. The stool Clostridium difficile antigen and toxin are negative and the stool cultures, no Salmonella, Shigella or Campylobacter. Dr. Gastelum's note is reviewed. We will most likely discontinue the meropenem in the next 24-48 hours. The patient did not have any fevers in the acute care, did not have any leukocytosis and the stool cultures are negative. Peterson Biggs MD
[2018-03-31] MEDS: Lactobacillus Acidophilus 500 MU Cap PO SCH ×3 (10:17→17:47)
--- NOTE | 2018-03-31 11:47 | PN ---
Copied To: Ulysses Gastelum MD Attending MD: Ulysses Gastelum MD DATE: 03/31/2018 SUBJECTIVE: She is an 82-year-old white female admitted to the hospital with colitis. She is doing well. She is afebrile. Tolerating her diet. Less diarrhea. PHYSICAL EXAMINATION: ABDOMEN: Soft. CHEST: Clear to auscultation and percussion. PLAN: Is to continue IV antibiotics and physical therapy. Ulysses Gastelum MD
[2018-03-31] MEDS ORDERED: Sodium Chloride 0.9% 1,000 ML IV ONE (14:06)
[2018-03-31] MEDS: Sodium Chloride 0.9% 1,000 ML IV SCH (14:20)
[2018-04-01] MEDS: Meropenem IV 1 gm in NS 50 ML IVPB SCH ×2 (05:21→17:06)
[2018-04-01] MEDS: Sodium Chloride 0.9% 1,000 ML IV SCH ×2 (06:28→14:42)
[2018-04-01 06:51] LABS: HEMOGLOBIN 9.2 g/dL (12.0-16.0); MEAN CORPUSCULAR HEMOGLOBIN 28.8 pg (25.0-35.0); MEAN CORPUSCULAR HGB CONC 32.1 g/dl (31.0-37.0); MEAN PLATELET VOLUME 8.5 fl (7.0-11.0); RBC 3.19 10^6/uL (3.5-6.1); RED CELL DISTRIBUTION WIDTH 17.2 % (11.5-14.5); WHITE BLOOD COUNT 5.3 10^3/ul (4.5-11.0)
[2018-04-01 07:44] LABS: BLOOD UREA NITROGEN 11 mg/dL (7-21); CALCIUM 8.1 mg/dL (8.4-10.5); GFR AFRICAN-AMERICAN > 60; GFR NON-AFRICAN AMERICAN > 60
[2018-04-01] MEDS: Lactobacillus Acidophilus 500 MU Cap PO SCH ×3 (09:48→17:06)
--- NOTE | 2018-04-01 12:52 | PN ---
Copied To: Peterson Biggs MD Attending MD: Peterson Biggs MD DATE: 04/01/2018 SUBJECTIVE: The patient is in bed, in no acute distress, nontoxic. PHYSICAL EXAMINATION: VITAL SIGNS: Temperature is 97, blood pressure is 120/70, respiratory rate of 20. HEENT: Unremarkable. NECK: Supple. LUNGS: Have decreased breath sounds. HEART: Normal S1, S2. ABDOMINAL: Soft, nontender. LABORATORY EXAMINATION: Reveals a white count of 5.3, hemoglobin of 9, platelets of 339. Chemistries are noted and microbiology is reviewed. ASSESSMENT AND PLAN: An 82-year-old female who was seen earlier today and was admitted with left-sided hemicolitis, hypertension, dyslipidemia, history of Escherichia coli bacteremia, history of glaucoma, cataracts, peripheral vascular disease and the patient is on day #6 of meropenem. The patient is doing well. The patient did have Citrobacter and strep in the urine. The stool Clostridium difficile antigen and toxin are negative. The stool cultures are negative. We will discontinue the meropenem within the next 24 hours. Peterson Biggs MD : 04/01/2018 10:54:22
--- NOTE | 2018-04-01 13:55 | PN ---
Copied To: Ulysses Gastelum MD Attending MD: Ulysses Gastelum MD DATE: 04/01/2018 SUBJECTIVE: This is an 82-year-old white female admitted to the hospital with colitis. She is much improved in TCU, doing well with IV antibiotics and physical therapy. OBJECTIVE: VITAL SIGNS: The patient is afebrile. CHEST: Clear to auscultation. HEART: Regular sinus rhythm . ABDOMEN: Soft. There is no diarrhea. Ulysses Gastelum MD
--- NOTE | 2018-04-01 21:54 | CP.PCM.CON ---
History of Present Illness - History of Present Illness History of Present Illness: She was admitted with descending colon colitis for more than 6 weeks. She had diarrhea for past few weeks, abdominal pain. CT abdomen showed colon thickening consistent with colitis. She also has severe iron deficiency anemia, s/p several doses of IV iron. Colitis has improved. Her BP has been low today- 100/58. She had 1-2 loose stools today. Abdominal pain has improved. Complaining of fatigue. Review of Systems - Constitutional Constitutional: Anorexia, Fatigue, Malaise, Weakness - EENT Eyes: absent: As Per HPI, Blind Spots, Blurred Vision, Change in Vision, Decreased Night Vision, Diplopia, Discharge, Dry Eye, Exophthalmos, Floaters, Irritation, Itchy Eyes, Loss of Peripheral Vision, Pain, Photophobia, Requires Corrective Lenses, Sees Flashes, Spots in Vision, Tunnel Vision, Other Visual Disturbances, Loss of Vision, Other Ears: absent: As Per HPI, Decreased Hearing, Ear Discharge, Ear Pain, Tinnitus, Abnormal Hearing, Disequilibrium, Dizziness, Other Nose/Mouth/Throat: absent: As Per HPI, Epistaxis, Nasal Congestion, Nasal Discharge, Nasal Obstruction, Nasal Trauma, Nose Pain, Post Nasal Drip, Sinus Pain, Sinus Pressure, Bleeding Gums, Change in Voice, Dental Pain, Dry Mouth, Dysphagia, Halitosis, Hoarsness, Lip Swelling, Mouth Lesions, Mouth Pain, Odynophagia, Sore Throat, Throat Swelling, Tongue Swelling, Facial Pain, Neck Pain, Neck Mass, Other - Breasts Breasts: absent: As Per HPI, Change in Shape, Mass, Pain, Nipple Discharge, Nipple Inversion, Skin Changes, Swelling, Other - Cardiovascular Cardiovascular: absent: As Per HPI, Acrocyanosis, Chest Pain, Chest Pain at Rest , Chest Pain with Activity, Claudication, Diaphoresis, Dyspnea, Dyspnea on Exertion, Edema, Irregular Heart Rhythm, Pain Radiating to Arm/Neck/Jaw, Leg Edema, Leg Ulcers, Lightheadedness, Orthopnea, Palpitations, Paroxysmal Nocturnal Dyspnea, Pedal Edema, Radiating Pain, Rapid Heart Rate, Slow Heart Rate, Syncope, Other - Respiratory Respiratory: absent: As Per HPI, Cough, Dyspnea, Hemoptysis, Dyspnea on Exertion , Wheezing, Snoring, Stridor, Pain on Inspiration, Chest Congestion, Excessive Mucous Production, Change in Mucous Color, Pain with Coughing, Other - Gastrointestinal Gastrointestinal: As Per HPI - Genitourinary Genitourinary: absent: As Per HPI, Change in Urinary Stream, Difficulty Urinating, Dysuria, Flank Pain, Hematuria, Pyuria, Nocturia, Urinary Incontinence, Urinary Frequency, Urinary Hesitance, Urinary Urgency, Voiding Freq/Small Amts, Freq UTI, Hx Renal/Bladder Calculi, Hx /Renal Surgery, Bladder Distension, Other - Reproductive: Female Reproductive:Female: absent: As Per HPI, Amenorrhea, Amenorrhea/ Control, Currently Menstual, Cycle <21 Days, Cycle >35 Days, Cycle Variable, Menses 1-7 Days, Menses >/= 8 Days, Menses Variable, Cycle > 4 Weeks Between, No Menses for 6 Months, Heavy Menses, Light Menses, Normal Menses, Spotting Between Cycles , S/P Hysterectomy, Menopausal, Post Menopausal, Premenarche, Abnormal Vaginal Bleeding, Dysmenorrhea, Dyspareunia, Genital Lesions, Genital Pruritis, Pelvic Pain, Prolapse Symptoms, Sexual Dysfunction, Vaginal Discharge, Vaginal Dryness , Vaginal Odor, Vaginal Pruritis, Other - Menstruation Menstruation: absent: As Per HPI, Amenorrhea, Amenorrhea/ Control, Currently Menstual, Cycle <21 Days, Cycle >35 Days, Cycle Variable, Menses 1-7 Days, Menses >/= 8 Days, Menses Variable, Cycle > 4 Weeks Between, No Menses for 6 Months, Heavy Menses, Light Menses, Normal Menses, Spotting Between Cycles , S/P Hysterectomy, Menopausal, Post Menopausal, Premenarche, Abnormal Vaginal Bleeding, Dysmenorrhea, Other - Musculoskeletal Musculoskeletal: As Per HPI - Integumentary Integumentary: absent: As Per HPI, Acne, Alopecia, Bleeding Lesions, Change in Hair, Change in Nails, Change in Pigmentation, Changing Lesions, Dry Skin, Erythema, Furuncle, Hirsutism, Lesions, New Lesions, Non-Healing Lesions, Photosensitivity, Pruritus, Rash, Skin Pain, Skin Ulcer, Sores, Striae, Swelling , Unusual Bruising, Wounds, Jaundice, Other - Neurological Neurological: absent: As Per HPI, Abnormal Gait, Abnormal Hearing, Abnormal Movements, Abnormal Speech, Behavioral Changes, Burning Sensations, Confusion, Convulsions, Disequilibrium, Dizziness, Numbness, Focal Weakness, Frequent Falls , Headaches, Lack of Coordination, Loss of Vision, Memory Loss, Paresthesias, Radicular Pain, Restless Legs, Sensory Deficit, Syncope, Tingling, Tremor, Vertigo, Weakness, Other Visual Disturbances, Other - Psychiatric Psychiatric: absent: As Per HPI, Abnormal Sleep Pattern, Anhedonia, Anxiety, Auditory Hallucinations, Behavioral Changes, Change in Appetite, Change in Libido, Confusion, Depression, Difficulty Concentrating, Hallucinations, Homicidal Ideation, Hopelessness, Irritability, Memory Loss, Mood Swings, Panic Attacks, Paranoia, Suicidal Ideation, Visual Hallucinations, Tactile Hallucinations, Other - Endocrine Endocrine: absent: As Per HPI, Change in Body Appearance, Change in Libido, Cold Intolorance, Deepening of Voice, Excessive Sweating, Fatigue, Flushing, Heat Intolorance, Increase in Ring/Shoe/Hat Size, Palpitations, Polydipsia, Polyphagia, Polyuria, Other - Hematologic/Lymphatic Hematologic: As Per HPI Past Patient History - Infectious Disease Hx of Infectious Diseases: None - Tetanus Immunizations Tetanus Immunization: Unknown - Past Social History Smoking Status: Former Smoker - CARDIAC Hx Hypertension: Yes - PULMONARY Hx Respiratory Disorders: No - NEUROLOGICAL Hx Neurological Disorder: Yes Hx Dizziness: Yes - HEENT Hx HEENT Problems: Yes Hx Cataracts: Yes Hx Deafness: Yes (uses b/l hearing aids which are home) Hx Glaucoma: Yes Other/Comment: pt had sx for cataracts and glaucoma and does not need eyeglasses or eye drops as per daughter bhakti - RENAL Hx Chronic Kidney Disease: No - ENDOCRINE/METABOLIC Hx Endocrine Disorders: Yes - HEMATOLOGICAL/ONCOLOGICAL Hx Blood Disorders: No - INTEGUMENTARY Hx Dermatological Problems: Yes Other/Comment: laceration, facial contusion bruising noted left side of face, bruising - MUSCULOSKELETAL/RHEUMATOLOGICAL Hx Falls: Yes (past) - GASTROINTESTINAL Hx Gastrointestinal Disorders: Yes (colitis) - GENITOURINARY/GYNECOLOGICAL Hx Genitourinary Disorders: No Hx Reproductive Disorders: No - PSYCHIATRIC Hx Psychophysiologic Disorder: No - SURGICAL HISTORY Other/Comment: stents in legs - ANESTHESIA Hx Anesthesia: Yes Hx Anesthesia Reactions: No Meds Allergies/Adverse Reactions: Allergies Allergy/AdvReac Type Severity Reaction Status Date / Time Penicillins Allergy Mild ANAPHYLAXIS Verified 03/29/18 15:58 - Medications Medications: Current Medications Acetaminophen (Tylenol 325mg Tab) 650 mg PO Q4H PRN; Protocol PRN Reason: Pain, moderate (4-7) Alprazolam (Xanax) 0.5 mg PO HS MIGNON PRN Reason: Protocol Last Admin: 04/01/18 21:18 Dose: 0.5 mg Meropenem (Merrem Iv 1 Gm Premix) 50 mls @ 100 mls/hr IVPB 0600,1800 MIGNON PRN Reason: Protocol Last Admin: 04/01/18 17:06 Dose: 100 mls/hr Sodium Chloride (Sodium Chloride 0.9%) 1,000 mls @ 80 mls/hr IV .[id number] [facility] Last Admin: 04/01/18 14:42 Dose: Not Given Lactobacillus Acidophilus (Bacid Acidophilus) 1 cap PO TID MIGNON PRN Reason: Protocol Last Admin: 04/01/18 17:06 Dose: 1 cap Lisinopril (Zestril) 30 mg PO DAILY MIGNON PRN Reason: Protocol Last Admin: 04/01/18 09:49 Dose: 30 mg Loperamide HCl (Imodium) 2 mg PO Q8H PRN PRN Reason: Diarrhea Last Admin: 03/31/18 14:18 Dose: 2 mg Physical Exam - Constitutional Appears: Chronically Ill - Head Exam Head Exam: ATRAUMATIC, NORMAL INSPECTION, NORMOCEPHALIC - Eye Exam Eye Exam: absent: Conjunctival injection, EOMI, Normal appearance, Nystagmus, Periorbital swelling, Periorbital tenderness, PERRL, Scleral icterus Pupil Exam: absent: Fixed, Irregular, Miosis, Mydriatic, NORMAL ACCOMODATION, PERRL, Unequal - ENT Exam ENT Exam: absent: Mucous Membranes Dry, Mucous Membranes Moist, Normal Exam, Normal External Ear Exam, Normal Oropharynx, TM's Normal Bilaterally - Neck Exam Neck exam: Negative for: Full Rom, Lymphadenopathy, Meningismus, Normal Inspection, Tenderness, Thyromegaly - Respiratory Exam Respiratory Exam: Clear to Auscultation Bilateral, NORMAL BREATHING PATTERN - Cardiovascular Exam Cardiovascular Exam: REGULAR RHYTHM, +S1, +S2 - GI/Abdominal Exam GI & Abdominal Exam: Normal Bowel Sounds, Soft - Extremities Exam Extremities exam: Positive for: normal capillary refill, normal inspection - Back Exam Back exam: NORMAL INSPECTION - Psychiatric Exam Psychiatric exam: Normal Affect - Skin Skin Exam: Intact, Pallor, Warm Results - Vital Signs Recent Vital Signs: Last Vital Signs Temp 98.1 F 04/01/18 17:00 Pulse 77 04/01/18 17:00 Resp 16 04/01/18 17:00 BP 135/55 L 04/01/18 17:00 Pulse Ox 98 04/01/18 17:00 - Labs Result Diagrams: 04/01/18 06:00 04/01/18 06:00 Labs: Laboratory Results - last 24 hr 04/01/18 04/01/18 06:00 06:00 WBC 5.3 D RBC 3.19 L Hgb 9.2 L Hct 28.7 L MCV 90.0 D MCH 28.8 MCHC 32.1 RDW 17.2 H Plt Count 339 MPV 8.5 Sodium 138 Potassium 4.2 Chloride 108 H Carbon Dioxide 27 Anion Gap 7 L BUN 11 Creatinine 0.5 L Est GFR ( Amer) > 60 Est GFR (Non-Af Amer) > 60 Random Glucose 77 Calcium 8.1 L Assessment & Plan - Assessment and Plan (Free Text) Assessment: 1. Chronic colitis : on IV antibiotics as per ID. recovering. C-diff negative. 2. Anemia : iron deficiency . No obvious bleeding. one dose of IV iron 200 mg today. Will continue IV iron upon discharge from hospital. 3. HTN : hypotension today. Mild dehydration . IVF NS 80cc/hr for 1 litre. 4. labs ordered for tomorrow. 5. PT to continue. Thank you Dr. Gastelum for allowing us to participate in her care. - Date & Time Date: 03/31/18 Time: 11:00
[2018-04-02] MEDS: Meropenem IV 1 gm in NS 50 ML IVPB SCH ×2 (05:13→17:07)
[2018-04-02] MEDS: Sodium Chloride 0.9% 1,000 ML IV SCH (06:50)
[2018-04-02] MEDS: Lactobacillus Acidophilus 500 MU Cap PO SCH ×3 (09:49→17:07)
--- NOTE | 2018-04-02 11:19 | PN ---
Copied To: Ulysses Gastelum MD Attending MD: Ulysses Gastelum MD DATE: 04/02/2018 SUBJECTIVE: An 82-year-old white female in TCU. Doing physical therapy, occupational therapy. Finishing course of antibiotics for colitis. The patient is afebrile. Vital signs are stable. She has no further diarrhea. Her abdomen is soft. Her C. diff is negative. Plan is to finish course of antibiotics and continuation of physical therapy. Ulysses Gastelum MD
--- NOTE | 2018-04-02 14:17 | CP.PCM.PN ---
Subjective - Date & Time of Evaluation Date of Evaluation: 04/02/18 Time of Evaluation: 12:25 - Subjective Subjective: No fevers, not in distress, comfortable on a chair, improved abdominal pain. Objective - Vital Signs/Intake and Output Vital Signs (last 24 hours): Temp Pulse Resp BP Pulse Ox 98.1 F 77 16 135/55 L 98 04/01/18 17:00 04/01/18 17:00 04/01/18 17:00 04/01/18 17:00 04/01/18 17:00 - Medications Medications: Current Medications Acetaminophen (Tylenol 325mg Tab) 650 mg PO Q4H PRN; Protocol PRN Reason: Pain, moderate (4-7) Alprazolam (Xanax) 0.5 mg PO HS MIGNON PRN Reason: Protocol Last Admin: 03/31/18 21:17 Dose: 0.5 mg Meropenem (Merrem Iv 1 Gm Premix) 50 mls @ 100 mls/hr IVPB 0600,1800 MIGNON PRN Reason: Protocol Last Admin: 04/01/18 17:06 Dose: 100 mls/hr Sodium Chloride (Sodium Chloride 0.9%) 1,000 mls @ 80 mls/hr IV .[id number] MIGNON Last Admin: 04/01/18 14:42 Dose: Not Given Lactobacillus Acidophilus (Bacid Acidophilus) 1 cap PO TID MIGNON PRN Reason: Protocol Last Admin: 04/01/18 17:06 Dose: 1 cap Lisinopril (Zestril) 30 mg PO DAILY MIGNON PRN Reason: Protocol Last Admin: 04/01/18 09:49 Dose: 30 mg Loperamide HCl (Imodium) 2 mg PO Q8H PRN PRN Reason: Diarrhea Last Admin: 03/31/18 14:18 Dose: 2 mg - Labs Labs: 04/01/18 06:00 04/01/18 06:00 - Constitutional Appears: Chronically Ill - Head Exam Head Exam: NORMAL INSPECTION - Respiratory Exam Respiratory Exam: Decreased Breath Sounds - Cardiovascular Exam Cardiovascular Exam: +S1, +S2 - GI/Abdominal Exam GI & Abdominal Exam: Soft. absent: Tenderness Assessment and Plan - Assessment and Plan (Free Text) Plan: Assessment Left sided hemicolitis HTN dyslipidemia history of E. coli bacteremia in 2013 glaucoma cataracts peripheral vascular disease Plan Continue Merrem and will continue to monitor clinically
[2018-04-03] MEDS: Meropenem IV 1 gm in NS 50 ML IVPB SCH ×2 (06:00→17:35)
[2018-04-03] MEDS: Lactobacillus Acidophilus 500 MU Cap PO SCH ×3 (10:04→17:34)
--- NOTE | 2018-04-03 11:48 | PN ---
DATE: 04/03/2018 An 82-year-old white female admitted to the hospital with colitis, on IV antibiotics. Afebrile. Vital signs are stable. The patient is tolerating her diet. She is doing physical therapy and occupational therapy. She is continuing her course of antibiotics. Ulysses Gastelum MD
--- NOTE | 2018-04-03 19:17 | CP.PCM.PN ---
Subjective - Date & Time of Evaluation Date of Evaluation: 04/03/18 Time of Evaluation: 10:50 - Subjective Subjective: Abdominal pain is better, no fevers, diarrhea is also improving. Objective - Vital Signs/Intake and Output Vital Signs (last 24 hours): Temp Pulse Resp BP Pulse Ox 98.3 F 84 18 132/65 97 04/02/18 16:53 04/02/18 16:53 04/02/18 16:53 04/02/18 16:53 04/02/18 16:53 Intake and Output: 04/03/18 04/03/18 06:59 18:59 Intake Total 360 Balance 360 - Medications Medications: Current Medications Acetaminophen (Tylenol 325mg Tab) 650 mg PO Q4H PRN; Protocol PRN Reason: Pain, moderate (4-7) Alprazolam (Xanax) 0.5 mg PO HS MIGNON PRN Reason: Protocol Last Admin: 04/02/18 21:16 Dose: 0.5 mg Meropenem (Merrem Iv 1 Gm Premix) 50 mls @ 100 mls/hr IVPB 0600,1800 MIGNON PRN Reason: Protocol Last Admin: 04/03/18 06:00 Dose: 100 mls/hr Lactobacillus Acidophilus (Bacid Acidophilus) 1 cap PO TID MIGNON PRN Reason: Protocol Last Admin: 04/02/18 17:07 Dose: 1 cap Lisinopril (Zestril) 30 mg PO DAILY MIGNON PRN Reason: Protocol Last Admin: 04/02/18 09:49 Dose: 30 mg Loperamide HCl (Imodium) 2 mg PO Q8H PRN PRN Reason: Diarrhea Last Admin: 04/02/18 13:03 Dose: 2 mg - Labs Labs: 04/01/18 06:00 04/01/18 06:00 - Constitutional Appears: Chronically Ill - Head Exam Head Exam: NORMAL INSPECTION - Neck Exam Neck Exam: absent: Meningismus - Respiratory Exam Respiratory Exam: Decreased Breath Sounds - Cardiovascular Exam Cardiovascular Exam: +S1, +S2 - GI/Abdominal Exam GI & Abdominal Exam: Soft. absent: Tenderness Assessment and Plan - Assessment and Plan (Free Text) Plan: Assessment Left sided hemicolitis HTN dyslipidemia history of E. coli bacteremia in 2014 glaucoma cataracts peripheral vascular disease Plan Continue Merrem day 8 and may be able to d/c antibiotics in the next 24 hours will continue to monitor clinically
[2018-04-04] MEDS: Meropenem IV 1 gm in NS 50 ML IVPB SCH (05:42)
[2018-04-04] MEDS: Lactobacillus Acidophilus 500 MU Cap PO SCH ×3 (10:30→17:45)
--- NOTE | 2018-04-04 11:33 | PN ---
Copied To: Ulysses Gastelum MD Attending MD: Ulysses Gastelum MD DATE: 04/04/2018 SUBJECTIVE: This is an 82-year-old white female doing well, finished her antibiotics. Abdomen is soft. No diarrhea. The patient is doing well in physical therapy and occupational. Plan is to discharge home after completion of physical therapy. Ulysses Gastelum MD
--- NOTE | 2018-04-04 13:20 | HP ---
Copied To: Ulysses Gastelum MD Attending MD: Ulysses Gastelum MD HISTORY OF PRESENT ILLNESS: The patient is admitted to TCU from [facility] after she was admitted at [facility] for infectious colitis. The patient is admitted for physical therapy, occupational therapy and continuation of IV antibiotics. PHYSICAL EXAMINATION: CHEST: Clear to auscultation. ABDOMEN: Slightly distended but bowel sounds are normoactive and nontender. EXTREMITIES: Without cyanosis, clubbing or edema. NEUROLOGIC: Grossly intact. IMPRESSION: An 82-year-old female with infectious colitis and being admitted for continuation of deconditioning for physical therapy and occupational therapy and also for continuation of IV antibiotics. Ulysses Gastelum MD
[2018-04-04 13:58] VITALS: RESP 16
--- NOTE | 2018-04-04 17:29 | CP.PCM.PN ---
Subjective - Date & Time of Evaluation Date of Evaluation: 04/04/18 Time of Evaluation: 10:15 - Subjective Subjective: Doing her physical therapy in the room, no fevers, diarrhea is improved. Objective - Vital Signs/Intake and Output Vital Signs (last 24 hours): Temp Pulse Resp BP Pulse Ox 98.3 F 89 18 132/60 97 04/02/18 16:53 04/03/18 10:04 04/02/18 16:53 04/03/18 10:04 04/02/18 16:53 - Medications Medications: Current Medications Acetaminophen (Tylenol 325mg Tab) 650 mg PO Q4H PRN; Protocol PRN Reason: Pain, moderate (4-7) Alprazolam (Xanax) 0.5 mg PO HS MIGNON PRN Reason: Protocol Last Admin: 04/02/18 21:16 Dose: 0.5 mg Meropenem (Merrem Iv 1 Gm Premix) 50 mls @ 100 mls/hr IVPB 0600,1800 MIGNON PRN Reason: Protocol Last Admin: 04/03/18 17:35 Dose: 100 mls/hr Lactobacillus Acidophilus (Bacid Acidophilus) 1 cap PO TID MIGNON PRN Reason: Protocol Last Admin: 04/03/18 17:34 Dose: 1 cap Lisinopril (Zestril) 30 mg PO DAILY MIGNON PRN Reason: Protocol Last Admin: 04/03/18 10:04 Dose: 30 mg Loperamide HCl (Imodium) 2 mg PO Q8H PRN PRN Reason: Diarrhea Last Admin: 04/02/18 13:03 Dose: 2 mg - Labs Labs: 04/01/18 06:00 04/01/18 06:00 - Constitutional Appears: Chronically Ill - Head Exam Head Exam: NORMAL INSPECTION - Respiratory Exam Respiratory Exam: Decreased Breath Sounds - Cardiovascular Exam Cardiovascular Exam: +S1, +S2 - GI/Abdominal Exam GI & Abdominal Exam: Soft. absent: Tenderness Assessment and Plan - Assessment and Plan (Free Text) Plan: Assessment Left sided hemicolitis HTN dyslipidemia history of E. coli bacteremia in 2013 glaucoma cataracts peripheral vascular disease Plan Continue Merrem day 9 and may be able to d/c antibiotics after today will continue to monitor clinically
--- NOTE | 2018-04-05 10:13 | DS ---
Copied To: Ulysses Gastelum MD Attending MD: Ulysses Gastelum MD HISTORY OF PRESENT ILLNESS: An 82-year-old white female admitted to [facility] for continuation of physical therapy, occupational therapy and treatment of acute colitis. The patient has finished her treatment of acute colitis. She is off of IV antibiotics, she has finished her therapy. She is ambulatory. She is doing well with physical therapy and occupational therapy. She will be discharged home in improved condition. FINAL DICHARGE DIAGNOSES: Acute colitis, deconditioning, hypertension. Ulysses Gastelum MD
[2018-04-05 10:38] VITALS: TEMP 97.7; O2SAT 94
[2018-04-05] MEDS: Lactobacillus Acidophilus 500 MU Cap PO SCH ×2 (10:40→13:02)
[2018-04-05 10:41] VITALS: BP 113/64; PULSE 78
--- NOTE | 2018-04-05 12:12 | CP.PCM.PN ---
Subjective - Date & Time of Evaluation Date of Evaluation: 04/05/18 Time of Evaluation: 10:10 - Subjective Subjective: Comfortable, afebrile, non-toxic. Objective - Vital Signs/Intake and Output Vital Signs (last 24 hours): Temp Pulse Resp BP Pulse Ox 98.2 F 78 16 115/67 98 04/04/18 10:00 04/04/18 10:00 04/04/18 10:00 04/04/18 10:32 04/04/18 10:00 Intake and Output: 04/04/18 04/04/18 06:59 18:59 Intake Total 420 Balance 420 - Medications Medications: Current Medications Acetaminophen (Tylenol 325mg Tab) 650 mg PO Q4H PRN; Protocol PRN Reason: Pain, moderate (4-7) Alprazolam (Xanax) 0.5 mg PO HS MIGNON PRN Reason: Protocol Last Admin: 04/03/18 21:19 Dose: 0.5 mg Lactobacillus Acidophilus (Bacid Acidophilus) 1 cap PO TID MIGNON PRN Reason: Protocol Last Admin: 04/04/18 13:33 Dose: 1 cap Lisinopril (Zestril) 30 mg PO DAILY MIGNON PRN Reason: Protocol Last Admin: 04/04/18 10:32 Dose: 30 mg Loperamide HCl (Imodium) 2 mg PO Q8H PRN PRN Reason: Diarrhea Last Admin: 04/02/18 13:03 Dose: 2 mg - Labs Labs: 04/01/18 06:00 04/01/18 06:00 - Constitutional Appears: Chronically Ill - Head Exam Head Exam: NORMAL INSPECTION - Respiratory Exam Respiratory Exam: Decreased Breath Sounds - Cardiovascular Exam Cardiovascular Exam: +S1, +S2 - GI/Abdominal Exam GI & Abdominal Exam: Soft. absent: Tenderness Assessment and Plan - Assessment and Plan (Free Text) Plan: Assessment Left sided hemicolitis, S/P treatment with antibiotics HTN dyslipidemia history of E. coli bacteremia in 2014 glaucoma cataracts peripheral vascular disease Plan completed course of Merrem - will continue to monitor clinically off antibiotics since she is at risk for nosocomial infections
--- NOTE | 2018-04-05 21:21 | PN ---
Copied To: Kimberley Ren MD Attending MD: Kimberley Ren MD DATE: 04/05/2018 SUBJECTIVE: She is comfortable in chair, in no acute distress. She was admitted with colitis, iron-deficiency anemia, COPD, CHF. Colitis has resolved markedly. She has one to two loose stools per day. She was treated with IV antibiotics. Hemoglobin/hematocrit stable at 9 gm/dL. REVIEW OF SYSTEMS: As per HPI. Rest of 12-point of review of systems reviewed negative. PHYSICAL EXAMINATION: GENERAL: Comfortable in bed, in no acute distress. VITAL SIGNS: Temperature 98.5, heart rate 80 per minute, blood pressure 120/70, respiratory rate 16 per minute, oxygen saturation 98% on room air. HEENT: Pallor positive. NECK: No lymphadenopathy. CHEST: Air entry present and equal bilaterally. No added sounds. CARDIOVASCULAR: S1, S2 normal. No murmur. No gallop. ABDOMEN: Soft, nontender. No hepatosplenomegaly. Extremities: No edema. [employer]: Alert and oriented x3. No focal sensory or motor deficit. LABORATORY DATA: Hemoglobin 9.2, white count 5.3, platelet count 339. Sodium 138, potassium 4.2, creatinine 0.5. MEDICATIONS: Reviewed. ASSESSMENT AND PLAN: 1. Colitis. 2. Iron-deficiency anemia. 3. Chronic obstructive pulmonary disease. 4. Congestive heart failure. PLAN: Hemoglobin and hematocrit stable. She received few doses of IV iron during this hospitalization. We will continue IV iron upon discharge from the hospital in the office. Colitis has improved markedly. She is being discharged today home. Followup appointment given in office for next week. Discussed with the patient. Discussed with the staff nurse. Kimberley Ren MD
== END 2018-04-05 14:20 | disposition home health service (06) | DRG 387 ==
LOC: TRCU 15:13
PROVIDERS: ADMIT Internal Medicine; ATTEND Internal Medicine
PROC: 3E03329 Introduction of Other Anti-infective into Peripheral Vein, Percutaneous Approach (ICD-10-PCS; 2018-03-29)
PROC: F07Z9FZ Gait Training/Functional Ambulation Treatment using Assistive, Adaptive, Supportive or Protective Equipment (ICD-10-PCS; principal; 2018-03-31)
PROC: F07Z8ZZ Transfer Training Treatment (ICD-10-PCS; 2018-03-31)
PROC: F07L6YZ Therapeutic Exercise Treatment of Musculoskeletal System - Lower Back / Lower Extremity using Other Equipment (ICD-10-PCS; 2018-03-31)
PROC: F08Z4FZ Home Management Treatment using Assistive, Adaptive, Supportive or Protective Equipment (ICD-10-PCS; 2018-04-01)
DX: K51.50 Left sided colitis without complications (principal); Z79.2 Long term (current) use of antibiotics; I11.0 Hypertensive heart disease with heart failure; I50.9 Heart failure, unspecified; I73.9 Peripheral vascular disease, unspecified; D50.9 Iron deficiency anemia, unspecified; H40.9 Unspecified glaucoma; J44.9 Chronic obstructive pulmonary disease, unspecified; H91.90 Unspecified hearing loss, unspecified ear; E78.5 Hyperlipidemia, unspecified; H26.9 Unspecified cataract; Z97.4 Presence of external hearing-aid; Z87.891 Personal history of nicotine dependence; Z88.0 Allergy status to penicillin

== ENCOUNTER 2018-06-20 08:15 | Day surgery (SDC) | payer MEDICARE ==
[2018-06-14 11:12] VITALS: BMI 18.1
[2018-06-20] MEDS ORDERED: Sodium Chloride 0.9% 1,000 ML IV SCH (08:45)
[2018-06-20] MEDS ORDERED: Propofol 10 mg/ml Inj (20 ML) ONE (10:04)
[2018-06-20 11:24] VITALS: RESP 16
[2018-06-20 11:44] VITALS: BP 155/78; PULSE 79
[2018-06-20 11:45] VITALS: O2SAT 100
[2018-06-20 11:49] VITALS: TEMP 97.6
== END 2018-06-20 12:20 | disposition home or self-care (01) ==
LOC: ENDO 08:15
PROVIDERS: ATTEND Specialist
DX: K56.699 Other intestinal obstruction unspecified as to partial versus complete obstruction (principal); K63.3 Ulcer of intestine; K63.5 Polyp of colon; K57.30 Diverticulosis of large intestine without perforation or abscess without bleeding; K29.40 Chronic atrophic gastritis without bleeding; K44.9 Diaphragmatic hernia without obstruction or gangrene; K21.9 Gastro-esophageal reflux disease without esophagitis; K64.8 Other hemorrhoids; D64.9 Anemia, unspecified
CPT/HCPCS: 43239; 45380; 45381; 45385; 88305; 88342; J2001; J2704; J7030; J7040